=== PATIENT | male | born 1935 | race Caucasian/White ===

== ENCOUNTER 2016-08-22 12:01 | Observation (INO) | payer OTHER ==
[~2016-08-22] VITALS: Ht 172.7 cm; Wt 68.0 kg
[2016-08-22] VITALS (9 sets, daily range): BP systolic 138–199; BP diastolic 69–91; PULSE 54–79; RESP 16–20; TEMP 97.4–97.9; O2SAT 96–98
[~2016-08-22 12:01] MED LIST: ASPI81TA82 PO; FOLI1 PO; LISI-366 PO; METF500 PO; PLAV75TA PO; THIA100T PO
[2016-08-22] MEDS ORDERED: SODIUM CHLORIDE 0.9% FLUSH 5 ML FLUSH IVF PRN (12:15)
[2016-08-22] MEDS ORDERED: ASPIRIN 325 MG TAB PO ONE (12:15)
--- NOTE | 2016-08-22 12:20 | PD ---
HPI Chief Complaint: Chest Pain Time Seen by Provider: 12:14 Travel History International Travel<30 days: No Contact w/Intl Traveler<30days: No Traveled to known affect area: No History of Present Illness HPI 81-year-old male that presents to the ED for evaluation of chest pain. Patient states that he has a history of hyperlipidemia, hypertension, diabetes, previous CVA as well as TIA no history of smoking to presents to the ED for evaluation of chest pain I ambulance. Patient states the chest pain started yesterday night when he comes and goes. Per patient he wasn't too worried about it but his ex- made him come. Ambulance gave patient 3 nitros, aspirin, 4 mg of morphine and it seemed to help with his pain. Per patient the pain seems to have dissipated now. Per patient he was a pressure-like pain that came and went. Per patient the pain was 7 out of 10. Did not radiate. Patient points to the mid chest as the area of the pain. He states that he has no construction job cost estimator but he is somewhat of a poor historian. He denies any nausea or vomiting. No abdominal pain. No bowel movement or urinary issues. He has no allergies to medication. He does not know if he has a construction job cost estimator. He denies any injuries or trauma. Per patient the symptoms worsened today and that 's what may his called the ambulance for him to come here. PFSH Past Medical History Hx Anticoagulant Therapy: Yes Arthritis: No Asthma: No Autoimmune Disease: No Blood Disorders: No Heart Rhythm Problems: No Cancer: Yes (BLADDER CANCER) Cardiovascular Problems: Yes High Cholesterol: Yes ("BORDERLINE" PER PT) Chemotherapy: No Chest Pain: Yes Congestive Heart Failure: No COPD: No Cerebrovascular Accident: Yes Diabetes: Yes Diminished Hearing: Yes (Bilateral LEVELOCK) Endocrine: Yes Gastrointestinal Disorders: No GERD: No Genitourinary: No Headaches: Yes Hiatal Hernia: No Hypertension: Yes Immune Disorder: No Implanted Vascular Access Dvce: Yes Kidney Stones: No Musculoskeletal: No Neurologic: Yes Psychiatric: No Reproductive: No Respiratory: No Immunizations Current: Yes Migraines: No Radiation Therapy: No Renal Failure: No Seizures: No Sickle Cell Disease: No Sleep Apnea: No Thyroid Disease: No Ulcer: No Past Surgical History Abdominal Surgery: No AICD: No Arteriovenous Shunt: No Body Medical Devices: URINARY CATH WITH LEG BAG Cardiac Surgery: No Ear Surgery: No Endocrine Surgery: No Eye Surgery: Yes (BL CATARACT) Genitourinary Surgery: Yes (PROSTATECTOMY) Gynecologic Surgery: No Insulin Pump: No Joint Replacement: No Neurologic Surgery: No Oral Surgery: Yes (TONSILLECTOMY) Pacemaker: No Prostatectomy: Yes Thoracic Surgery: No Tonsillectomy: Yes Other Surgery: Yes (TONSILLECTOMY, BL CATARACT SURGERY) Social History Alcohol Use: No (QUIT) Tobacco Use: No Substance Use: Yes Allergies-Medications (Allergen,Severity, Reaction): Coded Allergies: No Known Allergies (Verified , 08/22/16) Reported Meds & Prescriptions Reported Meds & Active Scripts Active Review of Systems General / Constitutional: No: Fever, Chills, Weight Gain, Weight Loss, Other Eyes: No: Diploplia, Blurred Vision, Photophobia, Drainage, Redness, Foreign Body Sensation, Pain, Tearing, Blind Spots, Visual changes, Blindness, Other HENT: No: Headaches, Vertigo, Lightheadedness, Sore Throat, Rhinitis, Rhinorrhea, Congestion, Nosebleed, Neck Stiffness, Neck Pain, Masses, Gingival Bleeding, Dental Difficulties, Ear Discharge, Earache, Other Cardiovascular: Positive: Chest Pain or Discomfort, Diaphoresis, No: Palpitations, Irregular Rhythm, Tachycardia, Syncope, Dyspnea on exertion, Varicosities, Edema, Cyanosis, Varicosities, Phlebitis, Claudication, Other Respiratory: No: Cough, Shortness of Breath, Wheezing, Sneezing, Orthopnea, Hemoptysis, Stridor, Night Sweats, Pleuritic Pain, Other Gastrointestinal: No: Nausea, Vomiting, Diarrhea, Abdominal Pain, Hematemesis, Hematochezia, Constipation, Changes in Bowel Habits, Indigestion, Dysphagia, Loss of Appetite, Other Genitourinary: No: Urgency, Frequency, Dysuria, Nocturia, Hematuria, Decreased Urinary Output, Oliguria, Hesitancy, Dribbling, Incontinence, Pelvic Pain, Flank Pain, Dyspareunia, Discharge, Dysmenorrhea, Menorrhagia, Metorrhagia, Vaginal Bleeding, Other Musculoskeletal: No: Myalgias, Arthralgias, Limited ROM, Weakness, Cramping, Edema, Pain, Atrophy, Other Skin: No Rash, No Itching, No Dryness, No Lumps, No Hives, No Change in Pigmentation, No Change in nails, No Alopecia, No Lesions, No Breast Lumps, No Breast Tenderness, No Breast Swelling, No Other Neurologic: No: Weakness, Dizziness, Syncope, Focal Abnormalities, Coordination Problem, Tremor, Ataxia, Headache, Change in Mentation, Slurred Speech, Paresthesia, Incontinence, Seizures, Sensory Disturbance, Other Psychiatric: No: Anxiety, Depression, Suicidal Ideations, Disorder of Thought, Mood Disorder, Substance Abuse, Homicidal Ideation, Other Endocrine: No: Heat Intolerance, Cold Intolerance, Polyuria, Polydipsia, Other Hematologic/Lymphatic: No: Easy Bruising, Lymph Node Enlargement, Other Physical Exam Narrative GENERAL: SKIN: Warm and dry. HEAD: Atraumatic. Normocephalic. EYES: Pupils unequal and round (which is chronic for patient). No scleral icterus. No injection or drainage. ENT: No nasal bleeding or discharge. Mucous membranes pink and moist. Tongue is midline. No uvula deviation. NECK: Trachea midline. No JVD. CARDIOVASCULAR: Regular rate and rhythm. No murmurs, history, S4. Chest pain is not reproducible with touch. RESPIRATORY: No accessory muscle use. Clear to auscultation. Breath sounds equal bilaterally. GASTROINTESTINAL: Abdomen soft, non-tender, nondistended. Hepatic and splenic margins not palpable. MUSCULOSKELETAL: Extremities without clubbing, cyanosis, or edema. No obvious deformities. Full range of motion of the upper and lower extremities bilaterally. 2+ pulses bilaterally. No cervical, thoracic, lumbar spine tenderness to palpation. NEUROLOGICAL: Awake and alert. No obvious cranial nerve deficits. Motor grossly within normal limits. Five out of 5 muscle strength in the arms and legs. Normal speech. PSYCHIATRIC: Appropriate mood and affect; insight and judgment normal. Data Data Last Documented VS Vital Signs Date Time Temp Pulse Resp B/P Pulse Ox O2 Delivery O2 Flow Rate FiO2 08/22/16 16:10 60 20 151/70 97 Room Air 08/22/16 12:07 97.9 Orders Electrocardiogram (08/22/16 12:07) Basic Metabolic Panel (Bmp) (08/22/16 12:07) Ckmb (Isoenzyme) Profile (08/22/16 12:07) Complete Blood Count With Diff (08/22/16 12:07) Magnesium (Mg) (08/22/16 12:07) Prothrombin Time / Inr (Pt) (08/22/16 12:07) Act Partial Throm Time (Ptt) (08/22/16 12:07) Troponin I (08/22/16 12:07) Chest, Single Ap (08/22/16 12:07) Ecg Monitoring (08/22/16 12:07) Bilateral Bp Monitoring (08/22/16 12:07) Iv Access Insert/Monitor (08/22/16 12:07) Oximetry (08/22/16 12:07) Oxygen Administration (08/22/16 12:07) Aspirin (Aspirin) (08/22/16 12:15) Sodium Chloride 0.9% Flush (Ns Flush) (08/22/16 12:15) Nitroglycerin Sl (Nitrostat Sl) (08/22/16 13:45) Cta Thor Abd Aorta W Iv C W3d (08/22/16 ) Al-Mag Hy-Si 40-40-4 Mg/Ml Liq (Mag-Al P (08/22/16 14:45) Lidocaine 2% Viscous (Xylocaine 2% Visco (08/22/16 14:45) Iohexol 350 Inj (Omnipaque 350 Inj) (08/22/16 15:34) Troponin I (08/22/16 16:01) Admit Order (Ed Use Only) (08/22/16 16:15) Labs Laboratory Tests Test 08/22/16 12:55 White Blood Count 5.8 TH/MM3 Red Blood Count 4.45 MIL/MM3 Hemoglobin 11.5 GM/DL Hematocrit 34.7 % Mean Corpuscular Volume 77.9 FL Mean Corpuscular Hemoglobin 25.7 PG Mean Corpuscular Hemoglobin 33.0 % Concent Red Cell Distribution Width 14.8 % Platelet Count 184 TH/MM3 Mean Platelet Volume 8.6 FL Neutrophils (%) (Auto) 74.0 % Lymphocytes (%) (Auto) 16.8 % Monocytes (%) (Auto) 4.6 % Eosinophils (%) (Auto) 3.4 % Basophils (%) (Auto) 1.2 % Neutrophils # (Auto) 4.3 TH/MM3 Lymphocytes # (Auto) 1.0 TH/MM3 Monocytes # (Auto) 0.3 TH/MM3 Eosinophils # (Auto) 0.2 TH/MM3 Basophils # (Auto) 0.1 TH/MM3 CBC Comment DIFF FINAL Differential Comment Prothrombin Time 10.7 SEC Prothromb Time International 1.0 RATIO Ratio Activated Partial 30.8 SEC Thromboplast Time Sodium Level 143 MEQ/L Potassium Level 4.3 MEQ/L Chloride Level 104 MEQ/L Carbon Dioxide Level 30.0 MEQ/L Anion Gap 9 MEQ/L Blood Urea Nitrogen 17 MG/DL Creatinine 0.88 MG/DL Estimat Glomerular Filtration 83 ML/MIN Rate Random Glucose 215 MG/DL Calcium Level 8.5 MG/DL Magnesium Level 1.7 MG/DL Total Creatine Kinase 56 U/L Troponin I LESS THAN 0.02 NG/ML MDM Medical Decision Making Medical Screen Exam Complete: Yes Emergency Medical Condition: Yes Medical Record Reviewed: Yes Interpretation(s) EKG shows sinus rhythm but no sign of acute ischemia or arrhythmia. Read by me and attending. Differential Diagnosis ACS versus chest pain versus hypertension versus costochondritis versus a typical chest pain Narrative Course 81-year-old male that presents to the ED for evaluation of chest pain. Patient was properly examined and was found to have signs and symptoms consistent with appears to be concerning for ACS. Patient does have multiple risk factors. Patient did have a stress test that was negative last year. Patient had resolution of symptoms with pain medication as well as nitros and aspirin given to him before coming to the ED. Per recommendation of this time is for labs and imaging and cardiac workup. Patient is agreeable with this. Patient does not appear to have any risk factors for PE at this time. Labs and imaging were essentially unremarkable. Patient started complaining of some severe pain that moves to his abdomen. Patient was given another nitroglycerin with minimal relief. My attending about the patient and recommended to check for aortic dissection secondary to the way he is describing his pain. CT of this was negative. Patient was reassured. From history and physical patient does have comorbidities for ACS. Patient was admitted to the chest pain center. My attending Dr. Day informed me that while I was taking care of another patient the chest pain center cannot admit the patient because of his age and his comorbidities. Therefore a page was made to Dr. Gonsalez for [facility] who agrees to admission for chest pain rule out. Diagnosis Primary Impression: Chest pain Qualified Code: R07.9 - Chest pain, unspecified type Admitting Information Admitting Physician Requests: Javi Gregory Aug 22, 2016 12:20
--- NOTE | 2016-08-22 12:54 | RADRPT ---
EXAM DATE/TIME: 08/22/2016 12:24 [facility] COMPARISON: CHEST SINGLE AP, February 03, 2016, 14:37. INDICATIONS : Chest pain. MEDICAL HISTORY : Hypertension. Diabetes mellitus type II. Hyperlipidemia and TIA. SURGICAL HISTORY : Tonsillectomy. Prostatectomy. Bilateral cataract surgery. ENCOUNTER: Initial ACUITY: 1 day PAIN SCORE: 5/10 LOCATION: Bilateral chest FINDINGS: A single view of the chest demonstrates the lungs to be symmetrically aerated without evidence of mas s, infiltrate or effusion. The cardiomediastinal contours are unremarkable. Osseous structures are intact. CONCLUSION: No acute disease. No significant change has occurred. Valdemar Llamas MD on August 22, 2016 at 12:52 Board Certified Radiologist. This report was verified electronically.
[2016-08-22 13:08] LABS: AUTOMATED NEUTROPHIL # 4.3 TH/MM3 (1.8-7.7); BASOPHIL # 0.1 TH/MM3 (0-0.2); BASOPHIL % 1.2 % (0.0-2.0); EOSINOPHIL # 0.2 TH/MM3 (0-0.4); EOSINOPHIL % 3.4 % (0.0-4.0); HEMATOCRIT 34.7 % (39.0-51.0); HEMO FLAGS DIFF FINAL; LYMPH % 16.8 % (9.0-44.0); MEAN CELL VOLUME 77.9 FL (80.0-100.0); MEAN CORPUSCULAR HEMOGLOBIN 25.7 PG (27.0-34.0); MONO % 4.6 % (0.0-8.0); PLATELET COUNT 184 TH/MM3 (150-450); RED BLOOD COUNT 4.45 MIL/MM3 (4.50-5.90); RED CELL DISTRIBUTION WIDTH 14.8 % (11.6-17.2); WHITE BLOOD COUNT 5.8 TH/MM3 (4.0-11.0)
[2016-08-22 13:20] LABS: APTT (PATIENT) 30.8 SEC (24.3-30.1); PROTHROMBIN TIME - PATIENT 10.7 SEC (9.8-11.6)
[2016-08-22 13:25] LABS: ANION GAP 9 MEQ/L (5-15); BLOOD UREA NITROGEN 17 MG/DL (7-18); CHLORIDE 104 MEQ/L (98-107); GLOMERULAR FILTRATION RATE 83 ML/MIN (>89); MAGNESIUM 1.7 MG/DL (1.5-2.5); POTASSIUM 4.3 MEQ/L (3.5-5.1); SODIUM (NA) 143 MEQ/L (136-145)
[2016-08-22 13:32] LABS: CREATINE KINASE 56 U/L (39-308)
[2016-08-22] MEDS: NITROGLYCERIN 0.4 MG SL 25 TABS/BTL SL SCH ×3 (13:45→14:51)
[2016-08-22] MEDS ORDERED: ALUMINUM/MAGNESIUM/SIMETH 30 ML CUP PO ONE (14:45)
[2016-08-22] MEDS ORDERED: LIDOCAINE VISCOUS 2% SOLN 15 ML UDC PO ONE (14:45)
[2016-08-22] MEDS ORDERED: IOHEXOL 350 MG/ML 10 ML VIAL (for RAD DIAG) IV ONE (15:34)
--- NOTE | 2016-08-22 16:05 | RADRPT ---
EXAM DATE/TIME: 08/22/2016 15:39 [facility] COMPARISON: No previous studies available for comparison. INDICATIONS : Chest and back pain. IV CONTRAST: 100 cc Omnipaque 350 (iohexol) IV RADIATION DOSE: 14.02 CTDIvol (mGy) MEDICAL HISTORY : Cardiovascular disease. Cerebrovascular disease. Hypertension. Bladder cancer. SURGICAL HISTORY : None. ENCOUNTER: Initial ACUITY: 1 day PAIN SCALE: 6/10 LOCATION: Chest TECHNIQUE: Volumetric scanning was performed using a multi-row detector CT scanner. The data was post processed with a variety of visualization algorithms including full volume maximum intensity pr ojection, multi-planar sliding thin slab reformation, curved planar reformation, and surface renderin g techniques. Using automated exposure control and adjustment of the mA and/or kV according to patie nt size, radiation dose was kept as low as reasonably achievable to obtain optimal diagnostic quality images. FINDINGS: There is good visualization of the aorta. There is mild dilatation of the ascending an d descending aorta without evidence for a dissection. There is no evidence for central pulmonary emboli. There is mild compensated cardiomegaly. Marked c oronary artery calcifications are seen including the left main and LAD. The right coronary is small and diminutive. There are no suspicious lung lesions identified. There is mild pleural thickening along the right analy st wall with associated calcifications. CONCLUSION: 1. There is no evidence for dissection or aneurysm. There is no evidence for central pulmonary emboli . 2. Minimal pleural thickening right chest wall. Esau Hollingsworth MD FACR on August 22, 2016 at 15:57 Board Certified Radiologist. This report was verified electronically.
[2016-08-22] MEDS ORDERED: SODIUM CHLORIDE 0.9% FLUSH 5 ML FLUSH FLUSH PRN (16:45)
[2016-08-22] MEDS ORDERED: TEMAZEPAM 15 MG CAP PO PRN (16:45)
[2016-08-22] MEDS ORDERED: MAGNESIUM HYDROXIDE SUSP 30 ML CUP PO PRN (16:45)
[2016-08-22] MEDS ORDERED: SENNOSIDES 8.6 MG TAB PO PRN (16:45)
[2016-08-22] MEDS ORDERED: ONDANSETRON HCL 4 MG/2 ML VIAL IVP PRN (16:45)
[2016-08-22] MEDS ORDERED: ACETAMINOPHEN 325 MG TAB PO PRN (16:45)
[2016-08-22] MEDS ORDERED: BISACODYL 10 MG SUPP PR PRN (16:45)
[2016-08-22] MEDS ORDERED: PROCHLORPERAZINE 25 MG SUPP PR PRN (16:45)
--- NOTE | 2016-08-22 17:20 | HHI.HP ---
[facility] Kerri Glasgow MD Admission Diagnosis chest pain, r/o ACS Diagnoses: Chief Complaint: chest pain Travel History International Travel<30 Days: No Contact w/Intl Traveler <30 Da: No Traveled to Known Affected Are: No History of Present Illness 81-year-old male with history of CVA on Plavix, HTN, HLD, DM, presents with chest pains. The patient reports he has had chest pain intermittently for years however became much worse over the past 2 days. He locates the chest pain to the substernal area with radiation into the epigastric region, described as an intermittent 7/10 ache, associated with occasional nausea, diaphoresis, but no shortness of breath. He did have an episode of vomiting yesterday associated with the pain. Of note, the patient is an extremely poor historian, states he has trouble with his memory since his stroke. Per ER PA note, 911 was called by the patient's ex-, he was given three nitros, aspirin, and morphine en route which did relieve the pain. He denies any pain currently. Denies fevers/ chills, cough, congestion, palpitations, orthopnea, weight gain, abdominal pains , diarrhea, or urinary complaints. Review of Systems ROS Limitations: Poor Historian Except as stated in HPI: all other systems reviewed are Neg Past Family Social History Past Medical History CVA on Plavix HTN HLD DM BPH Past Surgical History Prostatectomy Bilateral cataract surgery Tonsillectomy Reported Medications Patient does not know his current medications, nursing to update home med list Per prior EMR: Thiamine HCl 100 Mg Tab 100 Mg PO DAILY 30 Days Folate 1 Mg Tab (Folic Acid) 1 Mg Tab 1 Mg PO DAILY 30 Days Lisinopril 40 mg (Lisinopril) 40 Mg Tab 1 Tab PO DAILY Plavix (Clopidogrel Bisulfate) 75 Mg Tab 75 Mg PO DAILY Aspir-81 (Aspirin) 81 Mg Tab 81 Mg PO DAILY Glucophage 500 mg (Metformin HCl) 500 Mg Tab 500 Mg PO DAILY Allergies: Coded Allergies: No Known Allergies (Verified , 08/22/16) Active Ordered Medications Current Medications Medications (Trade) Dose Ordered Sig/Annelise Route Start Time Stop Time Status Last Admin (NS Flush) 2 ml UNSCH PRN FLUSH 08/22/16 16:45 (NS Flush) 2 ml BID FLUSH 08/22/16 21:00 (Tylenol) 650 mg Q4H PRN PO 08/22/16 16:45 (Zofran Inj) 4 mg Q6H PRN IVP 08/22/16 16:45 (Compazine Supp) 25 mg Q12H PRN PA 08/22/16 16:45 (Dulcolax Supp) 10 mg DAILY PRN PA 08/22/16 16:45 (Milk Of Magnesia Liq) 30 ml Q12H PRN PO 08/22/16 16:45 (Senokot) 17.2 mg Q12H PRN PO 08/22/16 16:45 (Restoril) 15 mg HS PRN PO 08/22/16 16:45 (Lovenox Inj) 40 mg Q24H SQ 08/22/16 18:00 Family History Father with heart disease, from [place] age 50 Brother with cancer Mother with unknown cancer Social History Lives with ex-. Cannot read or write Prior tobacco use, smoked 1 PPD since age 17, quit 1 month ago Denies alcohol or illicit drug use. Physical Exam Vital Signs Vital Signs Date Time Temp Pulse Resp B/P Pulse Ox O2 Delivery O2 Flow Rate FiO2 08/22/16 16:10 60 20 151/70 97 Room Air 08/22/16 14:42 20 08/22/16 14:37 61 20 173/84 97 Room Air 08/22/16 12:16 97 Room Air 08/22/16 12:07 97.9 79 20 176/91 96 Physical Exam GENERAL: Well-nourished, well-developed elderly male patient in [facility]. SKIN: Warm and dry. No rash. HEAD: Normocephalic. Atraumatic. EYES: Pupils equal and round. No scleral icterus. No injection or drainage. ENT: No nasal bleeding or discharge. Mucous membranes pink and moist. NECK: Supple. Trachea midline. CARDIOVASCULAR: Regular rate and rhythm. S1, S2 noted. No murmur appreciated. RESPIRATORY: No accessory muscle use. Clear to auscultation. Breath sounds equal bilaterally. GASTROINTESTINAL: Abdomen soft, non-tender, nondistended. Normoactive bowel sounds x4. MUSCULOSKELETAL: No obvious deformities. Extremities without clubbing, cyanosis , or edema. NEUROLOGICAL: Awake and alert. No obvious cranial nerve deficits. Motor grossly within normal limits. Normal speech. PSYCHIATRIC: Appropriate mood and affect; insight and judgment limited. Laboratory Laboratory Tests Test 08/22/16 08/22/16 12:55 16:10 White Blood Count 5.8 Red Blood Count 4.45 Hemoglobin 11.5 Hematocrit 34.7 Mean Corpuscular Volume 77.9 Mean Corpuscular Hemoglobin 25.7 Mean Corpuscular Hemoglobin 33.0 Concent Red Cell Distribution Width 14.8 Platelet Count 184 Mean Platelet Volume 8.6 Neutrophils (%) (Auto) 74.0 Lymphocytes (%) (Auto) 16.8 Monocytes (%) (Auto) 4.6 Eosinophils (%) (Auto) 3.4 Basophils (%) (Auto) 1.2 Neutrophils # (Auto) 4.3 Lymphocytes # (Auto) 1.0 Monocytes # (Auto) 0.3 Eosinophils # (Auto) 0.2 Basophils # (Auto) 0.1 CBC Comment DIFF FINAL Differential Comment Prothrombin Time 10.7 Prothromb Time International 1.0 Ratio Activated Partial 30.8 Thromboplast Time Sodium Level 143 Potassium Level 4.3 Chloride Level 104 Carbon Dioxide Level 30.0 Anion Gap 9 Blood Urea Nitrogen 17 Creatinine 0.88 Estimat Glomerular Filtration 83 Rate Random Glucose 215 Calcium Level 8.5 Magnesium Level 1.7 Total Creatine Kinase 56 Troponin I LESS THAN 0.02 LESS THAN 0.02 Result Diagram: 08/22/16 1255 08/22/16 1255 Assessment and Plan Assessment and Plan 81-year-old male with history of CVA on Plavix, HTN, HLD, DM, prior tobacco use , presents with chest pains. Chest Pain: unclear etiology, no hx of CAD however +risk factors. CXR images reviewed by me, unremarkable. Aorta CTA negative for dissection/aneurysm, negative for PE. Nuclear stress test 04/03/16 normal. Initial troponins 0.02, EKG without acute ST changes. Continue to rule out ACS with serial cardiac enzymes/EKGs. Continue patient's aspirin/Plavix. Monitor on telemetry. O2 as needed. IV morphine prn. Epigastric Pain: possibly related to chest pain as above. Check Lipase. S/p Maalox and viscous lidocaine in the ED. Continue IV Zofran prn. Start PPI. Accelerated Hypertension: BP 199/91 in the ED, continue patient's lisinopril. Clonidine as needed. History of CVA: Chronic, continue patient's aspirin/Plavix. PT consult. Diabetes mellitus: Chronic, hemoglobin A1c 8.7 on 04/03/16. Continue patient's metformin. Monitor Accu-Cheks, cover with low-dose SSI. DVT prophylaxis: Lovenox Written by Caty Alberto, acting as scribe for Dr. Eldridge on 08/22/16 at 17:20. All or portions of this note were transcribed by scribe Caty Alberto. I, Dr. Mercy Eldridge personally performed the history, physical exam, and medical decision making; and confirmed the accuracy of the information in the transcribed note. Authenticated by Dr. Mercy Eldridge on 08/22/16 at 18:30. Discussed Condition With Patient, ER Caty Goldstein PA-C Aug 22, 2016 17:20 Mercy Eldridge MD Aug 23, 2016 07:20
[2016-08-22] MEDS ORDERED: PLAV75TA29 PO (17:47)
[2016-08-22] MEDS ORDERED: ASPI81CH CHEW (17:47)
[2016-08-22] MEDS ORDERED: LISI40TA PO (17:48)
[2016-08-22] MEDS ORDERED: METF500T PO (17:48)
[2016-08-22] MEDS ORDERED: ENOXAPARIN SODIUM 40 MG/0.4 ML SYRINGE SQ SCH (18:00)
[2016-08-22] MEDS ORDERED: ENALAPRILAT 2.5 MG/2 ML VIAL IV PUSH PRN (18:15)
[2016-08-22] MEDS ORDERED: GLUCAGON 1 MG/ML VIAL OTHER PRN (18:15)
[2016-08-22] MEDS ORDERED: cloNIDine HCL 0.1 MG TAB PO PRN (18:15)
[2016-08-22] MEDS ORDERED: NON-FORMULARY DRUG (Lisinopril 40 MG) PO SCH (18:15)
[2016-08-22] MEDS ORDERED: DEXTROSE 50% IN WATER 50 ML VIAL(D50) IV PUSH PRN (18:15)
[2016-08-22] MEDS ORDERED: MORPHINE SULFATE 4 MG/ML INJ IV PRN ×2 (18:15)
[2016-08-22] MEDS ORDERED: NALOXONE HCL 0.4 MG/ML AMP IV PRN (18:15)
[2016-08-22] MEDS ORDERED: PANTOPRAZOLE SOD 40 MG DELAYED RELEASE TAB PO ONE (18:30)
[2016-08-22] MEDS: INSULIN ASPART SUPPLEMENTAL SCALE SQ SCH (20:58)
[2016-08-22] MEDS: SODIUM CHLORIDE 0.9% FLUSH 5 ML FLUSH FLUSH SCH (20:58)
[2016-08-23 03:49] VITALS: BP 144/75; PULSE 63; RESP 20; TEMP 97.4; O2SAT 97
[2016-08-23] MEDS: INSULIN ASPART SUPPLEMENTAL SCALE SQ SCH (06:08)
[2016-08-23] MEDS ORDERED: NITR1SUB3 SL (07:23)
--- NOTE | 2016-08-23 07:25 | HHI.FF ---
Face to Face Verification Diagnosis: (1) Chest pain (2) Hypertension (3) Poorly controlled diabetes mellitus (4) Accelerated hypertension (5) Syncope (6) Hypertensive urgency (7) BPH (benign prostatic hyperplasia) (8) Bladder cancer Physical Therapy Order: Evaluate and Treat Home Health Nursing Order: Medical education Signs/symptoms of disease process Diabetic education Medication education-adverse effect Nursing assessment with vital signs I have seen patient Ernie Elliott on 08/23/16. My clinical findings support the need for the requested home health care services because: Ltd mobility - disease progression Patient has SOB I certify that my clinical findings support that this patient is homebound because: Post-op weakness Impaired cognitive ability/safety Unsteady gait/balance Mercy Eldridge MD Aug 23, 2016 07:25
--- NOTE | 2016-08-23 07:25 | HHI.DCPOC ---
Discharge Care Plan Goals to Promote Your Health * To prevent worsening of your condition and complications * To maintain your health at the optimal level Directions to Meet Your Goals Take your medications as prescribed Follow your dietary instruction Follow activity as directed Keep your appointments as scheduled Take your immunizations and boosters as scheduled If your symptoms worsen call your PCP, if no PCP go to Urgent Care Center or Emergency Room Smoking is Dangerous to Your Health. Avoid second hand smoke Call the 24-hour hour crisis hotline for domestic abuse at Mercy Eldridge MD Aug 23, 2016 07:24
[2016-08-23 07:37] LABS: AUTOMATED NEUTROPHIL # 3.3 TH/MM3 (1.8-7.7); BASOPHIL % 0.8 % (0.0-2.0); EOSINOPHIL # 0.2 TH/MM3 (0-0.4); EOSINOPHIL % 3.3 % (0.0-4.0); HEMATOCRIT 33.8 % (39.0-51.0); HEMO FLAGS DIFF FINAL; LYMPH % 20.1 % (9.0-44.0); LYMPHOCYTE # 0.9 TH/MM3 (1.0-4.8); MEAN CELL VOLUME 77.7 FL (80.0-100.0); MEAN CORPUSCULAR HGB CONC 33.5 % (32.0-36.0); NEUT % 70.8 % (16.0-70.0); PLATELET COUNT 159 TH/MM3 (150-450); RED BLOOD COUNT 4.35 MIL/MM3 (4.50-5.90); RED CELL DISTRIBUTION WIDTH 14.7 % (11.6-17.2); WHITE BLOOD COUNT 4.7 TH/MM3 (4.0-11.0)
[2016-08-23 08:00] LABS: BICARBONATE 30.2 MEQ/L (21.0-32.0); POTASSIUM 4.1 MEQ/L (3.5-5.1)
[2016-08-23 08:12] VITALS: BP 186/107; PULSE 68; RESP 19; TEMP 98; O2SAT 98
[2016-08-23] MEDS ORDERED: AMLO2.5T PO (08:25)
[2016-08-23] MEDS ORDERED: PILL SPLITTER OTHER PRN (08:45)
[2016-08-23] MEDS ORDERED: PANTOPRAZOLE SOD 40 MG DELAYED RELEASE TAB PO SCH (09:00)
[2016-08-23] MEDS ORDERED: ASPIRIN 81 MG CHEW TAB CHEW SCH (09:00)
[2016-08-23] MEDS ORDERED: metFORMIN HCL 500 MG TAB PO SCH (09:00)
[2016-08-23] MEDS ORDERED: amLODIPine BESYLATE 5 MG TAB PO ONE (09:00)
[2016-08-23] MEDS ORDERED: LISINOPRIL 20 MG TAB PO SCH (09:00)
[2016-08-23] MEDS ORDERED: CLOPIDOGREL 75 MG TAB PO SCH (09:00)
[2016-08-23 09:45] VITALS: PULSE 60
[2016-08-23] MEDS: SODIUM CHLORIDE 0.9% FLUSH 5 ML FLUSH FLUSH SCH (09:52)
--- NOTE | 2016-08-23 10:11 | HHI.PR ---
Subjective Remarks Feels much better. No chest pain overnight. No n/v/d/c. Able to ambulate. Feels comfortable to go home. Objective Vitals Vital Signs Date Time Temp Pulse Resp B/P Pulse Ox O2 Delivery O2 Flow Rate FiO2 08/23/16 09:45 60 08/23/16 08:12 98.0 68 19 186/107 98 08/23/16 03:49 97.4 63 20 144/75 97 08/22/16 23:54 97.4 55 20 138/69 98 08/22/16 20:05 54 08/22/16 19:32 21 08/22/16 19:10 97.4 62 20 152/69 96 08/22/16 18:34 180/90 08/22/16 18:09 79 08/22/16 17:32 97.4 68 16 199/91 98 08/22/16 16:10 60 20 151/70 97 Room Air 08/22/16 14:42 20 08/22/16 14:37 61 20 173/84 97 Room Air 08/22/16 12:16 97 Room Air 08/22/16 12:07 97.9 79 20 176/91 96 I/O 08/22/16 08/22/16 08/22/16 08/23/16 08/23/16 08/23/16 07:00 15:00 23:00 07:00 15:00 23:00 Output Total 400 ml Balance -400 ml Output Urine Total 400 ml Result Diagram: 08/23/16 0647 08/23/16 0647 Imaging Last Impressions Chest X-Ray 08/22/16 1207 Signed Impressions: Service Date/Time: Monday, August 22, 2016 12:24 - CONCLUSION: No acute disease. No significant change has occurred. Valdemar Llamas MD Aorta CTA 08/22/16 0000 Signed Impressions: Service Date/Time: Monday, August 22, 2016 15:39 - CONCLUSION: 1. There is no evidence for dissection or aneurysm. There is no evidence for central pulmonary emboli. 2. Minimal pleural thickening right chest wall. Esau Hollingsworth MD FACR Objective Remarks GENERAL: Well-nourished, well-developed elderly male patient in [facility]. SKIN: Warm and dry. No rash. HEAD: Normocephalic. Atraumatic. EYES: Pupils equal and round. No scleral icterus. No injection or drainage. ENT: No nasal bleeding or discharge. Mucous membranes pink and moist. NECK: Supple. Trachea midline. CARDIOVASCULAR: Regular rate and rhythm. S1, S2 noted. No murmur appreciated. RESPIRATORY: No accessory muscle use. Clear to auscultation. Breath sounds equal bilaterally. GASTROINTESTINAL: Abdomen soft, non-tender, nondistended. Normoactive bowel sounds x4. MUSCULOSKELETAL: No obvious deformities. Extremities without clubbing, cyanosis , or edema. NEUROLOGICAL: Awake and alert. No obvious cranial nerve deficits. Motor grossly within normal limits. Normal speech. PSYCHIATRIC: Appropriate mood and affect; insight and judgment limited. A/P Assessment and Plan 81-year-old male with history of CVA on Plavix, HTN, HLD, DM, prior tobacco use , presents with chest pains. Chest Pain: unclear etiology, no hx of CAD however +risk factors. CXR images reviewed by me, unremarkable. Aorta CTA negative for dissection/aneurysm, negative for PE. Nuclear stress test 04/03/16 normal. Initial troponins 0.02, EKG without acute ST changes. Continue to rule out ACS with serial cardiac enzymes/EKGs. Continue patient's aspirin/Plavix. Monitor on telemetry. O2 as needed. IV morphine prn. Troponins negative x3. Patient has no pain overnight. Epigastric Pain: possibly related to chest pain as above. Check Lipase. S/p Maalox and viscous lidocaine in the ED. Continue IV Zofran prn. Start PPI. Accelerated Hypertension: BP 199/91 in the ED, continue patient's lisinopril. Clonidine as needed. History of CVA: Chronic, continue patient's aspirin/Plavix. PT consult. Diabetes mellitus: Chronic, hemoglobin A1c 8.7 on 04/03/16. Continue patient's metformin. Monitor Accu-Cheks, cover with low-dose SSI. DVT prophylaxis: Lovenox Discharge Planning Improved DC home in stable condition to follow up as OP with PCP and consultants Diet: Heart healthy diet Activity ad mamta as tolerated Meds per med reconciliations Mercy Eldridge MD Aug 23, 2016 10:11
--- NOTE | 2016-08-23 16:26 | EKG ---
Date Performed: 08/22/2016 Time Performed: 17:58:43 PTAGE: 81 years EKG: SINUS BRADYCARDIA LEFT ANTERIOR FASCICULAR BLOCK ABNORMAL ECG Since PREVIOUS TRACING , now bradycardic PREVIOUS TRACIN08/22/2016 12.08 DOCTOR: Ailyn Johnson Interpretating Date/Time 08/23/2016 16:25:15
--- NOTE | 2016-08-24 07:48 | EKG ---
Date Performed: 08/22/2016 Time Performed: 12:08:40 PTAGE: 81 years EKG: Sinus rhythm LEFT ANTERIOR FASCICULAR BLOCK MINIMAL VOLTAGE CRITERIA FOR LVH, CONSIDER NORMAL VARIANT Compared to the previous tracing though prior ekg was read as containing Right bundle branch block there is like ly no clinical difference between this and the prior ABNORMAL ECG PREVIOUS TRACING : 04/02/2016 22.27 DOCTOR: Corbin Quigley Interpretating Date/Time 08/24/2016 07:47:12
--- NOTE | 2016-08-24 07:48 | EKG ---
Date Performed: 08/22/2016 Time Performed: 22:42:02 PTAGE: 81 years EKG: SINUS BRADYCARDIA LEFT ANTERIOR FASCICULAR BLOCK Compared to the previous tracing sinus rat e has slowed ABNORMAL ECG PREVIOUS TRACING : 08/22/2016 17.58 DOCTOR: Corbin Quigley Interpretating Date/Time 08/24/2016 07:47:24
[2016-08-24] MEDS ORDERED: amLODIPine BESYLATE 5 MG TAB PO SCH (09:00)
== END 2016-08-23 11:22 | disposition home or self-care (01) ==
LOC: NEPC 12:01 → NEDA 16:16 → NEPHCDU 17:39
PROVIDERS: ADMIT Hospitalist; ATTEND Hospitalist
DX: R07.9 Chest pain, unspecified (principal); Z86.73 Personal history of transient ischemic attack (TIA), and cerebral infarction without residual deficits; I10 Essential (primary) hypertension; E78.5 Hyperlipidemia, unspecified; E11.9 Type 2 diabetes mellitus without complications; Z85.51 Personal history of malignant neoplasm of bladder; E78.00 Pure hypercholesterolemia, unspecified; R51 Headache; Z79.01 Long term (current) use of anticoagulants; R61 Generalized hyperhidrosis; R11.2 Nausea with vomiting, unspecified; R10.13 Epigastric pain; I44.4 Left anterior fascicular block; Z79.84 Long term (current) use of oral hypoglycemic drugs
CPT/HCPCS: 71010; 71275; 74174; 80048; 82550; 82948; 83690; 83735; 84484; 85025; 85610; 85730; 93005; 97161; 99285; G0378; G8987; G8988; J1650; J1815; Q9967

== ENCOUNTER 2016-10-30 20:56 | Observation (INO) | payer OTHER ==
[~2016-10-30] VITALS: Ht 167.6 cm; Wt 70.0 kg
[~2016-10-30 20:56] MED LIST changes: +AMLO2.5T PO; +ASPI81CH CHEW; -ASPI81TA82 PO; -FOLI1 PO; -LISI-366 PO; +LISI40TA PO; -METF500 PO; +METF500T PO; +NITR1SUB3 SL; -PLAV75TA PO; +PLAV75TA29 PO; -THIA100T PO
[2016-10-30 21:07] VITALS: BP 148/70; PULSE 78; RESP 18; TEMP 97.9; O2SAT 98
--- NOTE | 2016-10-30 21:11 | PD ---
HPI Chief Complaint: Cardiac Complaint Time Seen by Provider: 21:05 Travel History International Travel<30 days: No Contact w/Intl Traveler<30days: No History of Present Illness HPI 81-year-old male presents with chest pain over the past couple of days that is been worse than what he typically has over the past couple years. He states he took aspirin prior to arrival. The nitroglycerin he was given in the ambulance made his pain go from an 8 to a 1. He states he's had testing before [place] but does not remember when he thinks maybe a year or so ago. He is not sure which test it was. He denies other concurrent complaints at this time. He feels worse when he moves around. He denies other modifying factors. Quality pressure. Severity 1 out of 10 currently. History is supplemented by ambulance team. PFSH Past Medical History Hx Anticoagulant Therapy: Yes Arthritis: No Asthma: No Autoimmune Disease: No Blood Disorders: No Heart Rhythm Problems: No Cancer: Yes (BLADDER CANCER) Cardiac Catheterization: No Cardiovascular Problems: Yes High Cholesterol: Yes Chemotherapy: No Chest Pain: Yes Congestive Heart Failure: No COPD: No Cerebrovascular Accident: Yes Diabetes: Yes Diminished Hearing: Yes (Bilateral GAMBELL) Endocrine: Yes Gastrointestinal Disorders: No GERD: No Genitourinary: No Headaches: Yes Hiatal Hernia: No Hypertension: Yes Immune Disorder: No Implanted Vascular Access Dvce: Yes Kidney Stones: No Musculoskeletal: No Neurologic: Yes Psychiatric: No Reproductive: No Respiratory: No Immunizations Current: Yes Migraines: No Radiation Therapy: No Renal Failure: No Seizures: No Sickle Cell Disease: No Sleep Apnea: No Thyroid Disease: No Ulcer: No Past Surgical History Abdominal Surgery: No AICD: No Arteriovenous Shunt: No Body Medical Devices: URINARY CATH WITH LEG BAG Cardiac Surgery: No Coronary Artery Bypass Graft: No Ear Surgery: No Endocrine Surgery: No Eye Surgery: Yes (BL CATARACT) Genitourinary Surgery: Yes (PROSTATECTOMY) Gynecologic Surgery: No Insulin Pump: No Joint Replacement: No Neurologic Surgery: No Oral Surgery: Yes (TONSILLECTOMY) Pacemaker: No Prostatectomy: Yes Thoracic Surgery: No Tonsillectomy: Yes Other Surgery: Yes (TONSILLECTOMY, BL CATARACT SURGERY) Social History Alcohol Use: No (QUIT) Tobacco Use: No Substance Use: No Allergies-Medications (Allergen,Severity, Reaction): Coded Allergies: No Known Allergies (Verified , 08/22/16) Reported Meds & Prescriptions Reported Meds & Active Scripts Active Nitroglycerin SL (Nitroglycerin) 0.4 Mg Subl 0.4 Mg SL DIRECTED PRN ONE TABLET UNDER THE TONGUE NEEDED FOR CHEST PAIN, MAY REPEAT EVERY FIVE MINUTES FOR A TOTAL OF 3 DOSES OR CALL 911 IF NO RELIEF Reported Amlodipine (Amlodipine Besylate) 10 Mg Tab 10 Mg PO DAILY Metformin (Metformin HCl) 500 Mg Tab 500 Mg PO DAILY With a meal Lisinopril 40 Mg Tab 40 Mg PO DAILY Plavix (Clopidogrel Bisulfate) 75 Mg Tab 75 Mg PO DAILY Aspirin 81 Mg Chew 81 Mg CHEW DAILY Review of Systems Except as stated in HPI: all other systems reviewed are Neg Physical Exam Narrative GENERAL: Well-nourished, well-developed patient. SKIN: Warm and dry. HEAD: Normocephalic and atraumatic. EYES: No injection or drainage. ENT: No nasal drainage noted. NECK: Supple, trachea midline. CARDIOVASCULAR: Regular rate and rhythm RESPIRATORY: Breath sounds equal bilaterally. No accessory muscle use. GASTROINTESTINAL: Abdomen soft, non-tender, nondistended. EXTREMITIES: No edema. NEUROLOGICAL: Awake and alert. Motor and sensory grossly within normal limits. Normal speech. Data Data Last Documented VS Vital Signs Date Time Temp Pulse Resp B/P Pulse Ox O2 Delivery O2 Flow Rate FiO2 10/30/16 21:12 99 Room Air 10/30/16 21:12 81 10/30/16 21:07 97.9 18 148/70 Orders Electrocardiogram (10/30/16 21:05) Ckmb (Isoenzyme) Profile (10/30/16 21:05) Complete Blood Count With Diff (10/30/16 21:05) Comprehensive Metabolic Panel (10/30/16 21:05) Magnesium (Mg) (10/30/16 21:05) Prothrombin Time / Inr (Pt) (10/30/16 21:05) Act Partial Throm Time (Ptt) (10/30/16 21:05) Troponin I (10/30/16 21:05) Chest, Single Ap (10/30/16 21:05) Ecg Monitoring (10/30/16 21:05) Bilateral Bp Monitoring (10/30/16 21:05) Iv Access Insert/Monitor (10/30/16 21:05) Oximetry (10/30/16 21:05) Nitroglycerin 2% Oint (Nitroglycerin 2% (10/30/16 21:15) Sodium Chloride 0.9% Flush (Ns Flush) (10/30/16 21:15) Activity Bed Rest With Brp (10/30/16 22:06) Vital Signs (Adult) Q4H (10/30/16 22:06) Cardiac Rhythm .As Directed (10/30/16 22:) Notify Dr: Other .PRN (10/30/16 22:) Notify Parameters (10/30/16 22:06) Resp Oxygen Nasal Cannula (10/30/16 ) Diet Npo (10/31/16 Breakfast) Ckmb (Isoenzyme) Profile (10/30/16 22:06) Ckmb (Isoenzyme) Profile (10/31/16 01:06) Troponin I (10/30/16 22:06) Troponin I (10/31/16 01:06) Electrocardiogram (10/30/16 22:06) Electrocardiogram (10/31/16 01:06) ^ Obtain (10/30/16 22:06) Sodium Chloride 0.9% Flush (Ns Flush) (10/30/16 22:15) Claims Consultant / Telemetry LUIS.[id number] (10/30/16 22:06) Admit Order (Ed Use Only) (10/30/16 22:06) Labs Laboratory Tests Test 10/30/16 21:06 White Blood Count 6.3 TH/MM3 Red Blood Count 4.36 MIL/MM3 Hemoglobin 11.0 GM/DL Hematocrit 33.9 % Mean Corpuscular Volume 77.7 FL Mean Corpuscular Hemoglobin 25.2 PG Mean Corpuscular Hemoglobin 32.5 % Concent Red Cell Distribution Width 15.1 % Platelet Count 188 TH/MM3 Mean Platelet Volume 8.7 FL Neutrophils (%) (Auto) 65.6 % Lymphocytes (%) (Auto) 24.6 % Monocytes (%) (Auto) 5.1 % Eosinophils (%) (Auto) 3.8 % Basophils (%) (Auto) 0.9 % Neutrophils # (Auto) 4.1 TH/MM3 Lymphocytes # (Auto) 1.5 TH/MM3 Monocytes # (Auto) 0.3 TH/MM3 Eosinophils # (Auto) 0.2 TH/MM3 Basophils # (Auto) 0.1 TH/MM3 CBC Comment DIFF FINAL Differential Comment Prothrombin Time 10.7 SEC Prothromb Time International 1.0 RATIO Ratio Activated Partial 29.9 SEC Thromboplast Time Sodium Level 142 MEQ/L Potassium Level 3.6 MEQ/L Chloride Level 107 MEQ/L Carbon Dioxide Level 25.8 MEQ/L Anion Gap 9 MEQ/L Blood Urea Nitrogen 16 MG/DL Creatinine 1.02 MG/DL Estimat Glomerular Filtration 70 ML/MIN Rate Random Glucose 211 MG/DL Calcium Level 8.3 MG/DL Magnesium Level 1.8 MG/DL Total Bilirubin 0.2 MG/DL Aspartate Amino Transf 16 U/L (AST/SGOT) Alanine Aminotransferase 19 U/L (ALT/SGPT) Alkaline Phosphatase 92 U/L Total Creatine Kinase 58 U/L Troponin I LESS THAN 0.02 NG/ML Total Protein 6.6 GM/DL Albumin 3.4 GM/DL MDM Medical Decision Making Medical Screen Exam Complete: Yes Emergency Medical Condition: Yes (pmh confirmed, March 2016 stress test noted , admission August 2016 noted) Interpretation(s) EKG shows sinus rhythm at 80, increased T-wave changes similar to prior except for V2 has resolved Last 24 hours Impressions Chest X-Ray 10/30/162104 Signed Impressions: Service Date/Time: Sunday, October 30, 2016 21:07 - CONCLUSION: No evidence of acute cardiopulmonary disease. Leodan Menendez MD CBC & BMP Diagram 10/30/16 21:06 Differential Diagnosis Musculoskeletal, gastritis, angina Narrative Course Will check blood work, chest x-ray, EKG and dose with Nitropaste and reevaluate. Given risk factors he will need to be observed for further testing ed workup no acute, pain resolved, agrees to [facility] observation Diagnosis Primary Impression: Chest pain Qualified Code: R07.9 - Chest pain, unspecified type Jennie Pierce MD October 30, 2016 21:10
[2016-10-30 21:12] VITALS: O2SAT 99
[2016-10-30] MEDS ORDERED: NITROGLYCERIN 2% OINT 1 GM PACKET TOP ONE (21:15)
[2016-10-30] MEDS ORDERED: SODIUM CHLORIDE 0.9% FLUSH 10 ML FLUSH IVF PRN (21:15)
[2016-10-30] MEDS ORDERED: AMLO10TA2 PO (21:17)
[2016-10-30 21:27] LABS: AUTOMATED NEUTROPHIL # 4.1 TH/MM3 (1.8-7.7); BASOPHIL # 0.1 TH/MM3 (0-0.2); BASOPHIL % 0.9 % (0.0-2.0); EOSINOPHIL # 0.2 TH/MM3 (0-0.4); EOSINOPHIL % 3.8 % (0.0-4.0); HEMATOCRIT 33.9 % (39.0-51.0); HEMO FLAGS DIFF FINAL; LYMPH % 24.6 % (9.0-44.0); LYMPHOCYTE # 1.5 TH/MM3 (1.0-4.8); MEAN CELL VOLUME 77.7 FL (80.0-100.0); MEAN CORPUSCULAR HEMOGLOBIN 25.2 PG (27.0-34.0); MEAN CORPUSCULAR HGB CONC 32.5 % (32.0-36.0); MONO % 5.1 % (0.0-8.0); NEUT % 65.6 % (16.0-70.0); PLATELET COUNT 188 TH/MM3 (150-450); RED BLOOD COUNT 4.36 MIL/MM3 (4.50-5.90); RED CELL DISTRIBUTION WIDTH 15.1 % (11.6-17.2); WHITE BLOOD COUNT 6.3 TH/MM3 (4.0-11.0)
--- NOTE | 2016-10-30 21:29 | RADRPT ---
EXAM DATE/TIME: 10/30/2016 21:07 [facility] COMPARISON: CHEST SINGLE AP, August 22, 2016, 12:24. INDICATIONS : Chest pain MEDICAL HISTORY : Hypertension. Diabetes mellitus type II. Hyperlipidemia and TIA. SURGICAL HISTORY : Tonsillectomy. Prostatectomy. Bilateral cataract surgery. ENCOUNTER: Initial ACUITY: 1 day PAIN SCORE: 7/10 LOCATION: Bilateral chest FINDINGS: A single view of the chest demonstrates the lungs to be symmetrically aerated without evidence of mas s, infiltrate or effusion. The cardiomediastinal contours are unremarkable. Osseous structures are intact. CONCLUSION: No evidence of acute cardiopulmonary disease. Leodan Menendez MD on October 30, 2016 at 21:27 Board Certified Radiologist. This report was verified electronically.
[2016-10-30 21:36] LABS: APTT (PATIENT) 29.9 SEC (24.3-30.1); PROTHROMBIN TIME - PATIENT 10.7 SEC (9.8-11.6)
[2016-10-30 21:49] LABS: ANION GAP 9 MEQ/L (5-15); AST (GOT) 16 U/L (15-37); BICARBONATE 25.8 MEQ/L (21.0-32.0); BLOOD UREA NITROGEN 16 MG/DL (7-18); CHLORIDE 107 MEQ/L (98-107); GLOMERULAR FILTRATION RATE 70 ML/MIN (>89); MAGNESIUM 1.8 MG/DL (1.5-2.5); POTASSIUM 3.6 MEQ/L (3.5-5.1); SODIUM (NA) 142 MEQ/L (136-145)
[2016-10-30 21:53] LABS: ALKALINE PHOSPHATASE 92 U/L (45-117); ALT (GPT) 19 U/L (12-78); TOTAL BILIRUBIN ADULT 0.2 MG/DL (0.2-1.0)
[2016-10-30 21:56] LABS: CREATINE KINASE 58 U/L (39-308)
[2016-10-30 22:11] VITALS: BP 118/69; PULSE 65; RESP 18; O2SAT 99
[2016-10-30] MEDS ORDERED: SODIUM CHLORIDE 0.9% FLUSH 10 ML FLUSH IV FLUSH PRN (22:15)
[2016-10-30 23:49] VITALS: BP 124/61; PULSE 64; RESP 18; TEMP 97.8; O2SAT 97
[2016-10-31] VITALS: PULSE 70
[2016-10-31 01:47] LABS: CREATINE KINASE 49 U/L (39-308)
[2016-10-31 03:37] VITALS: BP 119/73; PULSE 55; RESP 18; TEMP 97.8; O2SAT 98
[2016-10-31 04:00] VITALS: PULSE 53
[2016-10-31 04:26] LABS: CREATINE KINASE 43 U/L (39-308)
[2016-10-31 08:14] VITALS: BP 166/77; PULSE 69; RESP 18; TEMP 97.8; O2SAT 99
--- NOTE | 2016-10-31 08:28 | HHI.HP ---
HPI Primary Care Physician Kerri Glasgow MD Chief Complaint Chest pain History of Present Illness This is a 81-year-old male that presents to ED via [facility] with a complaint of chest discomfort. He states "I get it all the time. Almost once a day." At times he short of breath with it. He has had this evaluated in the past. Os recently at this facility had a nonischemic Lexiscan March 2016. He states the discomfort will usually last a couple seconds but the episode last night lasted about 2 minutes. He states he tries to walk a lot and does not get the discomfort while walking. No nausea or diaphoresis. Review of Systems General: Patient denies fevers, chills recent, and recent travel HEENT: Patient denies headache, sore throat, difficulty swallowing. Cardiovascular: Has the chest discomfort as mentioned above. Denies sensation of heart beating rapidly or irregularly. No syncope. Denies diaphoresis. Respiratory: He was little short of breath last night. Denies inspirational chest discomfort. Denies coughing wheezing or hemoptysis. GI: Patient denies nausea, vomiting, diarrhea, abdominal pain, bloody stools. Musculoskeletal: Patient denies joint pain or edema. Denies calf pain or edema. Neurovascular: Patient denies numbness, tingling, weakness in extremities. Denies headache. Endocrine: Denies polyuria and polydipsia. Hematologic: Denies easy bruising. Skin: Denies rash or itching. Past Family Social History Allergies: Coded Allergies: No Known Allergies (Verified , 08/22/16) Past Medical History Hypertension, diabetes, CVA denies hyperlipidemia. Denies known CAD. Past Surgical History Prostatectomy, bilateral cataracts, tonsillectomy. Reported Medications Reported Meds & Active Scripts Active Nitroglycerin SL (Nitroglycerin) 0.4 Mg Subl 0.4 Mg SL DIRECTED PRN ONE TABLET UNDER THE TONGUE NEEDED FOR CHEST PAIN, MAY REPEAT EVERY FIVE MINUTES FOR A TOTAL OF 3 DOSES OR CALL 911 IF NO RELIEF Reported Amlodipine (Amlodipine Besylate) 10 Mg Tab 10 Mg PO DAILY Metformin (Metformin HCl) 500 Mg Tab 500 Mg PO DAILY With a meal Lisinopril 40 Mg Tab 40 Mg PO DAILY Plavix (Clopidogrel Bisulfate) 75 Mg Tab 75 Mg PO DAILY Aspirin 81 Mg Chew 81 Mg CHEW DAILY Active Ordered Medications Current Medications Medications (Trade) Dose Ordered Sig/Annelise Route Start Time Stop Time Status Last Admin (NS Flush) 2 ml UNSCH PRN IVF 10/30/16 21:15 (NS Flush) 2 ml UNSCH PRN IV FLUSH 10/30/16 22:15 Family History Denies family history of CAD. Social History Patient quit smoking 2 months ago. Physical Exam Vital Signs Vital Signs Date Time Temp Pulse Resp B/P Pulse Ox O2 Delivery O2 Flow Rate FiO2 10/31/16 08:14 97.8 69 18 166/77 99 10/31/16 06:52 21 10/31/16 04:00 53 10/31/16 03:37 97.8 55 18 119/73 98 10/31/16 00:00 70 10/30/16 23:49 97.8 64 18 124/61 97 10/30/16 22:11 65 18 118/69 99 Room Air 10/30/16 21:12 99 Room Air 10/30/16 21:12 81 10/30/16 21:07 97.9 78 18 148/70 98 Physical Exam GENERAL: This is a well-nourished, well-developed patient, in no apparent distress. Patient speaks in clear complete sentences. Patient is pleasant. HEENT: Head is atraumatic and normocephalic. Neck is supple without lymphadenopathy and trachea is midline. No JVD or carotid bruits. CARDIOVASCULAR: Regular rate and rhythm without murmurs, gallops, or rubs. RESPIRATORY: Clear to auscultation. Breath sounds equal bilaterally. No wheezes , rales, or rhonchi. Chest wall is nontender. No use of accessory muscles. GASTROINTESTINAL: Abdomen is nontender, nondistended. Abdomen soft. No obvious pulsatile mass or bruit. No CVA tenderness. Strong femoral pulses bilaterally. Normal bowel sounds in all quadrants. MUSCULOSKELETAL: Patient is moving upper and lower extremities freely. No calf tenderness or edema, no Homans sign. Strong pulses in upper and lower extremities. NEUROLOGICAL: Patient is alert and oriented. Cranial nerves 2-12 are grossly intact. No focal deficits and speech is clear. SKIN: No rash and turgor is normal. Laboratory Laboratory Tests Test 10/30/16 10/31/16 10/31/16 21:06 00:00 03:12 White Blood Count 6.3 Red Blood Count 4.36 Hemoglobin 11.0 Hematocrit 33.9 Mean Corpuscular Volume 77.7 Mean Corpuscular Hemoglobin 25.2 Mean Corpuscular Hemoglobin 32.5 Concent Red Cell Distribution Width 15.1 Platelet Count 188 Mean Platelet Volume 8.7 Neutrophils (%) (Auto) 65.6 Lymphocytes (%) (Auto) 24.6 Monocytes (%) (Auto) 5.1 Eosinophils (%) (Auto) 3.8 Basophils (%) (Auto) 0.9 Neutrophils # (Auto) 4.1 Lymphocytes # (Auto) 1.5 Monocytes # (Auto) 0.3 Eosinophils # (Auto) 0.2 Basophils # (Auto) 0.1 CBC Comment DIFF FINAL Differential Comment Prothrombin Time 10.7 Prothromb Time International 1.0 Ratio Activated Partial 29.9 Thromboplast Time Sodium Level 142 Potassium Level 3.6 Chloride Level 107 Carbon Dioxide Level 25.8 Anion Gap 9 Blood Urea Nitrogen 16 Creatinine 1.02 Estimat Glomerular Filtration 70 Rate Random Glucose 211 Calcium Level 8.3 Magnesium Level 1.8 Total Bilirubin 0.2 Aspartate Amino Transf 16 (AST/SGOT) Alanine Aminotransferase 19 (ALT/SGPT) Alkaline Phosphatase 92 Total Creatine Kinase 58 49 43 Troponin I LESS THAN 0.02 LESS THAN 0.02 LESS THAN 0.02 Total Protein 6.6 Albumin 3.4 Result Diagram: 10/30/16210510/30/162105 Imaging Last 48 hours Impressions Chest X-Ray 10/30/162104 Signed Impressions: Service Date/Time: Sunday, October 30, 2016 21:07 - CONCLUSION: No evidence of acute cardiopulmonary disease. Leodan Menendez MD Course EKGs are sinus rhythm with sinus bradycardia with incomplete right bundle branch block. No significant ST segment depressions or elevations. Assessment and Plan Assessment and Plan * Chest pain: Patient's discomfort is atypical. He has been seen by Dr. Marcos De La Garza of cardiology in the chest pain center. He'll be discharged home at this time with instruction to follow-up with his primary care physician. * Hypertension: Continue current medication. * Diabetes: Continue current medication. Follow diabetic diet. He should be on a statin secondary to diabetes and should discuss this with his physician. Avery Bolanos October 31, 2016 08:28
--- NOTE | 2016-10-31 08:30 | HHI.DCPOC ---
Discharge Care Plan Diagnosis: (1) Chest pain (2) Diabetes (3) Hypertension Goals to Promote Your Health TALK WITH YOUR DOCTOR ABOUT THE IMPORTANCE OF BEING ON CHOLESTEROL MEDICATIONS BEING THAT YOU ARE DIABETIC. * To prevent worsening of your condition and complications * To maintain your health at the optimal level Directions to Meet Your Goals Take your medications as prescribed Follow your dietary instruction Follow activity as directed Keep your appointments as scheduled Take your immunizations and boosters as scheduled If your symptoms worsen call your PCP, if no PCP go to Urgent Care Center or Emergency Room Smoking is Dangerous to Your Health. Avoid second hand smoke Call the 24-hour hour crisis hotline for domestic abuse at Avery Bolanos October 31, 2016 08:30
[2016-10-31] MEDS ORDERED: metFORMIN HCL 500 MG TAB PO SCH (09:00)
[2016-10-31] MEDS ORDERED: LISINOPRIL 20 MG TAB PO SCH (09:00)
[2016-10-31] MEDS ORDERED: CLOPIDOGREL 75 MG TAB PO SCH (09:00)
--- NOTE | 2016-10-31 14:57 | EKG ---
Date Performed: 10/31/2016 Time Performed: 03:05:38 PTAGE: 81 years EKG: SINUS BRADYCARDIA WITH SINUS ARRHYTHMIA INCOMPLETE RIGHT BUNDLE BRANCH BLOCK LEFT ANTERIOR FASCICULAR BLOCK POSSIBLE ANTERIOR MYOCARDIAL INFARCTION ABNORMAL ECG PREVIOUS TRACING : 10/30/2016 23.56 Since previous tracing, no significant change noted DOCTOR: Marcos De La Garza Interpretating Date/Time 10/31/2016 14:55:06
--- NOTE | 2016-10-31 14:58 | EKG ---
Date Performed: 10/30/2016 Time Performed: 23:56:22 PTAGE: 81 years EKG: Sinus rhythm INCOMPLETE RIGHT BUNDLE BRANCH BLOCK LEFT ANTERIOR FASCICULAR BLOCK PROBABLE ANTEROSEPTAL MYOCARDIAL INFARCTION ABNORMAL ECG PREVIOUS TRACING : 08/22/2016 22.42 Since previous tracing, no significant change noted DOCTOR: Marcos De La Garza Interpretating Date/Time 10/31/2016 14:56:04
--- NOTE | 2016-10-31 14:58 | EKG ---
Date Performed: 10/30/2016 Time Performed: 21:19:25 PTAGE: 81 years EKG: Sinus rhythm INCOMPLETE RIGHT BUNDLE BRANCH BLOCK LEFT ANTERIOR FASCICULAR BLOCK MINIMAL VOLTAGE CRITERIA FOR LVH , CONSIDER NORMAL VARIANT POSSIBLE ANTEROSEPTAL MYOCARDIAL INFARCTION ABNORMAL ECG NO PREVIOUS TRACING DOCTOR: Marcos De La Garza Interpretating Date/Time 10/31/2016 14:57:05
== END 2016-10-31 10:47 | disposition home or self-care (01) ==
LOC: NEPC 20:56 → NEDA 22:09 → NEPHCDU 23:03
DX: R07.89 Other chest pain (principal); R06.02 Shortness of breath; I10 Essential (primary) hypertension; E11.9 Type 2 diabetes mellitus without complications; E78.00 Pure hypercholesterolemia, unspecified; Z86.73 Personal history of transient ischemic attack (TIA), and cerebral infarction without residual deficits; Z79.84 Long term (current) use of oral hypoglycemic drugs; Z85.51 Personal history of malignant neoplasm of bladder; Z79.82 Long term (current) use of aspirin; Z87.891 Personal history of nicotine dependence; Z79.01 Long term (current) use of anticoagulants; Z79.899 Other long term (current) drug therapy
CPT/HCPCS: 71010; 80053; 82550; 83735; 84484; 85025; 85610; 85730; 93005; 99285; G0378

== ENCOUNTER 2017-01-03 08:39 | Day surgery (SDC) | payer OTHER ==
[~2017-01-03] VITALS: Ht 167.6 cm; Wt 66.8 kg
[~2017-01-03 08:39] MED LIST changes: +AMLO10TA2 PO; -AMLO2.5T PO
[2017-01-03 09:11] VITALS: BP 165/90; PULSE 79; RESP 18; TEMP 98.1; O2SAT 100
[2017-01-03] MEDS ORDERED: SODIUM CHLOR 0.9% 1000 ML INJ 1,000 ML IV SCH (09:15)
[2017-01-03] MEDS ORDERED: ENAL20TA PO (09:27)
[2017-01-03] MEDS ORDERED: TAMS0.4C4 PO (09:27)
[2017-01-03] MEDS ORDERED: GLIP5TAB8 PO (09:27)
[2017-01-03 10:06] LABS: AUTOMATED NEUTROPHIL # 3.7 TH/MM3 (1.8-7.7); BASOPHIL % 0.9 % (0.0-2.0); EOSINOPHIL # 0.2 TH/MM3 (0-0.4); HEMO FLAGS DIFF FINAL; LYMPH % 20.9 % (9.0-44.0); LYMPHOCYTE # 1.1 TH/MM3 (1.0-4.8); MEAN CELL VOLUME 79.7 FL (80.0-100.0); MEAN CORPUSCULAR HEMOGLOBIN 26.6 PG (27.0-34.0); MEAN CORPUSCULAR HGB CONC 33.4 % (32.0-36.0); MONO % 5.1 % (0.0-8.0); NEUT % 69.1 % (16.0-70.0); PLATELET COUNT 188 TH/MM3 (150-450); RED BLOOD COUNT 4.64 MIL/MM3 (4.50-5.90); RED CELL DISTRIBUTION WIDTH 14.6 % (11.6-17.2); WHITE BLOOD COUNT 5.4 TH/MM3 (4.0-11.0)
[2017-01-03 10:11] LABS: BICARBONATE 29.3 MEQ/L (21.0-32.0)
[2017-01-03 10:15] LABS: INTERNATIONAL NORMALIZED RATIO 0.9 RATIO; PROTHROMBIN TIME - PATIENT 10.4 SEC (9.8-11.6)
[2017-01-03] MEDS ORDERED: HEPARIN-NS/PF INJ 500 ML ONE (10:55)
[2017-01-03] MEDS ORDERED: MIDAZOLAM HCL 2 MG/2 ML VIAL ONE (10:55)
[2017-01-03] MEDS ORDERED: VERAPAMIL HCL 5 MG/2 ML VIAL ONE (11:03)
[2017-01-03] MEDS ORDERED: NITROGLYCERIN INJ 5 ML ONE (11:03)
[2017-01-03] MEDS ORDERED: HEPARIN SODIUM - IV 10,000 UNITS/10 ML VIAL ONE (11:03)
--- NOTE | 2017-01-03 11:40 | CATHPROC ---
[facility] HIS Report Study Information Study Number Admission Scheduled Start Study Start [id number] Jan 03 2017 8:39AM 01/03/2017 Jan 03 2017 10:48AM [place] Service Cardiac Catheterization Admit Source Facility Department Other [facility] - Operating Room Surgical Technician Physician and Clinical Staff Initial Rick Lockwood Technician Biological Healthjanine Villavicencio RN, Zaki Technician Biological HealthSanchez Bernardo,ANN MARIE Recorder Abdoulaye Campoverde,RT(R) Scrub [place] Manley,ERI TECH2 Procedures Performed Procedure Location (Site) Vessel Name Coronary Angiograms LCA Left Coronary Coronary Angiograms RCA Right Coronary L Heart Cath Equipment Time Military Professional Description Size Mfg Part Number Used/Scraped TRANSDUCER, TRUWAVE [id number] 10:49 GALVEZ PATRICIA * Used W/STOCKCOCK *[id number] *[id number] *[id number] 10:49 babberly [employer] PACK, CCL CUSTOM * Used *[id number] BAND, RADIAL COMPRESSION TR [id number] 11:27 [employer] MEDICAL 24CM Used SHORT 24 *[id number] 10:49 [employer] SHEATH, FR5.5 PRELUDE 11CM FR 5 [id number] Used [id number] 10:49 [employer] WIRE, 3MMJ .035 180CM 180CM Used *[id number] 10:49 [employer]AMIC MANIFOLD, 4 PORT * Used *[id number] 10:49 [employer] OMNIPAQUE, 350 MG, 150ML 150ML [id number] Used [id number] 10:49 [employer] BLANKET,WARM AIR CCL * Used *[id number] History: Current Medications Medication Dosage/Unit Route Frequency Last Date/Time Taken ASA PLAVIX LISINOPRIL Glucophage NTG SL Glypizide VASOTEC History: Allergies Allergy Reaction No Known Allergies History: Risk Factors Family History of Hypertension Dyslipidemia Previous [place] Previous Heart Failure Premature CAD Yes Yes Yes No No Prior Valve Prior PCI Prior CABG Surgery No No No Cerebrovascular Peripheral Artery Chronic Lung On Dialysis Diabetes Diabetes Therapy Disease Disease Disease No Yes Yes Yes Yes Oral History: Symptoms/Diagnosis Selection Items Chest pain History: Stress Tests Stress or Imaging Studies Performed Yes Standard Exercise Stress Test No Stress Echo No Stress Test SPECT Stress Test SPECT Result Stress Test SPECT Ischemia Risk/Extent Yes Positive Low Stress Test CMR No Cardiac CTA Coronary Calcium Score No No History: Other Disease Selection Items Cancer COPD HTN History: Other Current Smoker Method Quit Packs a Day Years Used Pack Years No Cigarettes 5 Years Ago 2 55 110 Labs Hgb (g/dl) Hct (%) RBC (MIL/MM3) WBC (l/cumm) Platelets (thousands) 11.60-17.00 35.00-51.00 4.00-5.90 4.00-11.00 150.00-450.00 12.4 37 4.6 5.4 188 Glucose (mg/dl) BUN (mg/dl) Creatinine (mg/dl) BUN:Creatinine (1:x) 74.00-106.00 7.00-18.00 0.50-1.30 10.00-20.00 141 20 1.0 20 Na (meq/l) K (meq/l) Cl (meq/l) CO2 (mmol/L) Ca (mg/dl) 136.00-145.00 3.50-5.10 98.00-107.00 21.00-32.00 8.50-10.10 141 4 106 29.3 8.9 PT (sec) PTT (sec) INR (PTT:PT) 9.80-11.60 24.30-30.10 0.90-1.10 10.4 31 0.9 CPK-MB (ng/ML) 0.50-3.60 Not Drawn Medication Medication Total Dose (Bolus/Oral) Medication Total Dosage/Unit 1% XYLOCAINE 5 mL FENTANYL 25 mcg RADIAL COCKTAIL 5 mL (Bolus) VERSED 0.5 mg Medications (Bolus/Oral) Medication Time Given Dosage/Unit Administered By Reason FENTANYL 01/03/2017 11:11:49 AM 25 mcg Zaki Villavicencio RN 25 mcg FENTANYL given in lab by Zaki Villavicencio RN in Left Antecubital via Peripheral IV. VERSED 01/03/2017 11:11:50 AM 0.5 mg Zaki Villavicencio RN 0.5 mg VERSED given in lab by Zaki Villavicencio RN in Left Antecubital via Peripheral IV. 1% XYLOCAINE 01/03/2017 11:12:49 AM 5 mL Rick Jacques 5 mL 1% XYLOCAINE given in lab by Rick Jacques in Right Radial via Subcutaneous. Ntg 200mcg Verapamil 2.5mg Heparin RADIAL COCKTAIL 01/03/2017 11:15:22 AM 5 mL (Bolus) Rick Jacques 2500U 5 mL (Bolus) RADIAL COCKTAIL given in lab by Rick Jacques via Radial. Using [Solution Name]. Ord ered by Rick Jacques. Reason: Ntg 200mcg Verapamil 2.5mg Heparin 2700U. Medication (Drip) Medication Time Given Dosage/Unit Concentration/Unit Diluent (ml) Solution IV Solutions 01/03/2017 10:49:27 AM 0 mL (IV) 500 NaCl .9 IV Solutions given in lab by Zaki Villavicencio RN in Left Antecubital via Peripheral IV. Pump/Drip Flow = 200 ml/hr using NaCl .9. Initial Case Assessment Cardiovascular HR Rhythm NIBP Chest Pain 83 Sinus 190/108 0 Edema Present Skin color Skin None Normal Warm Dry Circulatory - Right Pulses Dorsalis Pedis Femoral Radial 2 2 2 Scale (0,1,2,3,4,d) Scale (0,1,2,3,4,d) Neurological State Oriented to time-place- Alert Moves all extremities person Respiration - General Respiration Rate SpO2 (%) O2 (lpm) (B/min) 8 99 0 Final Case Assessment Cardiovascular HR Rhythm NIBP Chest Pain 78 Sinus 150/81 0 Edema Present Skin color Skin None Normal Warm Dry Circulatory - Right Pulses Dorsalis Pedis Femoral Radial 2 2 2 Scale (0,1,2,3,4,d) Scale (0,1,2,3,4,d) Neurological State Oriented to time-place- Alert Moves all extremities person Respiration - General Respiration Rate SpO2 (%) O2 (lpm) (B/min) 19 97 0 Chronological Log Time Study Chronological Log 10:45:57 Patient arrived via Bed. 10:48:04 Patient Name, D.O.B, / Armband Verified By R.N. 10:48:06 Consent signed by the physician and the patient and verified by the Operating Room Surgical Technician staff. 10:48:07 Pre-op and post- op instructions given; patient acknowledges understanding of instructions. 10:48:08 Verbal Stimulation=2 Physical Stimulation=2 Airway=2 Respiration=2 TOTAL=8. (0=absent, 1=li mited, 2=present) 10:49:00 Presedation assessment performed by Operating Room Surgical Technician RN. 10:49:01 Allens test performed on the right radial and ulnar artery. 10:49:14 Patient has been NPO for More than 6Hrs. 10:49:15 Skin Breakdown- 10:49:24 Stephen Prominences Protected 10:49:26 A # 20 IV was noted in the Antecubital (left). Grade = 0 IV Solutions given in lab by Zaki Villavicencio RN in Left Antecubital via Peripheral IV. Pump/Drip F low = 200 ml/hr using 10:49:27 NaCl .9. 10:49:28 History and physical on the chart or being dictated. Assessment: Initial Case, HR=83 BPM, Rhythm=Sinus, YDJR=104/108 mmhg, Chest Pain=0, Edema=None, Color=Normal, Skin = Warm, Dry 10:49:29 Right Pulses: Pierre Ped=2, Femoral=2, Radial=2 Neurological: State=Alert, Ox3, SCHULZ Respiration: Resp=8 B/min, SpO2=99 %, O2=0 lpm Vitals capture started with the following parameters, Patient=Adult, Interval=5 min, Initial Pr bkujnd=335 mmHg, 10:49:30 Deflation Rate=5 mmHg 10:50:45 UJQQ=788/108 mmhg, SpO2=97.0 %, Pain=0, Yon=10, Vogel=2 10:55:11 HR=82 bpm, RYXH=597/104 mmhg, ZrV9=329.0 %, Resp=7 B/min, Pain=0, Yon=10, Vogel=2 11:00:08 MD arrived. 11:00:10 HR=82 bpm, HDDC=271/97 mmhg, SpO2=99.0 %, Resp=17 B/min, Pain=0, Yon=10, Vogel=2 11:03:51 Right Radial and groin(s) prepped with 2% chlorhexidine, and with a 3 min. waiting time. 11:05:07 HR=92 bpm, HZHQ=072/100 mmhg, SpO2=99.0 %, Resp=16 B/min, Pain=0, Yon=10, Vogel=2 11:08:01 Pressure channel 1 zeroed. 11:10:14 HR=83 bpm, MYYG=241/109 mmhg, SpO2=99.0 %, Resp=19 B/min, Pain=0, Yon=10, Vogel=2 Time Out. Correct patient, correct procedure,correct physician, power injector not loaded with contrast with surgical 11:10:50 team present. Time Out Concurred by , individual staff in procedure 11:11:38 Case Start 11:11:49 25 mcg FENTANYL given in lab by Zaki Villavicencio RN in Left Antecubital via Peripheral IV. 11:11:50 0.5 mg VERSED given in lab by Zaki Villavicencio RN in Left Antecubital via Peripheral IV. 11:12:49 5 mL 1% XYLOCAINE given in lab by Rick Jacques in Right Radial via Subcutaneous. 11:14:57 Access site was Radial Artery. 11:15:05 A SHEATH, FR5.5 PRELUDE 11CM FR 5 was advanced into the Radial (right) using the [place]ut[place]o us technique. 11:15:09 HR=76 bpm, SHMR=019/87 mmhg, SpO2=97.0 %, Resp=14 B/min, Pain=0, Yon=10, Vogel=2 5 mL (Bolus) RADIAL COCKTAIL given in lab by Rick Jacques via Radial. Using [Solution Name ]. Ordered by 11:15:22 Rick Jacques. Reason: Ntg 200mcg Verapamil 2.5mg Heparin 2700U. A JR 4.0 INFINITI CATHETER FR 5 was advanced over a wire. OMNIPAQUE, 350 MG, 150ML 150ML was us ed for 11:16:02 injections. Recorded Pressure: LV, HR=78, Condition=Condition 1 11:17:05 (Left Ventricle) LV 113/0/2 Recorded Pressure: LV, Ao, HR=74, Condition=Condition 1 11:17:21 (Left Ventricle) LV 111/-1/1, (Aorta) Ao 103/55/73 Recorded Pressure: Ao, HR=75, Condition=Condition 1 11:17:54 (Aorta) Ao 97/53/74 11:18:52 The RCA was injected and visualized at various angles. OMNIPAQUE, 350 MG, 150ML 150ML used . After removing the current catheter a JL 3.5 INFINITI CATHETER FR 5 was advanced over a WIRE, 3MMJ .035 180CM 11:19:42 180CM. 11:20:12 HR=72 bpm, KWBU=705/66 mmhg, SpO2=94.0 %, Resp=15 B/min, Pain=0, Yon=10, Vogel=2 11:23:07 The LCA was injected and visualized at various angles. OMNIPAQUE, 350 MG, 150ML 150ML use d. 11:25:46 HR=74 bpm, ZJBU=739/78 mmhg, SpO2=94.0 %, Resp=15 B/min, Pain=0, Yon=10, Vogel=2 11:27:18 Catheter was removed Radial Compression Device Used. 10 mLs of air placed in BAND, RADIAL COMPRESSION TR SHORT 24 2 4CM. Affected 11:29:02 hand 97 % O2 saturation. 11:29:27 Case End Assessment: Final Case, HR=78 BPM, Rhythm=Sinus, FTVK=103/81 mmhg, Chest Pain=0, Edema=None, Color=Normal, Skin = Warm, Dry 11:29:28 Right Pulses: Pierre Ped=2, Femoral=2, Radial=2 Neurological: State=Alert, Ox3, SCHULZ Respiration: Resp=19 B/min, SpO2=97 %, O2=0 lpm 11:29:58 Reference ECG taken 11:30:08 HR=82 bpm, MTNC=002/81 mmhg, SpO2=97.0 %, Resp=12 B/min, Pain=0, Yon=10, Vogel=2 11:30:59 No case complications noted. 11:31:02 Cine recording checked. 11:31:51 Bedside Report will be given. 11:31:56 A Left Heart Cath was performed. 11:35:03 INJS=878/89 mmhg, SpO2=96.0 %, Pain=0, Yon=10, Vogel=2 11:38:16 Patient moved to stretcher 11:38:19 Vitals capture stopped. End Study - Contrast Media Used In Study Contrast Total Opened (mL) Total Used (mL) Total Wasted (mL) Omnipaque 35 35 0 End Study - Maximum Contrast Load Max Contrast Load (mL) 334.1 End Study - Radiation Exposure Fluoro Time (minutes) 3.6 End Study - Patient Disposition Complications Transferred To Interventional Outcome No Outpatient Bed No attempt made
[2017-01-03] MEDS ORDERED: METF500T PO (11:50)
--- NOTE | 2017-01-03 11:52 | HHI.DS ---
Discharge Summary Admission Date 01/03/17 Discharge Date: Jan 03, 2017 Admitting Diagnosis Chest pain (1) Chest pain Diagnosis: Principal (2) Hypertension Diagnosis: Secondary (3) Diabetes Diagnosis: Secondary Procedures [facility] with mild CAD CBC/BMP: 01/03/17 0900 01/03/17 0900 Significant Findings Laboratory Tests Test 01/03/17 09:00 Hemoglobin 12.4 GM/DL (13.0-17.0) Hematocrit 37.0 % (39.0-51.0) Mean Corpuscular Volume 79.7 FL (80.0-100.0) Mean Corpuscular Hemoglobin 26.6 PG (27.0-34.0) Activated Partial 31.0 SEC Thromboplast Time (24.3-30.1) Blood Urea Nitrogen 20 MG/DL (7-18) Estimat Glomerular Filtration 65 ML/MIN (>89) Rate Random Glucose 141 MG/DL (74-106) Pt Condition on Discharge: Good Discharge Disposition: Discharge Home Discharge Instructions DIET: Follow Instructions for: Heart Healthy Diet Activities you can perform: See Additionl Instruction Additional Activity Instructio: No lifting more than 10 lbs for 3 days with right arm Rick Jacques DO Jan 03, 2017 11:52
[2017-01-03] MEDS ORDERED: MISC INFORMATION XX ONE (12:00)
--- NOTE | 2017-01-03 13:09 | MA ---
cc: RICK RODRIGUEZ DO DATE 01/03/2017 PROCEDURE Left heart catheterization, coronary angiogram, moderate sedation 15 minutes. PREPROCEDURE DIAGNOSIS Chest pain POSTPROCEDURE DIAGNOSIS Mild coronary artery disease by cardiac catheterization, significant tortuosity due to prolonged hypertension. MEDICATIONS 1. Versed 0.5 mg 2. Fentanyl 25 mcg 3. Nitro 200 mcg 4. Verapamil 2.5 mg 5. Heparin 2700 units CONTRAST 35 cc FLUOROSCOPY 3.6 minutes ANESTHESIA Moderate sedation 15 minutes ESTIMATED BLOOD LOSS 10 cc PROCEDURAL SUMMARY Ernie Elliott is a pleasant 81-year-old male who sees Dr. Quigley in the outpatient office and had a nuclear done which was negative in March 2016. The patient continued to have chest pain that was concerning for coronary insufficiency and so he was recommended cardiac catheterization after being placed on antianginal medications. Risks, benefits and alternatives were explained to him and he consented as such. He was brought to the lab and prepped in the usual sterile fashion. The right radial artery was accessed using a modified Seldinger technique and placement of a 5/6 [place] sheath. This was easily aspirated and flushed. A JR-4 was advanced over a J-wire to the ascending aorta and across the aortic valve for measurement of left ventricular pressure. This was pulled back across the aortic valve showing no significant gradient of aortic stenosis. JR-4 was used for selective angiography of the right coronary system. This was exchanged out for a JL-3.5 which was used for selective angiography of the left coronary system. The JL-3.5 was removed over a J-wire. A radial band was placed over the arteriotomy site for hemostasis. 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 FINDINGS Left main. Overall short vessel with no significant disease. Adequate reflux. It bifurcates into an LAD and circumflex. LAD is a normal-sized vessel with significant tortuosity throughout. The proximal and midportion have each a smooth 30% lesion, but no significant disease. It gives off one major diagonal branch with no significant disease. Left circumflex is a large vessel which is dominant. There is no significant disease throughout it or the obtuse marginales. It does give off three obtuse marginales and a PDA which overall have no significant disease, but are severely tortuous. RCA is a nondominant vessel with 10% disease. LVEDP 2. IMPRESSION 1. Chest pain most likely noncoronary in nature. 2. Extensive hypertension with significant tortuosity of his coronary vessels. 3. Mild coronary artery disease by cardiac catheterization. RECOMMENDATIONS 1. Mr. Elliott appears to have mild coronary artery disease by cardiac catheterization and he will continue on medical management of his coronary artery disease. He does not appear to have any lesions that are causing him his chest pain and nothing that is able to be intervened at this time. time. 2. He does have significant tortuosity showing that he has probably had excessive hypertension for some time. He did not take his medicines this morning, but his blood pressure was 200/100. He will follow up with Dr. Quigley for further consideration of blood pressure management. 3. He will be discharged today. Thank you for allowing me to see Ernie Elliott. If there are any questions, please do not hesitate to call. Rick Rodriguez DO VGP/DJL /11:45 AM /1:04 PM
[2017-01-03] MEDS ORDERED: IOHEXOL 350 MG/ML 50 ML BTL (for Cath Lab) OTHER ONE (14:16)
--- NOTE | 2017-01-04 10:01 | EKG ---
Date Performed: 01/03/2017 Time Performed: 09:17:38 PTAGE: 81 years EKG: Sinus rhythm . Left anterior fascicular block Septal T wave changes are nonspecific Borderline ECG Since PREVIOUS TRACING , no significant change noted PREVIOUS TRACIN10/31/2016 03.05 DOCTOR: Benoit Hope Interpretating Date/Time 01/04/2017 09:59:55
== END 2017-01-03 14:58 | disposition home or self-care (01) ==
LOC: HDOC 08:39 → HDIC 08:40 → HDOC 14:58
PROVIDERS: ATTEND Nuclear Medicine Nuclear Cardiology
DX: I25.10 Atherosclerotic heart disease of native coronary artery without angina pectoris (principal); I10 Essential (primary) hypertension; E11.9 Type 2 diabetes mellitus without complications
CPT/HCPCS: 80048; 85025; 85610; 85730; 93005; 93458; C1769; C1893; J1644; J2250; J3010; Q9967

== ENCOUNTER 2017-04-25 15:00 | Inpatient (IN) | payer OTHER, MEDICARE ==
[~2017-04-25] VITALS: Ht 167.6 cm; Wt 65.5 kg
[~2017-04-25 15:00] MED LIST changes: +ASPI-516 CHEW; -ASPI81CH CHEW; +ENAL20TA PO; +GLIP5TAB8 PO; +TAMS0.4C4 PO
[2017-04-25 15:23] VITALS: BP 208/78; PULSE 89; RESP 16; TEMP 97.5; O2SAT 98
[2017-04-25 15:27] VITALS: O2SAT 100
[2017-04-25] MEDS ORDERED: SODIUM CHLORIDE 0.9% FLUSH 5 ML FLUSH IV FLUSH PRN ×2 (15:30→18:00)
--- NOTE | 2017-04-25 15:39 | PD ---
HPI Chief Complaint: Dizziness Time Seen by Provider: 15:18 Travel History International Travel<30 days: No Contact w/Intl Traveler<30days: No Traveled to known affect area: No History of Present Illness HPI 81-year-old male presents with 2 day history of unsteady gait and dizziness. His states today when she got home from picking up kids at school he was acting even more altered that he is but over the past couple of days as he had slurred speech. The patient denies any pain or other complaints he is a poor historian and his supplements history. History is still limited with this. He denies other specific complaints that. PFSH Past Medical History Narrative Medical By records Hx Anticoagulant Therapy: Yes Arthritis: No Asthma: No Autoimmune Disease: No Blood Disorders: No Heart Rhythm Problems: No Cancer: Yes (BLADDER CANCER) Cardiac Catheterization: No Cardiovascular Problems: Yes High Cholesterol: Yes Chemotherapy: No Chest Pain: Yes Congestive Heart Failure: No COPD: No Cerebrovascular Accident: Yes Diabetes: Yes Patient Takes Glucophage: Yes Diminished Hearing: Yes (Bilateral [place]) Endocrine: Yes Gastrointestinal Disorders: No GERD: No Genitourinary: No Headaches: Yes Hiatal Hernia: No Hypertension: Yes Immune Disorder: No Implanted Vascular Access Dvce: Yes Kidney Stones: No Medical other: Yes (H/O CHI WITH NEURO DEFICITS) Musculoskeletal: No Neurologic: Yes Psychiatric: No Reproductive: No Respiratory: No Immunizations Current: Yes Migraines: No Radiation Therapy: No Renal Failure: No Seizures: No Sickle Cell Disease: No Sleep Apnea: No Thyroid Disease: No Ulcer: No Tetanus Vaccination: < 5 Years Influenza Vaccination: Yes Past Surgical History Narrative Surgical By records Abdominal Surgery: No AICD: No Arteriovenous Shunt: No Body Medical Devices: URINARY CATH WITH LEG BAG Cardiac Surgery: No Coronary Artery Bypass Graft: No Ear Surgery: No Endocrine Surgery: No Eye Surgery: Yes (BL CATARACT) Genitourinary Surgery: Yes (PROSTATECTOMY) Gynecologic Surgery: No Insulin Pump: No Joint Replacement: No Neurologic Surgery: No Oral Surgery: Yes (TONSILLECTOMY) Pacemaker: No Prostatectomy: Yes Thoracic Surgery: No Tonsillectomy: Yes Other Surgery: Yes (TONSILLECTOMY, BL CATARACT SURGERY) Social History Alcohol Use: No (QUIT) Tobacco Use: No Substance Use: No Allergies-Medications (Allergen,Severity, Reaction): Coded Allergies: No Known Allergies (Verified Adverse Reaction, Unknown, 04/25/17) Reported Meds & Prescriptions Reported Meds & Active Scripts Active Metformin (Metformin HCl) 500 Mg Tab 500 Mg PO DAILY With a meal Nitroglycerin SL (Nitroglycerin) 0.4 Mg Subl 0.4 Mg SL DIRECTED PRN ONE TABLET UNDER THE TONGUE NEEDED FOR CHEST PAIN, MAY REPEAT EVERY FIVE MINUTES FOR A TOTAL OF 3 DOSES OR CALL 911 IF NO RELIEF Reported Enalapril (Enalapril Maleate) 20 Mg Tab 20 Mg PO DAILY Glipizide 5 Mg Tab 5 Mg PO DAILY Take 30 minutes before a meal Tamsulosin (Tamsulosin HCl) 0.4 Mg Cap 0.4 Mg PO HS Amlodipine (Amlodipine Besylate) 10 Mg Tab 10 Mg PO DAILY Lisinopril 40 Mg Tab 40 Mg PO DAILY Plavix (Clopidogrel Bisulfate) 75 Mg Tab 75 Mg PO DAILY Aspirin 81 Mg Chew 81 Mg CHEW DAILY Review of Systems Except as stated in HPI: all other systems reviewed are Neg Physical Exam Narrative GENERAL: Well-nourished, well-developed patient. SKIN: Warm and dry. HEAD: Normocephalic and atraumatic. EYES: No injection or drainage. Pupils are asymmetric on review of records chronic, right is irregular shaped ENT: No nasal drainage noted. NECK: Supple, trachea midline. CARDIOVASCULAR: Regular rate and rhythm RESPIRATORY: Breath sounds equal bilaterally. No accessory muscle use. GASTROINTESTINAL: Abdomen soft, non-tender, nondistended. EXTREMITIES: No edema. NEUROLOGICAL: Awake and alert to name, place, states he typically doesn't know the date but can't state that it is Monday. Motor and sensory grossly within normal limits. Slurred speech. Data Data Last Documented VS Vital Signs Date Time Temp Pulse Resp B/P (MAP) Pulse Ox O2 Delivery O2 Flow Rate FiO2 04/25/17 17:32 80 16 156/86 (109) 96 Room Air 04/25/17 15:23 97.5 Orders Orders Magnesium (Mg) (04/25/17:23) Phosphorus (Po4) (04/25/17 15:23) Complete Blood Count With Diff (04/25/17:) Comprehensive Metabolic Panel (04/25/17:) Ckmb (Isoenzyme) Profile (04/25/17:) Troponin I (11/14/17 15:23) Urinalysis - C+S If Indicated (04/25/17 15:23) Act Partial Throm Time (Ptt) (04/25/17 15:23) Prothrombin Time / Inr (Pt) (04/25/17 15:23) Ct Brain W/O Iv Contrast(Rout) (04/25/17 ) Chest, Single Ap (04/25/17 ) Electrocardiogram (04/25/17 ) Iv Access Insert/Monitor (04/25/17 15:23) Ecg Monitoring (04/25/17 15:23) Oximetry (04/25/17 15:23) Blood Glucose (04/25/17 15:23) Sodium Chloride 0.9% Flush (Ns Flush) (04/25/17 15:30) Drug Screen, Random Urine (04/25/17 15:23) Alcohol (Ethanol) (04/25/17 15:23) CKMB (04/25/17 15:15) CKMB% (04/25/17 15:15) Aspirin (Aspirin) (04/25/17 16:45) Nursing Bedside Swallow Assess .ONCE (04/25/17 16:35) Urine Culture (04/25/17 16:15) Admit Order (Ed Use Only) (04/25/17 17:35) Labs Laboratory Tests Test 04/25/17 15:15 04/25/17 16:15 White Blood Count 5.4 TH/MM3 Red Blood Count 4.64 MIL/MM3 Hemoglobin 12.1 GM/DL Hematocrit 36.9 % Mean Corpuscular Volume 79.6 FL Mean Corpuscular Hemoglobin 26.0 PG Mean Corpuscular Hemoglobin Concent 32.7 % Red Cell Distribution Width 13.7 % Platelet Count 192 TH/MM3 Mean Platelet Volume 8.4 FL Neutrophils (%) (Auto) 74.0 % Lymphocytes (%) (Auto) 18.3 % Monocytes (%) (Auto) 4.0 % Eosinophils (%) (Auto) 3.4 % Basophils (%) (Auto) 0.3 % Neutrophils # (Auto) 3.9 TH/MM3 Lymphocytes # (Auto) 1.0 TH/MM3 Monocytes # (Auto) 0.2 TH/MM3 Eosinophils # (Auto) 0.2 TH/MM3 Basophils # (Auto) 0.0 TH/MM3 CBC Comment DIFF FINAL Differential Comment Prothrombin Time 10.7 SEC Prothromb Time International Ratio 1.0 RATIO Activated Partial Thromboplast Time 31.3 SEC Blood Urea Nitrogen 14 MG/DL Creatinine 0.87 MG/DL Random Glucose 194 MG/DL Total Protein 7.3 GM/DL Albumin 3.8 GM/DL Calcium Level 8.0 MG/DL Phosphorus Level 2.2 MG/DL Magnesium Level 1.8 MG/DL Alkaline Phosphatase 107 U/L Aspartate Amino Transf (AST/SGOT) 15 U/L Alanine Aminotransferase (ALT/SGPT) 21 U/L Total Bilirubin 0.4 MG/DL Sodium Level 140 MEQ/L Potassium Level 4.0 MEQ/L Chloride Level 104 MEQ/L Carbon Dioxide Level 29.1 MEQ/L Anion Gap 7 MEQ/L Estimat Glomerular Filtration Rate 84 ML/MIN Total Creatine Kinase 101 U/L Creatine Kinase MB 3.6 NG/ML Troponin I LESS THAN 0.02 NG/ML Ethyl Alcohol Level LESS THAN 3 MG/DL Urine Color YELLOW Urine Turbidity CLEAR Urine pH 6.0 Urine Specific [place] 1.015 Urine Protein NEG mg/dL Urine Glucose (UA) 1000 OR GREATER mg/dL Urine Ketones NEG mg/dL Urine Occult Blood NEG Urine Nitrite NEG Urine Bilirubin NEG Urine Leukocyte Esterase TRACE Urine RBC 0-3 /hpf Urine WBC 15-19 /hpf Urine Squamous Epithelial Cells 0-5 /hpf Microscopic Urinalysis Comment CULTURE INDICATED Urine Opiates Screen NEG Urine Barbiturates Screen NEG Urine Amphetamines Screen NEG Urine Benzodiazepines Screen NEG Urine Cocaine Screen NEG Urine Cannabinoids Screen NEG MDM Medical Decision Making Medical Screen Exam Complete: Yes Emergency Medical Condition: Yes Medical Record Reviewed: Yes (pmh confirmed) Interpretation(s) CBC & BMP Diagram 04/25/17 15:15 Total Protein 7.3, Albumin 3.8, Calcium Level 8.0 L, Phosphorus Level 2.2 L, Magnesium Level 1.8, Alkaline Phosphatase 107, Aspartate Amino Transf (AST/SGOT ) 15, Alanine Aminotransferase (ALT/SGPT) 21, Total Bilirubin 0.4 Last [address] 04/25/17 0000 Signed Impressions: Service Date/Time: Tuesday, April 25, 2017 16:17 - CONCLUSION: 1. No acute intracranial abnormality. 2. Chronic small vessel ischemic change. Hansel Eubanks Jr., MD Chest X-Ray 04/25/17 0000 Signed Impressions: Service Date/Time: Tuesday, April 25, 2017 16:03 - CONCLUSION: No acute cardiopulmonary abnormality is identified. Leodan Valente MD Differential Diagnosis TIA, mass, bleed, hypokalemia, hyponatremia, UTI Narrative Course Will check blood work, CT brain, urinalysis and monitor Patient states he forgot to say earlier he's been tingly on his left side. He denies other concurrent complaints. He states he also forgot to take his blood pressure medications today. He agrees to admission. Will dose with aspirin Physician Communication Physician Communication dr newby agrees to admit Diagnosis Primary Impression: Unsteady gait Additional Impressions: Altered mental status Qualified Codes: R41.82 - Altered mental status, unspecified Accelerated hypertension Admitting Information Admitting Physician Requests: Jennie Kothari MD Apr 25, 2017 15:39
[2017-04-25 15:55] LABS: AUTOMATED NEUTROPHIL # 3.9 TH/MM3 (1.8-7.7); BASOPHIL % 0.3 % (0.0-2.0); EOSINOPHIL # 0.2 TH/MM3 (0-0.4); EOSINOPHIL % 3.4 % (0.0-4.0); HEMATOCRIT 36.9 % (39.0-51.0); HEMO FLAGS DIFF FINAL; LYMPH % 18.3 % (9.0-44.0); MEAN CELL VOLUME 79.6 FL (80.0-100.0); MEAN CORPUSCULAR HGB CONC 32.7 % (32.0-36.0); PLATELET COUNT 192 TH/MM3 (150-450); RED BLOOD COUNT 4.64 MIL/MM3 (4.50-5.90); RED CELL DISTRIBUTION WIDTH 13.7 % (11.6-17.2); WHITE BLOOD COUNT 5.4 TH/MM3 (4.0-11.0)
[2017-04-25 16:04] LABS: CHLORIDE 104 MEQ/L (98-107); SODIUM (NA) 140 MEQ/L (136-145)
[2017-04-25 16:08] LABS: ANION GAP 7 MEQ/L (5-15); APTT (PATIENT) 31.3 SEC (24.3-30.1); BICARBONATE 29.1 MEQ/L (21.0-32.0); BLOOD UREA NITROGEN 14 MG/DL (7-18); MAGNESIUM 1.8 MG/DL (1.5-2.5); PROTHROMBIN TIME - PATIENT 10.7 SEC (9.8-11.6)
[2017-04-25 16:10] LABS: ALT (GPT) 21 U/L (12-78)
[2017-04-25 16:11] LABS: AST (GOT) 15 U/L (15-37); GLOMERULAR FILTRATION RATE 84 ML/MIN (>89)
[2017-04-25 16:12] LABS: TOTAL BILIRUBIN ADULT 0.4 MG/DL (0.2-1.0)
[2017-04-25 16:13] LABS: ALKALINE PHOSPHATASE 107 U/L (45-117); CREATINE KINASE 101 U/L (39-308)
--- NOTE | 2017-04-25 16:20 | RADRPT ---
EXAM DATE/TIME: 04/25/2017 16:03 [facility] COMPARISON: CHEST SINGLE AP, October 30, 2016, 21:07. INDICATIONS : Chest palpitations for a few days. MEDICAL HISTORY : Cardiovascular disease. Cerebrovascular disease. Hypertension. Bladder cancer. SURGICAL HISTORY : None. ENCOUNTER: Initial ACUITY: 3 days PAIN SCORE: 3/10 LOCATION: Bilateral chest FINDINGS: Portable AP view of the chest demonstrates a normal-sized cardiac silhouette. No effusion, consolidat ion, or pneumothorax is visualized. The bones and soft tissues demonstrate no acute abnormality. CONCLUSION: No acute cardiopulmonary abnormality is identified. Leodan Valente MD on April 25, 2017 at 16:16 Board Certified Radiologist. This report was verified electronically.
[2017-04-25 16:24] LABS: ALCOHOL LESS THAN 3 MG/DL (0-5)
[2017-04-25 16:32] LABS: BLOOD, URINE NEG (NEG); GLUCOSE,URINE 1000 OR GREATER mg/dL (NEG); KETONE, URINE NEG (NEG); NITRITE,URINE NEG (NEG)
--- NOTE | 2017-04-25 16:33 | RADRPT ---
EXAM DATE/TIME: 04/25/2017 16:17 [facility] COMPARISON: CT BRAIN W/O CONTRAST, April 02, 2016, 16:50. INDICATIONS : Dizziness and confusion. RADIATION DOSE: 60.33 CTDIvol (mGy) MEDICAL HISTORY : Cerebrovascular disease. Hypertension. Carcinoma, bladder.Anticoagulant therapy. SURGICAL HISTORY : Tonsillectomy. ENCOUNTER: Initial ACUITY: 2 days PAIN SCALE: 0/10 LOCATION: cranial TECHNIQUE: Multiple contiguous axial images were obtained of the head. Using automated exposure control and adj ustment of the mA and/or kV according to patient size, radiation dose was kept as low as reasonably a chievable to obtain optimal diagnostic quality images. DICOM format image data is available electro nically for review and comparison. FINDINGS: CEREBRUM: Periventricular low attenuation change involving both cerebral hemispheres. The ventricles are normal for age. No evidence of midline shift, mass lesion, hemorrhage or acute infarction. No extra-axial fluid collections are seen. POSTERIOR FOSSA: The cerebellum and brainstem are intact. The 4th ventricle is midline. The cerebellopontine angle i s unremarkable. EXTRACRANIAL: The visualized portion of the orbits is intact. SKULL: The calvaria is intact. No evidence of skull fracture. CONCLUSION: 1. No acute intracranial abnormality. 2. Chronic small vessel ischemic change. Hansel Eubanks Jr., MD on April 25, 2017 at 16:28 Board Certified Radiologist. This report was verified electronically.
[2017-04-25 16:36] LABS: CKMB 3.6 NG/ML (0.5-3.6)
[2017-04-25] MEDS ORDERED: ASPIRIN 325 MG TAB PO ONE (16:45)
[2017-04-25 17:10] LABS: RBC, URINE 0-3 /hpf (0-3); SQUAMOUS EPITHELIAL CELL URINE 0-5 /hpf (0-5); URINE COLOR YELLOW (YELLW/STRAW); WBC, URINE 15-19 /hpf (0-5)
[2017-04-25 17:11] LABS: COMMENT (UR) CULTURE INDICATED; CULTURE IF INDICATED CULTURE INDICATED
[2017-04-25 17:32] VITALS: BP 156/86; PULSE 80; RESP 16; O2SAT 96
[2017-04-25] MEDS ORDERED: ENALAPRILAT 1.25 MG/ML VIAL IV PUSH PRN (18:00)
[2017-04-25] MEDS ORDERED: GLUCAGON 1 MG/ML VIAL OTHER PRN (18:00)
[2017-04-25] MEDS ORDERED: DEXTROSE 50% IN WATER 50 ML VIAL(D50) IV PUSH PRN (18:00)
[2017-04-25 18:43] VITALS: BP 190/91; PULSE 70; RESP 18; TEMP 96.2; O2SAT 98
[2017-04-25] MEDS: SODIUM CHLOR 0.9% 1000 ML INJ 1,000 ML IV SCH (19:02)
[2017-04-25 19:20] VITALS: O2SAT 98
[2017-04-25 20:00] VITALS: PULSE 63
[2017-04-25 20:54] LABS: HEMOGLOBIN A1b 2.2 %; HEMOGLOBIN Ao 81.2 %; HEMOGLOBIN LA1C 2.7 %; HEMOGLOBIN P3 4.3 %
[2017-04-25] MEDS: INSULIN ASPART SUPPLEMENTAL SCALE SQ SCH (21:00)
[2017-04-25] MEDS: SODIUM CHLORIDE 0.9% FLUSH 5 ML FLUSH IV FLUSH SCH (21:00)
--- NOTE | 2017-04-25 21:01 | EKG ---
Date Performed: 04/25/2017 Time Performed: 15:18:10 PTAGE: 81 years EKG: Sinus rhythm LEFT ANTERIOR FASCICULAR BLOCK SEPTAL MYOCARDIAL INFARCTION ABNORMAL ECG PREVIOUS TRACING : 01/03/2017 09.17 Compared to prior tracing no significant change DOCTOR: Esperanza Joy Interpretating Date/Time 04/25/2017 20:59:55
[2017-04-26] VITALS (7 sets, daily range): BP systolic 138–184; BP diastolic 74–94; PULSE 51–80; RESP 18–22; TEMP 95.6–97.7; O2SAT 95–98
[2017-04-26] MEDS: INSULIN ASPART SUPPLEMENTAL SCALE SQ SCH ×4 (08:00→22:33)
[2017-04-26] MEDS: SODIUM CHLORIDE 0.9% FLUSH 5 ML FLUSH IV FLUSH SCH ×2 (09:00→22:33)
[2017-04-26] MEDS: SODIUM CHLOR 0.9% 1000 ML INJ 1,000 ML IV SCH ×2 (09:07→23:00)
--- NOTE | 2017-04-26 09:23 | RADRPT ---
EXAM DATE/TIME: 04/26/2017 08:14 [facility] COMPARISON: US CAROTID ARTERIES, November 15, 2015, 14:53. INDICATIONS : Cerebrovascular accident. MEDICAL HISTORY : Hypercholesterolemia. Hypertension. Carcinoma, bladder. CVA. Chest pain. Diabet es. SURGICAL HISTORY : Tonsillectomy. Prostatectomy. Bilateral cataracts. ENCOUNTER: Subsequent ACUITY: 1 day PAIN SCORE: 0/10 LOCATION: Bilateral neck PEAK SYSTOLIC VELOCITIES (cm/sec): ICA/CCA RATIO: Right: 0.9 Left: 0.9 ICA: Right: 82 Left: 75 CCA: Right: 88 Left: 86 ECA: Right: 61 Left: 51 VERTEBRAL: Right: 68 antegrade Left: 74 antegrade Elevated flow velocities and ICA/CCA ratios have been found to correlate with increased degrees of vessel stenosis, calculated as percentage of diameter relative to a normal segment of distal ICA/CCA FINDINGS: RIGHT CAROTID: There is no evidence for a hemodynamically significant carotid stenosis. Minimal int imal hyperplasia is present with scattered calcific plaque. LEFT CAROTID: There is no evidence for a hemodynamically significant carotid stenosis. Minimal inti mal hyperplasia is present with scattered calcific plaque. VERTEBRAL ARTERIES: Flow is antegrade in both vertebral arteries. MISCELLANEOUS: There are no ancillary masses or adenopathy. CONCLUSION: Negative examination for a hemodynamically significant carotid stenosis. Board Certified Radiologist. This report was verified electronically.
[2017-04-26] MEDS: ASPIRIN 81 MG CHEW TAB PO SCH (09:50)
[2017-04-26] MEDS: glipiZIDE 5 MG TAB PO SCH (12:45)
--- NOTE | 2017-04-26 12:45 | HHI.HP ---
[facility] Kerri Glasgow MD Admission Diagnosis unsteady gait, slurred speech, left sided numbness Diagnoses: Travel History International Travel<30 Days: No Contact w/Intl Traveler <30 Da: No Traveled to Known Affected Are: No History of Present Illness This is a pleasant 81-year-old male with past medical history of type 2 diabetes, TIA who presented to the emergency department yesterday for unsteady gait and confusion. History obtained from discussing with the patient as well as review of the emergency physician's documentation. The patient states that yesterday his balance was unsteady and he felt weakness in his legs. He states that his ex- told him that he was acting confused. The patient himself did feel somewhat confused. He had some transient right sided paresthesias which resolved. He denied any slurred speech, difficulty speaking , unilateral weakness. Patient does have history of TIA in 2016 consisting of right sided weakness which resolved on its own. At that time he was on aspirin and was recommended to switch to Plavix by the neurologist. Patient currently takes a baby aspirin daily and Plavix. Patient has no history of coronary artery stent. Patient today feels well and at his baseline. 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 Symptoms moderate no palliative or provocative factors. Review of Systems Constitutional: DENIES: Fever, Chills Eyes: DENIES: Blurred vision, Diplopia Ears, nose, mouth, throat: DENIES: Throat pain, Odynophagia Respiratory: DENIES: Cough, Shortness of breath Cardiovascular: DENIES: Palpitations Gastrointestinal: DENIES: Nausea, Vomiting Genitourinary: DENIES: Urgency, Dysuria Musculoskeletal: DENIES: Back pain, Neck pain Integumentary: DENIES: Rash Hematologic/lymphatic: DENIES: Lymphadenopathy Neurologic: COMPLAINS OF: Abnormal gait, DENIES: Headache Psychiatric: COMPLAINS OF: Confusion, DENIES: Anxiety Past Family Social History Past Medical History Hypertension Type 2 diabetes BPH History of urinary retention Hearing impaired 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 Hyperlipidemia Chronic chest pain, negative Loyda scan stress test March 2016 - no history of coronary artery disease Past Surgical History Prostatectomy Bilateral cataract surgery Tonsillectomy Reported Medications Allergies Coded Allergies Type Severity Reaction Last Updated Verified No Known Allergies Adverse Reaction Unknown 04/25/17 Yes Active Scripts Medications Dose Route/Sig Max Daily Dose Days Date Category Dose Instructions Metformin (Metformin HCl) 500 Mg Tab 500 Mg PO DAILY 01/03/17 Rx With a meal Enalapril (Enalapril Maleate) 20 Mg Tab 20 Mg PO DAILY 01/03/17 Reported Glipizide 5 Mg Tab 5 Mg PO DAILY 01/03/17 Reported Take 30 minutes before a meal Tamsulosin (Tamsulosin HCl) 0.4 Mg Cap 0.4 Mg PO HS 01/03/17 Reported Amlodipine (Amlodipine Besylate) 10 Mg Tab 10 Mg PO DAILY 10/30/16 Reported Nitroglycerin SL (Nitroglycerin) 0.4 Mg Subl 0.4 Mg SL DIRECTED PRN 08/23/16 Rx ONE TABLET UNDER THE TONGUE NEEDED FOR CHEST PAIN, MAY REPEAT EVERY FIVE MINUTES FOR A TOTAL OF 3 DOSES OR CALL 911 IF NO RELIEF Lisinopril 40 Mg Tab 40 Mg PO DAILY 08/22/16 Reported Plavix (Clopidogrel Bisulfate) 75 Mg Tab 75 Mg PO DAILY 08/22/16 Reported Aspirin 81 Mg Chew 81 Mg CHEW DAILY 08/22/16 Reported Allergies: Coded Allergies: No Known Allergies (Verified Adverse Reaction, Unknown, 04/25/17) Family History Reviewed and noncontributory. Social History Patient lives with his ex- and her girlfriend. He is taking care of his son 's children ages 8 and 9 because his son is in [employer]. Patient denies alcohol tobacco or drug use. Physical Exam Vital Signs Vital Signs Date Time Temp Pulse Resp B/P (MAP) Pulse Ox O2 Delivery O2 Flow Rate FiO2 04/26/17 08:00 96.7 61 18 170/74 (106) 96 04/26/17 08:00 97 21 04/26/17 04:00 96.1 59 20 160/84 (109) 97 04/26/17 00:00 96.9 51 20 184/89 (120) 98 04/25/17 20:00 63 04/25/17 19:20 98 21 04/25/17 18:43 96.2 70 18 190/91 (124) 98 04/25/17 18:25 04/25/17 17:32 80 16 156/86 (109) 96 Room Air 04/25/17 15:28 (121) 04/25/17 15:27 100 Room Air 04/25/17 15:23 Room Air 04/25/17 15:23 97.5 89 16 208/78 (121) 98 Room Air Physical Exam GENERAL: This is a well-nourished, well-developed elderly male patient , in no apparent distress. SKIN: No rashes, ecchymoses or lesions. Cool and dry. HEAD: Atraumatic. Normocephalic. EYES: Unequal pupils, right is larger. Extraocular muscles intact. No scleral icterus. No injection or drainage. ENT: Nose without bleeding, purulent drainage or septal hematoma. Throat without erythema, tonsillar hypertrophy or exudate. Uvula midline. Airway patent. NECK: Trachea midline. No JVD or lymphadenopathy. Supple, nontender, no meningeal signs. CARDIOVASCULAR: Regular rate and rhythm without murmurs, gallops, or rubs. RESPIRATORY: Clear to auscultation. Breath sounds equal bilaterally. No wheezes , rales, or rhonchi. GASTROINTESTINAL: Abdomen soft, non-tender, nondistended. MUSCULOSKELETAL: Extremities without clubbing, cyanosis, or edema. NEUROLOGICAL: Awake and alert. Cranial nerves II through XII intact. Motor and sensory grossly within normal limits. Five out of 5 muscle strength in all muscle groups. Normal speech. Laboratory Laboratory Tests Test 04/25/17 15:15 04/25/17 16:15 04/26/17 05:10 White Blood Count 5.4 Red Blood Count 4.64 Hemoglobin 12.1 Hematocrit 36.9 Mean Corpuscular Volume 79.6 Mean Corpuscular Hemoglobin 26.0 Mean Corpuscular Hemoglobin Concent 32.7 Red Cell Distribution Width 13.7 Platelet Count 192 Mean Platelet Volume 8.4 Neutrophils (%) (Auto) 74.0 Lymphocytes (%) (Auto) 18.3 Monocytes (%) (Auto) 4.0 Eosinophils (%) (Auto) 3.4 Basophils (%) (Auto) 0.3 Neutrophils # (Auto) 3.9 Lymphocytes # (Auto) 1.0 Monocytes # (Auto) 0.2 Eosinophils # (Auto) 0.2 Basophils # (Auto) 0.0 CBC Comment DIFF FINAL Differential Comment Prothrombin Time 10.7 Prothromb Time International Ratio 1.0 Activated Partial Thromboplast Time 31.3 Blood Urea Nitrogen 14 Creatinine 0.87 Random Glucose 194 Total Protein 7.3 Albumin 3.8 Calcium Level 8.0 Phosphorus Level 2.2 Magnesium Level 1.8 Alkaline Phosphatase 107 Aspartate Amino Transf (AST/SGOT) 15 Alanine Aminotransferase (ALT/SGPT) 21 Total Bilirubin 0.4 Sodium Level 140 Potassium Level 4.0 Chloride Level 104 Carbon Dioxide Level 29.1 Anion Gap 7 Estimat Glomerular Filtration Rate 84 Hemoglobin A1c 8.3 Total Creatine Kinase 101 Creatine Kinase MB 3.6 Troponin I LESS THAN 0.02 Ethyl Alcohol Level LESS THAN 3 Urine Color YELLOW Urine Turbidity CLEAR Urine pH 6.0 Urine Specific Guild 1.015 Urine Protein NEG Urine Glucose (UA) 1000 OR GREATER Urine Ketones NEG Urine Occult Blood NEG Urine Nitrite NEG Urine Bilirubin NEG Urine Leukocyte Esterase TRACE Urine RBC 0-3 Urine WBC 15-19 Urine Squamous Epithelial Cells 0-5 Microscopic Urinalysis Comment CULTURE INDICATED Urine Opiates Screen NEG Urine Barbiturates Screen NEG Urine Amphetamines Screen NEG Urine Benzodiazepines Screen NEG Urine Cocaine Screen NEG Urine Cannabinoids Screen NEG Triglycerides Level 87 Cholesterol Level 127 LDL Cholesterol 68 HDL Cholesterol 42.0 Cholesterol/HDL Ratio 3.02 Date/Time Source Procedure Growth Status 04/25/17 16:15 Urine Clean Catch Urine Culture Pending Received Result Diagram: 04/25/17 1515 04/25/17 1515 Imaging Last Impressions Carotid Artery Ultrasound 04/26/17 0000 Signed Impressions: Service Date/Time: Wednesday, April 26, 2017 08:14 - CONCLUSION: Negative examination for a hemodynamically significant carotid stenosis. Board Certified Radiologist. This report was verified electronically. Head CT 04/25/17 0000 Signed Impressions: Service Date/Time: Tuesday, April 25, 2017 16:17 - CONCLUSION: 1. No acute intracranial abnormality. 2. Chronic small vessel ischemic change. Hansel Eubanks Jr., MD Chest X-Ray 04/25/17 0000 Signed Impressions: Service Date/Time: Tuesday, April 25, 2017 16:03 - CONCLUSION: No acute cardiopulmonary abnormality is identified. MD Isiah Adams VTE Risk Assessment Caprinmontana VTE Risk Assessment: Mod/High Risk (score >= 2) Caprini Risk Assessment Model Point Value = 1 Point Value = 2 Point Value = 3 Point Value = 5 Age 41-60 Minor surgery BMI > 25 kg/m2 Swollen legs Varicose veins or History of unexplained or recurrent spontaneous Oral contraceptives or hormone replacement Sepsis (< 1 month) Serious lung disease, including pneumonia (< 1 month) Abnormal pulmonary function Acute myocardial infarction Congestive heart failure (< 1 month) History of inflammatory bowel disease Medical patient at bed rest Age 61-74 Arthroscopic surgery Major open surgery (> 45 min) Laparoscopic surgery (> 45 min) Malignancy Confined to bed (> 72 hours) Immobilizing plaster cast Central venous access Age >= 75 History of VTE Family history of VTE Factor V Leiden Prothrombin [id number] Lupus anticoagulant Anticardiolipin antibodies Elevated serum homocysteine Heparin-induced thrombocytopenia Other congenital or acquired thrombophilia Stroke (< 1 month) Elective arthroplasty Hip, pelvis, or leg fracture Acute spinal cord injury (< 1 month) Prophylaxis Regimen Total Risk Factor Score Risk Level Prophylaxis Regimen 0-1 Low Early ambulation 2 Moderate Order ONE of the following: *Sequential Compression Device (SCD) *Heparin 5000 units SQ BID 3-4 Higher Order ONE of the following medications: *Heparin 5000 units SQ TID *Enoxaparin/Lovenox 40 mg SQ daily (WT < 150 kg, CrCl > 30 mL/min) *Enoxaparin/Lovenox 30 mg SQ daily (WT < 150 kg, CrCl > 10-29 mL/min) *Enoxaparin/Lovenox 30 mg SQ BID (WT < 150 kg, CrCl > 30 mL/min) AND/OR *Sequential Compression Device (SCD) 5 or more Highest Order ONE of the following medications: *Heparin 5000 units SQ TID (Preferred with Epidurals) *Enoxaparin/Lovenox 40 mg SQ daily (WT < 150 kg, CrCl > 30 mL/min) *Enoxaparin/Lovenox 30 mg SQ daily (WT < 150 kg, CrCl > 10-29 mL/min) *Enoxaparin/Lovenox 30 mg SQ BID (WT < 150 kg, CrCl > 30 mL/min) AND *Sequential Compression Device (SCD) Assessment and Plan Problem List: (1) Unsteady gait ICD Code: R26.81 - Unsteadiness on feet Status: Acute (2) Altered mental status ICD Code: R41.82 - Altered mental status, unspecified Status: Acute Assessment and Plan -Transient confusion. He also had some transient right sided paresthesias. Gait instability. May have been a TIA. Apparently he normally does not know what the date is. So he may have some mild cognitive impairment. Patient does have previous history of TIA and is on aspirin. Normal sinus rhythm on EKG and telemetry. Doppler carotid ultrasound negative. Brain MRI pending. Patient appears back to neurologic baseline. He has been continued on aspirin and Plavix. LDL is 68. Neurology consultation requested for input. -Hypertension - resume Norvasc and lisinopril. -Type 2 diabetes - resume glipizide. Sliding scale insulin. -BPH, History of urinary retention - continue Flomax -DVT prophylaxis with SCDs. Problem Qualifiers (1) Altered mental status: Qualified Codes: R41.82 - Altered mental status, unspecified Stephanie Combs MD Apr 26, 2017 12:45
--- NOTE | 2017-04-26 13:31 | MB ---
cc: JAMAR CRUZ M.D. DATE OF CONSULTATION 04/26/2017 REASON FOR CONSULTATION This is an 81-year-old seen in neurological consultation. HISTORY OF PRESENT ILLNESS He was brought to the hospital yesterday when his family, I believe the ex-, found him to be more unsteady and more dizzy and showed more slowing. Apparently this seemed to be worse then usual and he was brought to the hospital. He felt dizzy and apparently had some spinning. He is feeling much better this morning, felt that he was completely recovered. PAST MEDICAL HISTORY 1. He is diabetic type 2. 2. He has a history of a hypertension and may have had a stroke or TIA a year ago. Apparently he had right-sided weakness and was switched from aspirin to Plavix, but currently he is taking both baby aspirin and Plavix. 3. History of coronary artery disease. PHYSICAL EXAM The exam shows the patient to be alert and oriented, pleasant, cooperative. NEUROLOGIC: Ocular movements were full as well as visual sharp. The right pupil is larger and slightly oval apparently following cataract surgery several years ago, but he was able to count fingers well. He does have upward gaze impairment, but downward gaze is preserved, as well as lateral gaze. There is no facial weakness. He has no overt focal deficits except that he apparently had extensive leg/knee injuries many years ago bilaterally and his left leg is a little bit weaker on dorsiflexion of the foot than the right. Reflexes were trace versus absent at the ankles, diminished, but present at the knees and elbows. Plantar responses were flexor. ASSESSMENT Possible TIA, though difficult to be ascertained. This could have been a vertebrobasilar event. He is having MRI of the brain and I also asked for MRA of the head. The CT brain and carotid ultrasound studies were negative. Continue aspirin and Plavix for now, although later we have to review these as the combination of antiplatelet agents might not be in his best. The EKG shows a sinus rhythm. We will request an echocardiogram, although I believe this is already requested. A lipid profile showed an LDL of 68. Would continue to monitor this and ideally would like to see his LDL below 60. I will follow the neurological course and they should add that the urinalysis shows findings suggestive of urinary tract infection. Thank you for asking us to assist in his care. MD JASMYN Echols/DJL /1:14 PM /1:28 PM
[2017-04-26] MEDS: CLOPIDOGREL 75 MG TAB PO SCH (13:35)
[2017-04-26] MEDS: LISINOPRIL 20 MG TAB PO SCH (13:35)
--- NOTE | 2017-04-26 16:47 | ECHRPT ---
Indication: CVA/TIA CONCLUSIONS Normal left ventricular size. Mild concentric left ventricular hypertrophy. The left ventricular systolic function is grossly normal on limited imaging. [id number] mitral valve regurgitation. Mild mitral annular calcification. There is trace tricuspid valve regurgitation. BP: 170 / 74 HR: 61 Rhythm: MEASUREMENTS (Male / Female) Normal Values Technical Quality: 2D ECHO LV Diastolic Diameter PLAX 3.8 cm 4.2 - 5.9 / 3.9 - 5.3 cm LV Systolic Diameter PLAX 2.5 cm IVS Diastolic Thickness 1.3 cm 0.6 - 1.0 / 0.6 - 0.9 cm LVPW Diastolic Thickness 1.3 cm 0.6 - 1.0 / 0.6 - 0.9 cm LV Relative Wall Thickness 0.7 LVOT Diameter 2.0 cm Aortic Root Diameter 3.3 cm LA Systolic Diameter LX 3.4 cm 3.0 - 4.0 / 2.7 - 3.8 cm M-MODE AV Cusp Separation MM 2.1 cm DOPPLER AV Peak Velocity 136.0 cm/s AV Peak Gradient 7.4 mmHg AV Mean Gradient 3.0 mmHg AV Velocity Time Integral 26.1 cm LVOT Peak Velocity 102.0 cm/s LVOT Peak Gradient 4.2 mmHg LVOT Velocity Time Integral 18.8 cm AV Area Cont Eq vti 2.3 cm AV Area Cont Eq pk 2.4 cm Mitral E Point Velocity 78.5 cm/s Mitral A Point Velocity 128.0 cm/s Mitral E to A Ratio 0.6 LV E' Lateral Velocity 5.6 cm/s Mitral E to LV E' Lateral Ratio 14.1 LV E' Septal Velocity 4.3 cm/s Mitral E to LV E' Septal Ratio 18.3 PV Peak Velocity 66.2 cm/s PV Peak Gradient 1.8 mmHg FINDINGS LEFT VENTRICLE Normal left ventricular size. Mild concentric left ventricular hypertrophy. The left ventricular systolic function is grossly normal on limited imaging with LVEF 70%. RIGHT VENTRICLE Normal right ventricular size and systolic function. LEFT ATRIUM The left atrial size is normal. RIGHT ATRIUM The right atrial size is normal. ATRIAL SEPTUM Normal atrial septal thickness without atrial level shunting by limited color doppler interrogation. AORTA The aortic root and proximal ascending aorta are normal in size on limited imaging. MITRAL VALVE [id number] mitral valve regurgitation. Mild mitral annular calcification. AORTIC VALVE Trileaflet aortic valve. No aortic valve stenosis or regurgitation. TRICUSPID VALVE There is trace tricuspid valve regurgitation. PULMONARY VALVE The pulmonary valve is not well visualized. VESSELS The inferior vena cava is normal in size. PERICARDIUM No pericardial effusion. Benoit Hope MD (Electronically Signed) Final Date:26 April 2017 16:46
--- NOTE | 2017-04-26 17:07 | RADRPT ---
EXAM DATE/TIME: 04/26/2017 16:25 [facility] COMPARISON: No previous studies available for comparison. INDICATIONS : Left sided numbness MEDICAL HISTORY : Diabetes mellitus type 2. Hypertension. Carcinoma, prostate. SURGICAL HISTORY : Tonsillectomy. Prostatectomy. ENCOUNTER: Initial ACUITY: 2 day PAIN SCORE: 0/10 LOCATION: head Please note a normal MRA of the brain does not entirely exclude the possibility of a small aneurysm, nor the possibility of distal intracranial vessel disease. TECHNIQUE: 3D time of flight MRA was performed. Source images, multiplanar STS MIP, and 3D volume MIP reconstru ctions were reviewed. FINDINGS: There is excellent visualization of the major intracranial arteries out to the second-order branch ve ssels. There is no evidence for aneurysm, vessel truncation or stenosis, and no evidence for vascula r malformation. CONCLUSION: Negative for major branch vessel occlusion. Esau Hollingsworth MD FACR on April 26, 2017 at 17:05 Board Certified Radiologist. This report was verified electronically.
--- NOTE | 2017-04-26 17:36 | RADRPT ---
EXAM DATE/TIME: 04/26/2017 16:25 [facility] COMPARISON: MRI BRAIN W/O CONTRAST, November 15, 2015, 14:58. INDICATIONS : CVA. Numbness in extremities. Unsteady gait. MEDICAL HISTORY : Diabetes mellitus type 2. Hypertension. Carcinoma, prostate. SURGICAL HISTORY : Tonsillectomy. Prostatectomy. ENCOUNTER: Initial ACUITY: 1 day PAIN SCORE: 0/10 LOCATION: head TECHNIQUE: Multiplanar, multisequence MRI of the brain was performed without contrast. FINDINGS: Marked periventricular white matter changes evident with associated central and cortical atrophy. Ve ntricles are prominent. These white matter changes extend into the svetlana. There are no extra-axial fluid collections appreciated There is no parenchymal hemorrhage Other than the ischemic changes posterior fossa is unremarkable CONCLUSION: 1. Negative for infarct 2. Marked periventricular white matter changes extending into the posterior fossa. Negative for retinal hemorrhage. Esau Hollingsworth MD FACR on April 26, 2017 at 17:33 Board Certified Radiologist. This report was verified electronically.
[2017-04-26] MEDS ORDERED: TAMSULOSIN HCL 0.4 MG CAP PO SCH (21:00)
[2017-04-26] MEDS: CIPROFLOXACIN 250 MG TAB PO SCH (22:32)
[2017-04-27] VITALS: BP 144/72; PULSE 70; RESP 20; TEMP 96.3; O2SAT 100
[2017-04-27 08:00] VITALS: BP 188/71; PULSE 86; RESP 20; TEMP 97.2; O2SAT 94
[2017-04-27] MEDS: INSULIN ASPART SUPPLEMENTAL SCALE SQ SCH ×2 (08:00→12:00)
[2017-04-27] MEDS: SODIUM CHLORIDE 0.9% FLUSH 5 ML FLUSH IV FLUSH SCH (09:00)
[2017-04-27] MEDS: CIPROFLOXACIN 250 MG TAB PO SCH (09:00)
[2017-04-27] MEDS: ASPIRIN 81 MG CHEW TAB PO SCH (09:11)
[2017-04-27] MEDS: CLOPIDOGREL 75 MG TAB PO SCH (09:11)
[2017-04-27] MEDS: glipiZIDE 5 MG TAB PO SCH (09:11)
[2017-04-27] MEDS: LISINOPRIL 20 MG TAB PO SCH (09:11)
--- NOTE | 2017-04-27 09:41 | HHI.FF ---
Face to Face Verification Diagnosis: (1) TIA (transient ischemic attack) (2) Unsteady gait Physical Therapy Order: Evaluate and Treat Home Health Nursing Order: Medical education Nursing assessment with vital signs I have seen patient Ernie Elliott on 04/27/17. My clinical findings support the need for the requested home health care services because: Deconditioned w/ increased weakness Need for psychosocial assistance I certify that my clinical findings support that this patient is homebound because: Unsteady gait/balance Need for psychosocial assistance Stephanie Combs MD Apr 27, 2017 09:41
[2017-04-27] MEDS ORDERED: AMOX500C PO (09:46)
--- NOTE | 2017-04-27 11:41 | HHI.PR ---
Subjective Remarks Patient denies complaints. No new neurologic symptoms. Patient ambulating with fair balance. PT notes he is somewhat impulsive. Patient did get up from bed on his own and walk to the bathroom setting off the bed alarm. Objective Vitals Vital Signs Date Time Temp Pulse Resp B/P (MAP) Pulse Ox O2 Delivery O2 Flow Rate FiO2 04/27/17 08:00 97.2 86 20 188/71 (110) 94 04/27/17 00:00 96.3 70 20 144/72 (96) 100 04/26/17 21:35 95 21 04/26/17 20:00 61 04/26/17 20:00 95.6 76 22 156/94 (114) 97 04/26/17 16:00 97.7 66 18 140/80 (100) 95 04/26/17 12:00 97.1 80 18 138/81 (100) 96 I/O 04/26/17 04/26/17 04/26/17 04/27/17 04/27/17 04/27/17 07:00 15:00 23:00 07:00 15:00 23:00 Intake Total 809 ml 480 ml 1423 ml Output Total 300 ml 500 ml 750 ml Balance -300 ml 809 ml -20 ml 673 ml Intake Oral 480 ml 580 ml IV Total 809 ml 843 ml Output Urine Total 300 ml 500 ml 750 ml # Voids 3 # Bowel Movements 0 0 Result Diagram: 04/25/17 1515 04/25/17 1515 Objective Remarks GENERAL: Well-nourished, well-developed lean elderly male patient. SKIN: Warm and dry. HEAD: Normocephalic. EYES: No scleral icterus. No injection or drainage. Unequal pupils. NECK: Supple, trachea midline. No JVD or lymphadenopathy. CARDIOVASCULAR: Regular rate and rhythm without murmurs, gallops, or rubs. RESPIRATORY: Breath sounds equal bilaterally. No accessory muscle use. GASTROINTESTINAL: Abdomen soft, non-tender, nondistended. EXTREMITIES: No cyanosis, or edema. NEUROLOGICAL: Awake, alert, and oriented to self and place not date. Non-focal. A/P Problem List: (1) Unsteady gait ICD Code: R26.81 - Unsteadiness on feet Status: Acute (2) Altered mental status ICD Code: R41.82 - Altered mental status, unspecified Status: Acute Assessment and Plan -Transient confusion. He also had some transient right sided paresthesias. Gait instability. May have been a TIA. Apparently he normally does not know what the date is. So he may have some mild cognitive impairment; I do suspect underlying dementia. Patient does have previous history of TIA and is on aspirin and Plavix. Normal sinus rhythm on EKG and telemetry. Doppler carotid ultrasound negative. Brain MRI and MRA are negative. 2-D echo within normal limits. Patient appears back to neurologic baseline. I discussed with neurology Dr. Wills; he recommends discontinuing aspirin and continuing Plavix, and follow-up with Dr. Demarco neurology for cognitive evaluation for dementia. I have attempted to call the patient's ex- with whom he lives twice to convey this however no answer. Therefore I've discussed this with the nurse and she will convey the medication changes to the patient's family. Home health care and physical therapy has been arranged. Patient to be discharged home today. -Enterococcal UTI. Will treat with amoxicillin. -Hypertension - resume Norvasc and lisinopril. -Type 2 diabetes - resume glipizide. Sliding scale insulin. -BPH, History of urinary retention - continue Flomax -DVT prophylaxis with SCDs. Problem Qualifiers (1) Altered mental status: Qualified Codes: R41.82 - Altered mental status, unspecified Stephanie Combs MD Apr 27, 2017 11:41
[2017-04-27] MEDS: SODIUM CHLOR 0.9% 1000 ML INJ 1,000 ML IV SCH (12:48)
== END 2017-04-27 15:20 | disposition home health service (06) | DRG 69 ==
LOC: PHED 15:00 → PHEDA 17:36 → OBSVTOIN 17:56 → PH3A 18:35
PROVIDERS: ADMIT Family Medicine; ATTEND Family Medicine
DX: G45.9 Transient cerebral ischemic attack, unspecified (principal); E11.9 Type 2 diabetes mellitus without complications; N39.0 Urinary tract infection, site not specified; I10 Essential (primary) hypertension; B95.2 Enterococcus as the cause of diseases classified elsewhere; R26.81 Unsteadiness on feet; H91.90 Unspecified hearing loss, unspecified ear; R47.81 Slurred speech; N40.0 Benign prostatic hyperplasia without lower urinary tract symptoms; E78.5 Hyperlipidemia, unspecified; I25.10 Atherosclerotic heart disease of native coronary artery without angina pectoris; G89.29 Other chronic pain; R07.9 Chest pain, unspecified; Z86.73 Personal history of transient ischemic attack (TIA), and cerebral infarction without residual deficits; Z79.02 Long term (current) use of antithrombotics/antiplatelets; Z79.84 Long term (current) use of oral hypoglycemic drugs; Z79.82 Long term (current) use of aspirin; Z85.51 Personal history of malignant neoplasm of bladder
CPT/HCPCS: 70450; 70544; 70551; 71010; 80053; 80061; 80307; 81001; 82550; 82552; 82948; 83036; 83735; 84100; 84484; 85025; 85610; 85730; 87077; 87086; 87186; 93005; 93306; 93880; J1815; J7030

== ENCOUNTER 2017-08-14 19:25 | Observation (INO) | payer MEDICARE, OTHER ==
[~2017-08-14] VITALS: Ht 165.1 cm; Wt 72.0 kg
[~2017-08-14 19:25] MED LIST changes: +AMOX500C PO; -ASPI-516 CHEW
[2017-08-14] MEDS ORDERED: IOHEXOL 350 MG/ML 10 ML VIAL (for RAD DIAG) IVCONTRAST ONE (19:26)
[2017-08-14 19:33] VITALS: BP 168/76; PULSE 90; RESP 18; TEMP 97.7; O2SAT 98
--- NOTE | 2017-08-14 19:34 | PD ---
HPI Chief Complaint: Chest pain Time Seen by Provider: 19:28 Travel History International Travel<30 days: No Contact w/Intl Traveler<30days: No Traveled to known affect area: No History of Present Illness HPI 82-year-old male complains of chest pain. Patient states the pain started this afternoon. Patient states that he was sitting watching TV when the pain started. Patient stated the pain is sharp pain started at the substernal area and persistent since then. Patient states that the pain became aching pain now. Patient denies any pain radiation. Patient denies palpitation nausea or diaphoresis. Patient denies any coughing congestion fever chills. EMS was called. Patient was given nitroglycerin and aspirin. Patient states that the pain gradually got better since then. Originally on a scale from 1-10 the pain was a 10. Patient states that the pain is about 5 now. Patient denies history of CAD. Patient has history of hypertension, diabetes. Patient is not sure about hyperlipidemia. Patient is a non-smoker. Patient is not sure of family history of heart disease. Patient is on Plavix. PFSH Past Medical History Hx Anticoagulant Therapy: Yes Arthritis: No Asthma: No Autoimmune Disease: No Blood Disorders: No Heart Rhythm Problems: No Cancer: Yes (BLADDER CANCER) Cardiac Catheterization: No Cardiovascular Problems: Yes High Cholesterol: Yes Chemotherapy: No Chest Pain: Yes Congestive Heart Failure: No COPD: No Cerebrovascular Accident: Yes Diabetes: Yes Diminished Hearing: Yes (Bilateral [place]) Endocrine: Yes Gastrointestinal Disorders: No GERD: No Genitourinary: No Headaches: Yes Hiatal Hernia: No Hypertension: Yes Immune Disorder: No Implanted Vascular Access Dvce: Yes Kidney Stones: No Musculoskeletal: No Neurologic: Yes Psychiatric: No Reproductive: No Respiratory: No Immunizations Current: Yes Migraines: No Radiation Therapy: No Renal Failure: No Seizures: No Sickle Cell Disease: No Sleep Apnea: No Thyroid Disease: No Ulcer: No Past Surgical History Abdominal Surgery: No AICD: No Arteriovenous Shunt: No Body Medical Devices: URINARY CATH WITH LEG BAG Cardiac Surgery: No Coronary Artery Bypass Graft: No Ear Surgery: No Endocrine Surgery: No Eye Surgery: Yes (BL CATARACT) Genitourinary Surgery: Yes (PROSTATECTOMY) Gynecologic Surgery: No Insulin Pump: No Joint Replacement: No Neurologic Surgery: No Oral Surgery: Yes (TONSILLECTOMY) Pacemaker: No Prostatectomy: Yes Thoracic Surgery: No Tonsillectomy: Yes Other Surgery: Yes (TONSILLECTOMY, BL CATARACT SURGERY) Social History Alcohol Use: No (QUIT) Tobacco Use: No Substance Use: No Allergies-Medications (Allergen,Severity, Reaction): Coded Allergies: No Known Allergies (Verified Adverse Reaction, Unknown, 08/14/17) Reported Meds & Prescriptions Reported Meds & Active Scripts Active Metformin (Metformin HCl) 500 Mg Tab 500 Mg PO DAILY With a meal Nitroglycerin SL (Nitroglycerin) 0.4 Mg Subl 0.4 Mg SL DIRECTED PRN ONE TABLET UNDER THE TONGUE NEEDED FOR CHEST PAIN, MAY REPEAT EVERY FIVE MINUTES FOR A TOTAL OF 3 DOSES OR CALL 911 IF NO RELIEF Reported Enalapril (Enalapril Maleate) 20 Mg Tab 20 Mg PO DAILY Glipizide 5 Mg Tab 5 Mg PO DAILY Take 30 minutes before a meal Tamsulosin (Tamsulosin HCl) 0.4 Mg Cap 0.4 Mg PO HS Amlodipine (Amlodipine Besylate) 10 Mg Tab 10 Mg PO DAILY Lisinopril 40 Mg Tab 40 Mg PO DAILY Plavix (Clopidogrel Bisulfate) 75 Mg Tab 75 Mg PO DAILY Review of Systems General / Constitutional: No: Fever Eyes: No: Visual changes HENT: No: Headaches Cardiovascular: Positive: Chest Pain or Discomfort Respiratory: No: Shortness of Breath Gastrointestinal: No: Abdominal Pain Genitourinary: No: Dysuria Musculoskeletal: No: Pain Skin: No Rash Neurologic: No: Weakness Psychiatric: No: Depression Endocrine: No: Polydipsia Hematologic/Lymphatic: No: Easy Bruising Physical Exam Narrative GENERAL: Well-nourished, well-developed patient. SKIN: Focused skin assessment warm/dry. HEAD: Normocephalic. EYES: No scleral icterus. No injection or drainage. NECK: Supple, trachea midline. No JVD or lymphadenopathy. CARDIOVASCULAR: Regular rate and rhythm without murmurs, gallops, or rubs. RESPIRATORY: Breath sounds equal bilaterally. No accessory muscle use. GASTROINTESTINAL: Abdomen soft, non-tender, nondistended. MUSCULOSKELETAL: No cyanosis, or edema. BACK: Nontender without obvious deformity. No CVA tenderness. Neurologic exam normal. Data Data Last Documented VS Vital Signs Date Time Temp Pulse Resp B/P (MAP) Pulse Ox O2 Delivery O2 Flow Rate FiO2 08/14/17 19:55 84 18 144/67 (92) 98 Room Air 08/14/17 19:33 97.7 Orders Orders Electrocardiogram (08/14/17 19:29) Complete Blood Count With Diff (08/14/17 19:29) Comprehensive Metabolic Panel (08/14/17:29) Creatine Kinase (Cpk) (08/14/17 19:29) Troponin I (08/14/17:) B-Type Natriuretic Peptide (08/14/17:29) Prothrombin Time / Inr (Pt) (08/14/17:) Act Partial Throm Time (Ptt) (08/14/17:29) D-Dimer (08/14/17:) Chest, Single Ap (08/14/17:) Iv Access Insert/Monitor (08/14/17) Ecg Monitoring (08/14/17:) Oximetry (08/14/17:29) Ct Pulmonary Angiogram (08/14/17 19:30) Iohexol 350 Inj (Omnipaque 350 Inj) (08/14/17 19:26) Labs Laboratory Tests Test 08/14/17 19:40 White Blood Count 6.5 TH/MM3 Red Blood Count 4.47 MIL/MM3 Hemoglobin 11.9 GM/DL Hematocrit 35.0 % Mean Corpuscular Volume 78.3 FL Mean Corpuscular Hemoglobin 26.6 PG Mean Corpuscular Hemoglobin Concent 34.0 % Red Cell Distribution Width 15.0 % Platelet Count 199 TH/MM3 Mean Platelet Volume 8.5 FL Neutrophils (%) (Auto) 73.3 % Lymphocytes (%) (Auto) 18.6 % Monocytes (%) (Auto) 5.5 % Eosinophils (%) (Auto) 2.1 % Basophils (%) (Auto) 0.5 % Neutrophils # (Auto) 4.8 TH/MM3 Lymphocytes # (Auto) 1.2 TH/MM3 Monocytes # (Auto) 0.4 TH/MM3 Eosinophils # (Auto) 0.1 TH/MM3 Basophils # (Auto) 0.0 TH/MM3 CBC Comment DIFF FINAL Differential Comment Prothrombin Time 10.7 SEC Prothromb Time International Ratio 1.1 RATIO Activated Partial Thromboplast Time 28.5 SEC D-Dimer Quantitative (PE/DVT) 0.42 MG/L FEU Blood Urea Nitrogen 21 MG/DL Creatinine 1.00 MG/DL Random Glucose 109 MG/DL Total Protein 6.7 GM/DL Albumin 3.6 GM/DL Calcium Level 8.6 MG/DL Alkaline Phosphatase 106 U/L Aspartate Amino Transf (AST/SGOT) 22 U/L Alanine Aminotransferase (ALT/SGPT) 18 U/L Total Bilirubin 0.8 MG/DL Sodium Level 136 MEQ/L Potassium Level 4.1 MEQ/L Chloride Level 101 MEQ/L Carbon Dioxide Level 26.2 MEQ/L Anion Gap 9 MEQ/L Estimat Glomerular Filtration Rate 72 ML/MIN Total Creatine Kinase 200 U/L Troponin I LESS THAN 0.02 NG/ML B-Type Natriuretic Peptide 31 PG/ML MDM Medical Decision Making Medical Screen Exam Complete: Yes Emergency Medical Condition: Yes Interpretation(s) 3 PM. EKG shows sinus rhythm with nonspecific ST-T wave change. Last Impressions Chest X-Ray 08/14/171928 Signed Impressions: Service Date/Time: Monday, August 14, 2017 19:44 - CONCLUSION: The lungs are clear. Hansel Vargas MD 2056 PM. CBC WBC 6.5. Hemoglobin 11 point hematocrit 35.0. MCV 78.3. 73 neutrophil. CMP within normal limits. BUN 21. 22:[address] pulmonary angiogram negative acute pathology. Differential Diagnosis Differential diagnoses including musculoskeletal, angina, MD, PE, pneumothorax. Narrative Course 82-year-old male with chest pain. Patient was given aspirin and nitroglycerin by EMS. Patient will be admitted to the chest pain center. Diagnosis Primary Impression: Chest pain Qualified Codes: R07.9 - Chest pain, unspecified Admitting Information Admitting Physician Requests: Observation Adi Peter MD Aug 14, 2017 19:34
[2017-08-14 19:35] VITALS: RESP 18
[2017-08-14 19:55] VITALS: BP 144/67; PULSE 84; RESP 18; O2SAT 98
[2017-08-14 20:10] LABS: AUTOMATED NEUTROPHIL # 4.8 TH/MM3 (1.8-7.7); BASOPHIL % 0.5 % (0.0-2.0); EOSINOPHIL # 0.1 TH/MM3 (0-0.4); EOSINOPHIL % 2.1 % (0.0-4.0); HEMOGLOBIN 11.9 GM/DL (13.0-17.0); LYMPH % 18.6 % (9.0-44.0); LYMPHOCYTE # 1.2 TH/MM3 (1.0-4.8); MEAN CELL VOLUME 78.3 FL (80.0-100.0); MEAN CORPUSCULAR HEMOGLOBIN 26.6 PG (27.0-34.0); MEAN PLATELET VOLUME 8.5 FL (7.0-11.0); MONO % 5.5 % (0.0-8.0); MONOCYTE # 0.4 TH/MM3 (0-0.9); NEUT % 73.3 % (16.0-70.0); PLATELET COUNT 199 TH/MM3 (150-450); RED BLOOD COUNT 4.47 MIL/MM3 (4.50-5.90); WHITE BLOOD COUNT 6.5 TH/MM3 (4.0-11.0)
--- NOTE | 2017-08-14 20:17 | RADRPT ---
EXAM DATE/TIME: 08/14/2017 19:44 [facility] COMPARISON: CHEST SINGLE AP, April 25, 2017, 16:03. INDICATIONS : Short of breath. MEDICAL HISTORY : Cardiovascular disease. Cerebrovascular disease. Hypertension. SURGICAL HISTORY : None. ENCOUNTER: Initial ACUITY: >1 year PAIN SCORE: 0/10 LOCATION: Bilateral chest FINDINGS: A single view of the chest demonstrates the lungs to be symmetrically aerated without evidence of mas s, infiltrate or effusion. The cardiomediastinal contours are unremarkable. Osseous structures are intact. CONCLUSION: The lungs are clear. Hansel Vargas MD on August 14, 2017 at 20:15 Board Certified Radiologist. This report was verified electronically.
[2017-08-14 20:26] LABS: INTERNATIONAL NORMALIZED RATIO 1.1 RATIO; PROTHROMBIN TIME - PATIENT 10.7 SEC (9.8-11.6)
[2017-08-14 20:31] LABS: ALBUMIN 3.6 GM/DL (3.4-5.0); AST (GOT) 22 U/L (15-37); BICARBONATE 26.2 MEQ/L (21.0-32.0); BLOOD UREA NITROGEN 21 MG/DL (7-18); CALCIUM 8.6 MG/DL (8.5-10.1); CHLORIDE 101 MEQ/L (98-107); GLOMERULAR FILTRATION RATE 72 ML/MIN (>89); GLUCOSE,RANDOM 109 MG/DL (74-106); SODIUM (NA) 136 MEQ/L (136-145)
[2017-08-14 20:32] LABS: ALT (GPT) 18 U/L (12-78)
[2017-08-14 20:35] LABS: ALKALINE PHOSPHATASE 106 U/L (45-117); D-DIMER 0.42 MG/L FEU (0.00-0.50); TOTAL BILIRUBIN ADULT 0.8 MG/DL (0.2-1.0); TOTAL PROTEIN 6.7 GM/DL (6.4-8.2); TROPONIN I LESS THAN 0.02 NG/ML (0.02-0.05)
--- NOTE | 2017-08-14 21:59 | RADRPT ---
EXAM DATE/TIME: 08/14/2017 21:16 [facility] COMPARISON: No previous studies available for comparison. INDICATIONS : Chest pain, evaluate for pulmonary emboli. IV CONTRAST: 75 cc Omnipaque 350 (iohexol) IV RADIATION DOSE: 6.91 CTDIvol (mGy) MEDICAL HISTORY : Cardiovascular disease. Hypertension. Cerebrovascular disease.bladder cancer SURGICAL HISTORY : Prostatectomy. ENCOUNTER: Initial ACUITY: 1 day PAIN SCALE: 5/10 LOCATION: chest TECHNIQUE: Volumetric scanning of the chest was performed using a pulmonary embolism protocol MIP images were re constructed. Using automated exposure control and adjustment of the mA and/or kV according to patien t size, radiation dose was kept as low as reasonably achievable to obtain optimal diagnostic quality images. DICOM format image data is available electronically for review and comparison. Follow-up recommendations for detected pulmonary nodules are based at a minimum on nodule size and pa tient risk factors according to Fleischner Society Guidelines. FINDINGS: PULMONARY ARTERIES: No filling defects are seen in the pulmonary arteries through the segmental level. LUNGS: There is no consolidation or pneumothorax . No concerning pulmonary nodule is visualized. Small thi n-walled parenchymal cyst right lower lobe measuring 11 mm. PLEURAE: Multiple noncalcified bilateral pleural plaques measuring up to 11 mm in width. No evidence of pleur al effusion. MEDIASTINUM: There is good visualization of the great vessels of the middle mediastinum. No evidence of mediastin al or hilar adenopathy/mass. . CONCLUSION: 1. The study is negative for pulmonary embolism. 2. Scattered bilateral small noncalcified pleural plaques. Hansel Vargas MD on August 14, 2017 at 21:55 Board Certified Radiologist. This report was verified electronically.
[2017-08-14 23:09] VITALS: BP 143/75; PULSE 87; RESP 18; O2SAT 99
[2017-08-14] MEDS ORDERED: ACETAMINOPHEN 500 MG CPLT PO PRN (23:15)
[2017-08-14] MEDS ORDERED: ONDANSETRON HCL 4 MG/2 ML VIAL IV PUSH PRN (23:15)
[2017-08-14] MEDS ORDERED: SODIUM CHLORIDE 0.9% FLUSH 10 ML FLUSH IV FLUSH PRN (23:15)
[2017-08-14 23:38] LABS: TROPONIN I LESS THAN 0.02 NG/ML (0.02-0.05)
[2017-08-15 02:58] LABS: TROPONIN I LESS THAN 0.02 NG/ML (0.02-0.05)
[2017-08-15 03:35] VITALS: PULSE 74
[2017-08-15 04:33] VITALS: BP 119/60; PULSE 77; RESP 14; TEMP 97.7; O2SAT 98
[2017-08-15 08:00] VITALS: BP 145/77; PULSE 78; RESP 19; TEMP 96.5; O2SAT 97
[2017-08-15] MEDS ORDERED: SODIUM CHLORIDE 0.9% FLUSH 10 ML FLUSH IV FLUSH SCH (09:00)
[2017-08-15] MEDS ORDERED: RANO500 PO (11:13)
[2017-08-15] MEDS ORDERED: ISOS30TA17 PO (11:13)
[2017-08-15] MEDS ORDERED: ISOS20TA2 PO (11:21)
--- NOTE | 2017-08-15 11:27 | HHI.HP ---
HPI Primary Care Physician Unknown Chief Complaint Chest pain History of Present Illness This is a 82-year-old male that presents to ED for evaluation of chest discomfort. States he has chest pain every day and will easily have a 3-4 times every day. States that yesterday in the early evening the same discomfort occurred however the nitroglycerin did not help his discomfort. The pain eventually resolved within about an hour. Describes as a sharp discomfort. No shortness breath, nausea, or diaphoresis with this. Follows a [facility] and initially thought it was Dr. Jacques however he follows Dr. Pabon. Upon reviewing records he had a cardiac catheterization by Dr. Jacques December 2016 revealing mild coronary artery disease. Medical management has been utilized. Denies recent illness. Denies fevers or chills. Review of Systems General: Patient denies fevers, chills, and recent travel HEENT: Patient denies headache, sore throat, difficulty swallowing. Cardiovascular: Has the chest discomfort as mentioned above. Denies sensation of heart beating rapidly or irregularly. No syncope. Denies diaphoresis. Respiratory: Denies shortness of breath or inspirational chest discomfort. Denies coughing wheezing or hemoptysis. GI: Patient denies nausea, vomiting, diarrhea, abdominal pain, bloody stools. Musculoskeletal: Patient denies joint pain or edema. Denies calf pain or edema. Neurovascular: Patient denies numbness, tingling, weakness in extremities. Denies headache. Endocrine: Denies polyuria and polydipsia. Hematologic: Denies easy bruising. Skin: Denies rash or itching. Past Family Social History Allergies: Coded Allergies: No Known Allergies (Verified Adverse Reaction, Unknown, 08/14/17) Past Medical History Mild coronary artery disease, hypertension, diabetes, hyperlipidemia, CVA, past tobacco abuse however he quit smoking 2 months ago. Past Surgical History Cardiac catheterization without intervention December 2016. Tonsillectomy, bilateral cataracts, prostatectomy. Reported Medications Reported Meds & Active Scripts Active Metformin (Metformin HCl) 500 Mg Tab 500 Mg PO DAILY With a meal Nitroglycerin SL (Nitroglycerin) 0.4 Mg Subl 0.4 Mg SL DIRECTED PRN ONE TABLET UNDER THE TONGUE NEEDED FOR CHEST PAIN, MAY REPEAT EVERY FIVE MINUTES FOR A TOTAL OF 3 DOSES OR CALL 911 IF NO RELIEF Reported Isosorbide Dinitrate 30 Mg Tab PO DAILY Ranexa ER 12 HR (Ranolazine) 500 Mg Tab 500 Mg PO BID Enalapril (Enalapril Maleate) 20 Mg Tab 20 Mg PO BID Glipizide 5 Mg Tab 5 Mg PO DAILY Take 30 minutes before a meal Tamsulosin (Tamsulosin HCl) 0.4 Mg Cap 0.4 Mg PO HS Plavix (Clopidogrel Bisulfate) 75 Mg Tab 75 Mg PO DAILY Active Ordered Medications Current Medications Medications (Trade) Dose Ordered Sig/Annelise Route Start Time Stop Time Status Last Admin (NS Flush) 2 ml UNSCH PRN IV FLUSH 08/14/17 23:15 (NS Flush) 2 ml BID IV FLUSH 08/15/17 09:00 08/15/17 10:23 (Tylenol) 500 mg Q4H PRN PO 08/14/17 23:15 (Zofran Inj) 4 mg Q6H PRN IV PUSH 08/14/17 23:15 (Plavix) 75 mg DAILY PO 08/15/17 11:15 UNV (Flomax) 0.4 mg HS PO 08/15/17 21:00 UNV (Ranexa) 500 mg BID PO 08/15/17 21:00 UNV Family History There is family history of CAD. Social History He quit smoking 2 months ago but prior to that he smoked anywhere from 1-1 1/2 pack cigarettes daily for greater than 50 years. Denies alcohol or illicit drugs. He states he lives with his ex-. Physical Exam Vital Signs Vital Signs Date Time Temp Pulse Resp B/P (MAP) Pulse Ox O2 Delivery O2 Flow Rate FiO2 08/15/17 08:00 96.5 78 19 145/77 (99) 97 08/15/17 04:33 97.7 77 14 119/60 (79) 98 08/15/17 03:35 74 08/14/17 23:34 08/14/17 23:09 87 18 143/75 (97) 99 Room Air 08/14/17 19:55 84 18 144/67 (92) 98 Room Air 08/14/17 19:35 18 08/14/17 19:33 97.7 90 18 168/76 (106) 98 Physical Exam GENERAL: This is a well-nourished, well-developed patient, in no apparent distress. Patient speaks in clear complete sentences. Patient is pleasant. HEENT: Head is atraumatic and normocephalic. Neck is supple without lymphadenopathy and trachea is midline. No JVD or carotid bruits. CARDIOVASCULAR: Regular rate and rhythm without murmurs, gallops, or rubs. RESPIRATORY: Mild expiratory wheezing bilaterally. Breath sounds equal bilaterally. No rales, or rhonchi. Chest wall is nontender. No use of accessory muscles. GASTROINTESTINAL: Abdomen is nontender, nondistended. Abdomen soft. No obvious pulsatile mass or bruit. No CVA tenderness. Strong femoral pulses bilaterally. Normal bowel sounds in all quadrants. MUSCULOSKELETAL: Patient is moving upper and lower extremities freely. No calf tenderness or edema, no Homans sign. Strong pulses in upper and lower extremities. NEUROLOGICAL: Patient is alert and oriented. Cranial nerves 2-12 are grossly intact. No focal deficits and speech is clear. SKIN: No rash and turgor is normal. Laboratory Laboratory Tests Test 08/14/17 19:40 08/14/17 23:05 08/15/17 02:09 White Blood Count 6.5 Red Blood Count 4.47 Hemoglobin 11.9 Hematocrit 35.0 Mean Corpuscular Volume 78.3 Mean Corpuscular Hemoglobin 26.6 Mean Corpuscular Hemoglobin Concent 34.0 Red Cell Distribution Width 15.0 Platelet Count 199 Mean Platelet Volume 8.5 Neutrophils (%) (Auto) 73.3 Lymphocytes (%) (Auto) 18.6 Monocytes (%) (Auto) 5.5 Eosinophils (%) (Auto) 2.1 Basophils (%) (Auto) 0.5 Neutrophils # (Auto) 4.8 Lymphocytes # (Auto) 1.2 Monocytes # (Auto) 0.4 Eosinophils # (Auto) 0.1 Basophils # (Auto) 0.0 CBC Comment DIFF FINAL Differential Comment Prothrombin Time 10.7 Prothromb Time International Ratio 1.1 Activated Partial Thromboplast Time 28.5 D-Dimer Quantitative (PE/DVT) 0.42 Blood Urea Nitrogen 21 Creatinine 1.00 Random Glucose 109 Total Protein 6.7 Albumin 3.6 Calcium Level 8.6 Alkaline Phosphatase 106 Aspartate Amino Transf (AST/SGOT) 22 Alanine Aminotransferase (ALT/SGPT) 18 Total Bilirubin 0.8 Sodium Level 136 Potassium Level 4.1 Chloride Level 101 Carbon Dioxide Level 26.2 Anion Gap 9 Estimat Glomerular Filtration Rate 72 Total Creatine Kinase 200 147 131 Troponin I LESS THAN 0.02 LESS THAN 0.02 LESS THAN 0.02 B-Type Natriuretic Peptide 31 Creatine Kinase MB 6.9 5.8 Result Diagram: 08/14/17193908/14/171939 Imaging Last [address] Angiography 08/14/171929 Signed Impressions: Service Date/Time: Monday, August 14, 2017 21:16 - CONCLUSION: 1. The study is negative for pulmonary embolism. 2. Scattered bilateral small noncalcified pleural plaques. Hansel Vargas MD Chest X-Ray 08/14/171928 Signed Impressions: Service Date/Time: Monday, August 14, 2017 19:44 - CONCLUSION: The lungs are clear. Hansel Vargas MD Course EKGs are sinus rhythm without significant ST segment depressions or elevations. Caprini VTE Risk Assessment Caprini VTE Risk Assessment: Mod/High Risk (score >= 2) Caprini Risk Assessment Model Point Value = 1 Point Value = 2 Point Value = 3 Point Value = 5 Age 41-60 Minor surgery BMI > 25 kg/m2 Swollen legs Varicose veins or History of unexplained or recurrent spontaneous Oral contraceptives or hormone replacement Sepsis (< 1 month) Serious lung disease, including pneumonia (< 1 month) Abnormal pulmonary function Acute myocardial infarction Congestive heart failure (< 1 month) History of inflammatory bowel disease Medical patient at bed rest Age 61-74 Arthroscopic surgery Major open surgery (> 45 min) Laparoscopic surgery (> 45 min) Malignancy Confined to bed (> 72 hours) Immobilizing plaster cast Central venous access Age >= 75 History of VTE Family history of VTE Factor V Leiden Prothrombin [id number] Lupus anticoagulant Anticardiolipin antibodies Elevated serum homocysteine Heparin-induced thrombocytopenia Other congenital or acquired thrombophilia Stroke (< 1 month) Elective arthroplasty Hip, pelvis, or leg fracture Acute spinal cord injury (< 1 month) Prophylaxis Regimen Total Risk Factor Score Risk Level Prophylaxis Regimen 0-1 Low Early ambulation 2 Moderate Order ONE of the following: *Sequential Compression Device (SCD) *Heparin 5000 units SQ BID 3-4 Higher Order ONE of the following medications: *Heparin 5000 units SQ TID *Enoxaparin/Lovenox 40 mg SQ daily (WT < 150 kg, CrCl > 30 mL/min) *Enoxaparin/Lovenox 30 mg SQ daily (WT < 150 kg, CrCl > 10-29 mL/min) *Enoxaparin/Lovenox 30 mg SQ BID (WT < 150 kg, CrCl > 30 mL/min) AND/OR *Sequential Compression Device (SCD) 5 or more Highest Order ONE of the following medications: *Heparin 5000 units SQ TID (Preferred with Epidurals) *Enoxaparin/Lovenox 40 mg SQ daily (WT < 150 kg, CrCl > 30 mL/min) *Enoxaparin/Lovenox 30 mg SQ daily (WT < 150 kg, CrCl > 10-29 mL/min) *Enoxaparin/Lovenox 30 mg SQ BID (WT < 150 kg, CrCl > 30 mL/min) AND *Sequential Compression Device (SCD) Assessment and Plan Assessment and Plan * Chest pain: Patient has had serial cardiac enzymes and EKGs were ruling out purposes. He was seen by Dr. Johnson of cardiology and the chest pain center. Symptoms appear atypical. He states he has these several times a day every day. Same type of discomfort that he had when he had his heart catheterization December 2016 revealing mild coronary disease. I discussed this patient with Dr. Pabon is aware the patient and will follow up. Patient be discharged home at this time with instruction to follow-up with PCP and cardiology. Return to ED for interval issues. * Mild CAD: Continue current medications. Follow-up with cardiology. * Hypertension: Continue medications. * Hyperlipidemia: Needs discuss cholesterol management with his physician. Currently not on medication. * Diabetes: Resume medication at discharge. He will be on sliding scale insulin coverage while in chest pain center. Patient is stable at this time. He is agreeable to this plan. Avery Bolanos Aug 15, 2017 11:27
[2017-08-15] MEDS ORDERED: GLUCAGON 1 MG/ML VIAL OTHER PRN (11:30)
[2017-08-15] MEDS ORDERED: DEXTROSE 50% IN WATER 50 ML VIAL(D50) IV PUSH PRN (11:30)
--- NOTE | 2017-08-15 11:30 | HHI.DCPOC ---
Discharge Care Plan Diagnosis: (1) Chest pain (2) CAD (coronary artery disease) (3) Hypertension (4) Hyperlipidemia (5) DM (diabetes mellitus) Goals to Promote Your Health DISCUSS TAKING CHOLESTEROL MEDICATIONS WITH YOUR PHYSICIAN. * To prevent worsening of your condition and complications * To maintain your health at the optimal level Directions to Meet Your Goals Take your medications as prescribed Follow your dietary instruction Follow activity as directed Keep your appointments as scheduled Take your immunizations and boosters as scheduled If your symptoms worsen call your PCP, if no PCP go to Urgent Care Center or Emergency Room Smoking is Dangerous to Your Health. Avoid second hand smoke Call the 24-hour hour crisis hotline for domestic abuse at Avery Bolanos Aug 15, 2017 11:30
[2017-08-15] MEDS ORDERED: CLOPIDOGREL 75 MG TAB PO SCH (11:45)
[2017-08-15 12:00] VITALS: BP 126/74; PULSE 83; RESP 18; TEMP 97; O2SAT 99
[2017-08-15] MEDS ORDERED: INSULIN ASPART SUPPLEMENTAL SCALE SQ SCH (12:00)
--- NOTE | 2017-08-15 16:01 | EKG ---
Date Performed: 08/15/2017 Time Performed: 02:28:13 PTAGE: 82 years EKG: Sinus rhythm LOW QRS VOLTAGE IN PRECORDIAL LEADS LEFT ANTERIOR FASCICULAR BLOCK ANTEROSEPTAL MYOCARDIAL INFARCTIO N ABNORMAL ECG Since PREVIOUS TRACING , no significant change noted PREVIOUS TRACIN08/14/2017 23.07 DOCTOR: Ailyn Johnson Interpretating Date/Time 08/15/2017 16:00:45
--- NOTE | 2017-08-15 16:03 | EKG ---
Date Performed: 08/14/2017 Time Performed: 23:07:56 PTAGE: 82 years EKG: Sinus rhythm WITH SINUS ARRHYTHMIA LOW QRS VOLTAGE IN PRECORDIAL LEADS LEFT ANTERIOR FASCICULAR BLOCK SEPTAL MYOC ARDIAL INFARCTION ABNORMAL ECG Since PREVIOUS TRACING , no significant change noted PREVIOUS TRACIN08/14/2017 19.24 DOCTOR: Ailyn Johnson Interpretating Date/Time 08/15/2017 16:02:29
--- NOTE | 2017-08-15 16:04 | EKG ---
Date Performed: 08/14/2017 Time Performed: 19:24:19 PTAGE: 82 years EKG: Sinus rhythm MARKED LEFT AXIS DEVIATION LOW QRS VOLTAGE IN PRECORDIAL LEADS SEPTAL MYOCARDIAL INFARCTION ABNORMAL ECG Since PREVIOUS TRACING , no significant change noted DOCTOR: Ailyn Johnson Interpretating Date/Time 08/15/2017 16:04:15
[2017-08-15] MEDS ORDERED: TAMSULOSIN HCL 0.4 MG CAP PO SCH (21:00)
[2017-08-15] MEDS ORDERED: RANOLAZINE 500 MG EXTENDED RELEASE TAB PO SCH (21:00)
== END 2017-08-15 14:37 | disposition home or self-care (01) ==
LOC: NEPC 19:25 → NEDA 23:04 → NEPHCDU 23:47
PROVIDERS: ADMIT Internal Medicine Cardiovascular Disease; ATTEND Internal Medicine Cardiovascular Disease
DX: R07.9 Chest pain, unspecified (principal); I25.10 Atherosclerotic heart disease of native coronary artery without angina pectoris; I10 Essential (primary) hypertension; E78.5 Hyperlipidemia, unspecified; E11.9 Type 2 diabetes mellitus without complications; H91.90 Unspecified hearing loss, unspecified ear; Z79.84 Long term (current) use of oral hypoglycemic drugs; Z85.51 Personal history of malignant neoplasm of bladder; Z86.73 Personal history of transient ischemic attack (TIA), and cerebral infarction without residual deficits; Z87.891 Personal history of nicotine dependence
CPT/HCPCS: 71045; 71275; 80053; 82550; 82552; 82948; 83880; 84484; 85025; 85379; 85610; 85730; 93005; 99285; G0378; Q9967

== ENCOUNTER 2017-10-22 18:03 | Emergency (ER) | payer OTHER ==
[~2017-10-22] VITALS: Ht 177.8 cm; Wt 72.7 kg
[~2017-10-22 18:03] MED LIST changes: -AMLO10TA2 PO; -AMOX500C PO; +ISOS20TA2 PO; -LISI40TA PO; +RANO500 PO
[2017-10-22 18:05] VITALS: BP 184/81; PULSE 64; RESP 18; TEMP 97.8; O2SAT 96
[2017-10-22 18:11] VITALS: BP 184/81; PULSE 61; RESP 18; TEMP 97.8; O2SAT 98
[2017-10-22] MEDS ORDERED: PANT40TA3 PO (18:44)
[2017-10-22] MEDS ORDERED: ISOS30TA3 PO (18:44)
[2017-10-22] MEDS ORDERED: LISI40TA PO (18:44)
[2017-10-22] MEDS ORDERED: METF500T PO (18:44)
[2017-10-22] MEDS ORDERED: METO1TAB42 PO (18:44)
--- NOTE | 2017-10-22 18:47 | PD ---
HPI Chief Complaint: Cardiac Complaint Time Seen by Provider: 18:11 Travel History International Travel<30 days: No Contact w/Intl Traveler<30days: No Traveled to known affect area: No History of Present Illness HPI This patient has chronic chest pain. He gets anterior chest pain every day for over a year. Paramedics were called because he was having chest pain. They did an EKG and thought he was a STEMI alert. He arrives completely pain-free and feeling fine. Symptom severity was moderate but it has resolved. No alleviating factors. No exacerbating factors. PFSH Past Medical History Hx Anticoagulant Therapy: Yes Arthritis: No Asthma: No Autoimmune Disease: No Blood Disorders: No Heart Rhythm Problems: No Cancer: Yes (BLADDER CANCER) Cardiac Catheterization: No Cardiovascular Problems: Yes High Cholesterol: Yes Chemotherapy: No Chest Pain: Yes Congestive Heart Failure: No COPD: No Cerebrovascular Accident: Yes Diabetes: Yes Patient Takes Glucophage: No Diminished Hearing: Yes (Bilateral [place]) Endocrine: Yes Gastrointestinal Disorders: No GERD: No Genitourinary: No Headaches: Yes Hiatal Hernia: No Heparin Induced Thrombocytopen: No Hypertension: Yes (HTN) Immune Disorder: No Implanted Vascular Access Dvce: Yes Kidney Stones: No Musculoskeletal: No Neurologic: Yes Psychiatric: No Reproductive: No Respiratory: No Immunizations Current: Yes Migraines: No Radiation Therapy: No Renal Failure: No Seizures: No Sickle Cell Disease: No Sleep Apnea: No Thyroid Disease: No Ulcer: No Past Surgical History Abdominal Surgery: No AICD: No Arteriovenous Shunt: No Body Medical Devices: URINARY CATH WITH LEG BAG Cardiac Surgery: No Coronary Artery Bypass Graft: No Ear Surgery: No Endocrine Surgery: No Eye Surgery: Yes (BL CATARACT) Genitourinary Surgery: Yes (PROSTATECTOMY) Gynecologic Surgery: No Insulin Pump: No Joint Replacement: No Neurologic Surgery: No Oral Surgery: Yes (TONSILLECTOMY) Pacemaker: No Prostatectomy: Yes Thoracic Surgery: No Tonsillectomy: Yes Other Surgery: Yes (TONSILLECTOMY, BL CATARACT SURGERY) Family History Family Myocardial Infarction: Yes (father -SD at 60 Y/O) Social History Alcohol Use: No (QUIT) Tobacco Use: No Substance Use: No Allergies-Medications (Allergen,Severity, Reaction): Coded Allergies: No Known Allergies (Verified Adverse Reaction, Unknown, 08/14/17) Reported Meds & Prescriptions Reported Meds & Active Scripts Active Metformin (Metformin HCl) 500 Mg Tab 500 Mg PO DAILY With a meal Nitroglycerin SL (Nitroglycerin) 0.4 Mg Subl 0.4 Mg SL DIRECTED PRN ONE TABLET UNDER THE TONGUE NEEDED FOR CHEST PAIN, MAY REPEAT EVERY FIVE MINUTES FOR A TOTAL OF 3 DOSES OR CALL 911 IF NO RELIEF Reported Isosorbide Dinitrate 20 Mg Tab 30 Mg PO DAILY Ranexa ER 12 HR (Ranolazine) 500 Mg Tab 500 Mg PO BID Enalapril (Enalapril Maleate) 20 Mg Tab 20 Mg PO BID Glipizide 5 Mg Tab 5 Mg PO DAILY Take 30 minutes before a meal Tamsulosin (Tamsulosin HCl) 0.4 Mg Cap 0.4 Mg PO HS Plavix (Clopidogrel Bisulfate) 75 Mg Tab 75 Mg PO DAILY Review of Systems General / Constitutional: No: Fever Eyes: No: Visual changes HENT: No: Headaches Cardiovascular: Positive: Chest Pain or Discomfort Respiratory: No: Shortness of Breath Gastrointestinal: No: Abdominal Pain Genitourinary: No: Dysuria Musculoskeletal: No: Pain Skin: No Rash Neurologic: No: Weakness Psychiatric: No: Depression Endocrine: No: Polydipsia Hematologic/Lymphatic: No: Easy Bruising Physical Exam Narrative GENERAL: Well-nourished, well-developed patient in no apparent distress. SKIN: Focused skin assessment reveals no rash and nodules. Skin is Warm and dry. HEAD: Atraumatic. Normocephalic. EYES: Pupils equal and round. No scleral icterus. No injection or drainage. ENT: No nasal bleeding or discharge. Mucous membranes pink and moist. NECK: Trachea midline. No JVD. CARDIOVASCULAR: Regular rate and rhythm. No murmur appreciated. RESPIRATORY: No accessory muscle use. Clear to auscultation. Breath sounds equal bilaterally. GASTROINTESTINAL: Abdomen soft, non-tender, nondistended. Hepatic and splenic margins not palpable. MUSCULOSKELETAL: No obvious deformities. No clubbing. No cyanosis. No edema. NEUROLOGICAL: Awake and alert. No obvious cranial nerve deficits. Motor grossly within normal limits. Normal speech. PSYCHIATRIC: Appropriate mood and affect; insight and judgment normal. Data Data Last Documented VS Vital Signs Date Time Temp Pulse Resp B/P (MAP) Pulse Ox O2 Delivery O2 Flow Rate FiO2 10/22/17 18:11 97.8 61 18 184/81 (115) 98 Room Air MDM Medical Decision Making Medical Screen Exam Complete: Yes Emergency Medical Condition: Yes Medical Record Reviewed: Yes Differential Diagnosis Differential diagnosis includes SD, angina, pericarditis, pleurisy, GERD, anxiety. Narrative Course I have reviewed the patient's electronic medical record. Patient is a frequent visitor for chest pain. He had a chest pain center hospitalization 2 months ago. Due to the fact that he had a catheterization in December 2016 which showed only mild coronary disease and this pain is chronic, no further stress testing was done and he followed as an outpatient with his personal life insurance sales agent Dr. Pabon. Her EKG done here today shows no evidence of STEMI. I reviewed the paramedics EKG and I do not believe that was a STEMI either. He is in a sinus rhythm but not having acute ST elevation He received aspirin and nitro's by paramedics At this point I am ordering an initial cardiac workup to include EKG and chest x -ray and lab studies with cardiac enzymes I suspect that the same plan will be taken as done in the chest pain center 2 months ago. Namely to call and discuss with his life insurance sales agent about outpatient follow-up if his workup here is negative Diagnosis Primary Impression: Chronic chest pain Mc Ferris MD October 22, 2017 18:47
[2017-10-22 18:53] VITALS: PULSE 50; RESP 16; O2SAT 95
[2017-10-22] MEDS ORDERED: SODIUM CHLORIDE 0.9% FLUSH 10 ML FLUSH IVF PRN (19:00)
--- NOTE | 2017-10-22 19:01 | RADRPT ---
EXAM DATE/TIME: 10/22/2017 18:52 [facility] COMPARISON: CHEST SINGLE AP, August 14, 2017, 19:44. INDICATIONS : Stemi alert, chest pain. MEDICAL HISTORY : Cardiovascular disease. Cerebrovascular disease. Hypertension. SURGICAL HISTORY : None. ENCOUNTER: Initial ACUITY: 1 day PAIN SCORE: 0/10 LOCATION: Bilateral chest FINDINGS: A single view of the chest demonstrates the lungs to be symmetrically aerated without evidence of mas s, infiltrate or effusion. The cardiomediastinal contours are unremarkable. Osseous structures are intact. Degenerative changes and scoliosis. CONCLUSION: No acute disease. Kevin Storey MD on October 22, 2017 at 18:58 Board Certified Radiologist. This report was verified electronically.
[2017-10-22 19:07] LABS: AUTOMATED NEUTROPHIL # 4.9 TH/MM3 (1.8-7.7); BASOPHIL % 0.7 % (0.0-2.0); EOSINOPHIL # 0.2 TH/MM3 (0-0.4); EOSINOPHIL % 2.7 % (0.0-4.0); HEMATOCRIT 31.7 % (39.0-51.0); HEMOGLOBIN 10.4 GM/DL (13.0-17.0); LYMPH % 17.9 % (9.0-44.0); LYMPHOCYTE # 1.2 TH/MM3 (1.0-4.8); MEAN CELL VOLUME 78.2 FL (80.0-100.0); MEAN CORPUSCULAR HEMOGLOBIN 25.7 PG (27.0-34.0); MEAN CORPUSCULAR HGB CONC 32.8 % (32.0-36.0); MEAN PLATELET VOLUME 8.7 FL (7.0-11.0); MONO % 4.5 % (0.0-8.0); MONOCYTE # 0.3 TH/MM3 (0-0.9); NEUT % 74.2 % (16.0-70.0); PLATELET COUNT 164 TH/MM3 (150-450); RED BLOOD COUNT 4.06 MIL/MM3 (4.50-5.90); RED CELL DISTRIBUTION WIDTH 15.3 % (11.6-17.2); WHITE BLOOD COUNT 6.6 TH/MM3 (4.0-11.0)
[2017-10-22 19:24] LABS: INTERNATIONAL NORMALIZED RATIO 1.1 RATIO; PROTHROMBIN TIME - PATIENT 11.4 SEC (9.8-11.6)
[2017-10-22 19:27] LABS: BICARBONATE 25.3 MEQ/L (21.0-32.0); BLOOD UREA NITROGEN 11 MG/DL (7-18); CALCIUM 7.6 MG/DL (8.5-10.1); CHLORIDE 113 MEQ/L (98-107); CREATININE 0.75 MG/DL (0.60-1.30); GLOMERULAR FILTRATION RATE 100 ML/MIN (>89); GLUCOSE,RANDOM 181 MG/DL (74-106); SODIUM (NA) 145 MEQ/L (136-145)
[2017-10-22 19:31] LABS: TROPONIN I LESS THAN 0.02 NG/ML (0.02-0.05)
--- NOTE | 2017-10-22 20:02 | PD ---
Data Data Last Documented VS Vital Signs Date Time Temp Pulse Resp B/P (MAP) Pulse Ox O2 Delivery O2 Flow Rate FiO2 10/22/17 20:18 10/22/17 18:53 50 16 95 Room Air 10/22/17 18:11 97.8 Orders Orders Electrocardiogram (10/22/17 18:47) Basic Metabolic Panel (Bmp) (10/22/17 18:47) Ckmb (Isoenzyme) Profile (10/22/17 18:47) Complete Blood Count With Diff (10/22/17 18:47) Prothrombin Time / Inr (Pt) (10/22/17 18:47) Act Partial Throm Time (Ptt) (10/22/17 18:47) Troponin I (10/22/17 18:47) Chest, Single Ap (10/22/17 18:47) Ecg Monitoring (10/22/17 18:47) Iv Access Insert/Monitor (10/22/17 18:47) Oximetry (10/22/17 18:47) Oxygen Administration (10/22/17 18:47) Sodium Chloride 0.9% Flush (Ns Flush) (10/22/17 19:00) Ed Discharge Order (10/22/17 20:19) Labs Laboratory Tests Test 10/22/17 18:55 White Blood Count 6.6 TH/MM3 Red Blood Count 4.06 MIL/MM3 Hemoglobin 10.4 GM/DL Hematocrit 31.7 % Mean Corpuscular Volume 78.2 FL Mean Corpuscular Hemoglobin 25.7 PG Mean Corpuscular Hemoglobin Concent 32.8 % Red Cell Distribution Width 15.3 % Platelet Count 164 TH/MM3 Mean Platelet Volume 8.7 FL Neutrophils (%) (Auto) 74.2 % Lymphocytes (%) (Auto) 17.9 % Monocytes (%) (Auto) 4.5 % Eosinophils (%) (Auto) 2.7 % Basophils (%) (Auto) 0.7 % Neutrophils # (Auto) 4.9 TH/MM3 Lymphocytes # (Auto) 1.2 TH/MM3 Monocytes # (Auto) 0.3 TH/MM3 Eosinophils # (Auto) 0.2 TH/MM3 Basophils # (Auto) 0.0 TH/MM3 CBC Comment DIFF FINAL Differential Comment Prothrombin Time 11.4 SEC Prothromb Time International Ratio 1.1 RATIO Activated Partial Thromboplast Time 28.6 SEC Blood Urea Nitrogen 11 MG/DL Creatinine 0.75 MG/DL Random Glucose 181 MG/DL Calcium Level 7.6 MG/DL Sodium Level 145 MEQ/L Potassium Level 3.4 MEQ/L Chloride Level 113 MEQ/L Carbon Dioxide Level 25.3 MEQ/L Anion Gap 7 MEQ/L Estimat Glomerular Filtration Rate 100 ML/MIN Total Creatine Kinase 60 U/L Troponin I LESS THAN 0.02 NG/ML MDM Medical Record Reviewed: Yes Supervised Visit with SONA: No Narrative Course CBC & BMP Diagram 10/22/17 18:55 Calcium Level 7.6 L Troponin is less than 0.02 EKG shows sinus rhythm with a rate of 67 without acute ischemic injury change/ pattern The patient underwent cath by Dr. Jacques in December 2016 which revealed mild luminal irregularities without occlusive disease. Patient was seen in the chest pain center approximately 1-1/2 months prior. Enzymes were negative x 3. Stress test was deferred after discussing it with Dr. Pabon. Today we see similar presentation. Initial enzyme troponin is negative and the EKG shows no evidence of acute ischemic injury. Patient will be discharged home with plan to follow-up with Dr. Pabon. Patient is agreeable with plan and understands it as well. D/w Dr Hope. We'll add amlodipine. Script provided. Diagnosis Primary Impression: Chronic chest pain Additional Impression: Hypertension Qualified Codes: I10 - Essential (primary) hypertension Referrals: Corbin Quigley MD 2 days Med/Other Pt SpecificInfo: Prescription(s) given Scripts Amlodipine (Amlodipine) 5 Mg Tab 5 MG PO DAILY for Blood Pressure Management, #15 TAB 0 Refills Prov: Aristeo Jacques MD 10/22/17 Disposition: DISCHARGE HOME Condition: Stable Aristeo Jacques MD October 22, 2017 20:02
[2017-10-22] MEDS ORDERED: AMLO5TAB2 PO (20:13)
--- NOTE | 2017-10-23 20:49 | EKG ---
Date Performed: 10/22/2017 Time Performed: 18:07:35 PTAGE: 82 years EKG: Sinus rhythm INTRAVENTRICULAR CONDUCTION DELAY CONSIDER ANEROSEPTAL MYOCARDIAL INFARCTION-age Undeterminate. ABNO RMAL ECG PREVIOUS TRACING : 08/15/2017 02.28.13 DOCTOR: Suleman Marie Interpretating Date/Time 10/23/2017 20:48:10
== END 2017-10-22 20:43 | disposition home or self-care (01) ==
LOC: NEPC 18:03
DX: R07.89 Other chest pain (principal); I10 Essential (primary) hypertension; R94.31 Abnormal electrocardiogram [ECG] [EKG]; E11.9 Type 2 diabetes mellitus without complications; E78.00 Pure hypercholesterolemia, unspecified; Z79.01 Long term (current) use of anticoagulants; Z79.84 Long term (current) use of oral hypoglycemic drugs; Z86.79 Personal history of other diseases of the circulatory system; Z86.69 Personal history of other diseases of the nervous system and sense organs
CPT/HCPCS: 71045; 80048; 82550; 84484; 85025; 85610; 85730; 93005; 99285

== ENCOUNTER 2017-11-12 16:35 | Observation (INO) | payer OTHER ==
[~2017-11-12] VITALS: Ht 165.1 cm; Wt 64.0 kg
[~2017-11-12 16:35] MED LIST changes: +AMLO5TAB2 PO; -ENAL20TA PO; -GLIP5TAB8 PO; -ISOS20TA2 PO; +ISOS30TA3 PO; +LISI40TA PO; +METO1TAB42 PO; +PANT40TA3 PO; -RANO500 PO; -TAMS0.4C4 PO
[2017-11-12 16:42] VITALS: BP 146/85; PULSE 55; RESP 18; O2SAT 98
[2017-11-12] MEDS ORDERED: SODIUM CHLOR 0.9% 1000 ML INJ 1,000 ML IV ONE (17:08)
[2017-11-12] MEDS ORDERED: ONDANSETRON ODT 4 MG TAB PO ONE (17:15)
[2017-11-12] MEDS ORDERED: ACETAMINOPHEN 325 MG TAB PO ONE (17:15)
[2017-11-12] MEDS ORDERED: SODIUM CHLORIDE 0.9% FLUSH 10 ML FLUSH IVF PRN (17:15)
[2017-11-12 17:28] VITALS: RESP 16; O2SAT 98
[2017-11-12 17:52] LABS: AUTOMATED NEUTROPHIL # 3.4 TH/MM3 (1.8-7.7); BASOPHIL % 0.6 % (0.0-2.0); EOSINOPHIL # 0.1 TH/MM3 (0-0.4); EOSINOPHIL % 2.8 % (0.0-4.0); HEMATOCRIT 33.6 % (39.0-51.0); HEMOGLOBIN 11.1 GM/DL (13.0-17.0); LYMPH % 23.6 % (9.0-44.0); LYMPHOCYTE # 1.2 TH/MM3 (1.0-4.8); MEAN CELL VOLUME 78.7 FL (80.0-100.0); MEAN PLATELET VOLUME 8.4 FL (7.0-11.0); MONOCYTE # 0.2 TH/MM3 (0-0.9); PLATELET COUNT 211 TH/MM3 (150-450); RED BLOOD COUNT 4.27 MIL/MM3 (4.50-5.90); RED CELL DISTRIBUTION WIDTH 15.2 % (11.6-17.2)
--- NOTE | 2017-11-12 17:54 | RADRPT ---
EXAM DATE: 11/12/2017 5:51 PM EDT AGE/SEX: 82 years / Male INDICATIONS: Confused, unsteady, right arm numbness CLINICAL DATA: This is the patient's initial encounter. Patient reports that signs and symptoms have been present for 1 day and indicates a pain score of 0/10. MEDICAL/SURGICAL HISTORY: Cardiovascular disease. Cerebrovascular disease. Hypertension. Prostate ctomy. RADIATION DOSE: 55.61 CTDI (mGy) COMPARISON: [facility], CT BRAIN W/O CONTRAST, 04/25/2017. . TECHNIQUE: CT of the head without contrast. Using automated exposure control and adjustment of the mA and/or kV according to patient size, radiation dose was kept as low as reasonably achievable to ob tain optimal diagnostic quality images. FINDINGS: Cerebrum: The ventricles are normal for age. No evidence of midline shift, mass lesion, hemorrhage or acute infarction. No extraaxial fluid collections are seen. Extensive chronic low-attenuation aga in seen in the periventricular white matter of both cerebral hemispheres. Posterior Fossa: The cerebellum and brainstem are intact. The 4th ventricle is midline. The cerebe llopontine angle is unremarkable. Extracranial: The visualized portion of the orbits is intact. Skull: The calvaria is intact. No evidence of skull fracture. CONCLUSION: 1. No acute intracranial abnormality demonstrated. 2. Chronic white matter changes are again noted. Electronically signed by: Leodan Menendez MD 11/12/2017 5:53 PM EDT
[2017-11-12 17:59] LABS: INTERNATIONAL NORMALIZED RATIO 1.1 RATIO; PROTHROMBIN TIME - PATIENT 10.9 SEC (9.8-11.6)
[2017-11-12 18:09] LABS: ALBUMIN 3.4 GM/DL (3.4-5.0); AST (GOT) 15 U/L (15-37); BICARBONATE 27.4 MEQ/L (21.0-32.0); BLOOD UREA NITROGEN 15 MG/DL (7-18); CALCIUM 8.9 MG/DL (8.5-10.1); CHLORIDE 104 MEQ/L (98-107); CREATININE 0.95 MG/DL (0.60-1.30); GLOMERULAR FILTRATION RATE 76 ML/MIN (>89); GLUCOSE,RANDOM 163 MG/DL (74-106); SODIUM (NA) 141 MEQ/L (136-145)
[2017-11-12 18:14] LABS: ALKALINE PHOSPHATASE 97 U/L (45-117); ALT (GPT) 22 U/L (12-78); TOTAL BILIRUBIN ADULT 0.4 MG/DL (0.2-1.0); TOTAL PROTEIN 6.8 GM/DL (6.4-8.2); TROPONIN I LESS THAN 0.02 NG/ML (0.02-0.05)
--- NOTE | 2017-11-12 18:49 | PD ---
HPI Chief Complaint: Altered Mental Status Time Seen by Provider: 16:44 Travel History International Travel<30 days: No Contact w/Intl Traveler<30days: No Traveled to known affect area: No History of Present Illness HPI Patient is an 82-year-old male who comes in due to altered mental status. Per neighbors, he was seen walking house and they found him slumped over. Patient complains of a frontal headache. He also says that he had weakness in his arms. His ex- reports he is still talking funny, but seems to be more alert currently. He denies any chest pain or shortness of breath. He knows where he is and who he is, but he does not know the date. He has been here multiple times in the past due to chest pain issues. His ex- says that he has had "mini strokes a few months ago." Severity is mild to moderate. 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[place]) Endocrine: Yes Gastrointestinal Disorders: No GERD: No Genitourinary: No Headaches: Yes Hiatal Hernia: No Heparin Induced Thrombocytopen: No Hypertension: Yes (HTN) Immune Disorder: No Implanted Vascular Access Dvce: Yes Kidney Stones: No Musculoskeletal: No Neurologic: Yes Psychiatric: No Reproductive: No Respiratory: No Immunizations Current: Yes Migraines: No Radiation Therapy: No Renal Failure: No Seizures: No Sickle Cell Disease: No Sleep Apnea: No Thyroid Disease: No Ulcer: No Past Surgical History Abdominal Surgery: No AICD: No Arteriovenous Shunt: No Body Medical Devices: URINARY CATH WITH LEG BAG Cardiac Surgery: No Coronary Artery Bypass Graft: No Ear Surgery: No Endocrine Surgery: No Eye Surgery: Yes (BL CATARACT) Genitourinary Surgery: Yes (PROSTATECTOMY) Gynecologic Surgery: No Insulin Pump: No Joint Replacement: No Neurologic Surgery: No Oral Surgery: Yes (TONSILLECTOMY) Pacemaker: No Prostatectomy: Yes Thoracic Surgery: No Tonsillectomy: Yes Other Surgery: Yes (TONSILLECTOMY, BL CATARACT SURGERY) Family History Family Myocardial Infarction: Yes (father -[place] at 60 Y/O) Social History Alcohol Use: No (QUIT) Tobacco Use: No Substance Use: No Allergies-Medications (Allergen,Severity, Reaction): Coded Allergies: No Known Allergies (Verified Adverse Reaction, Unknown, 11/12/17) Reported Meds & Prescriptions Reported Meds & Active Scripts Active Nitroglycerin SL (Nitroglycerin) 0.4 Mg Subl 0.4 Mg SL DIRECTED PRN ONE TABLET UNDER THE TONGUE NEEDED FOR CHEST PAIN, MAY REPEAT EVERY FIVE MINUTES FOR A TOTAL OF 3 DOSES OR CALL 911 IF NO RELIEF Reported Metformin (Metformin HCl) 500 Mg Tab 500 Mg PO BID Metoprolol Succinate ER 24 HR (Metoprolol Succinate) 25 Mg Tab 25 Mg PO DAILY Pantoprazole (Pantoprazole Sodium) 40 Mg Tab 40 Mg PO DAILY Lisinopril 40 Mg Tab 40 Mg PO DAILY Isosorbide Mononitrate ER (Isosorbide Mononitrate) 30 Mg Theresa 30 Mg PO DAILY Plavix (Clopidogrel Bisulfate) 75 Mg Tab 75 Mg PO DAILY Review of Systems Except as stated in HPI: all other systems reviewed are Neg General / Constitutional: No: Fever, Chills Eyes: No: Blurred Vision HENT: Positive: Headaches Cardiovascular: No: Chest Pain or Discomfort Respiratory: No: Shortness of Breath Gastrointestinal: No: Nausea, Vomiting Musculoskeletal: No: Myalgias Skin: No Rash, No Change in Pigmentation Neurologic: Positive: Weakness, No: Dizziness Physical Exam Narrative GENERAL: Awake and alert, no acute distress. SKIN: Focused skin assessment warm/dry. No wounds or signs of infection. HEAD: Atraumatic. Normocephalic. EYES: Pupils equal and round. No scleral icterus. Extraocular movements intact. ENT: Mucous membranes pink and moist. NECK: Trachea midline. No JVD. CARDIOVASCULAR: Regular rate and rhythm. No murmur appreciated. RESPIRATORY: No accessory muscle use. Clear to auscultation. Breath sounds equal bilaterally. GASTROINTESTINAL: Abdomen soft, non-tender, nondistended. MUSCULOSKELETAL: No obvious deformities. No clubbing. No cyanosis. No edema. NEUROLOGICAL: Awake and alert. No obvious cranial nerve deficits. Motor grossly within normal limits. Normal speech. PSYCHIATRIC: Appropriate mood and affect; insight and judgment normal. Data Data Last Documented VS Vital Signs Date Time Temp Pulse Resp B/P (MAP) Pulse Ox O2 Delivery O2 Flow Rate FiO2 11/12/17 17:28 16 98 Room Air 11/12/17 16:42 55 146/85 (105) Orders Orders Electrocardiogram (11/12/17 17:08) Complete Blood Count With Diff (11/12/17 17:08) Comprehensive Metabolic Panel (11/12/17 17:08) Troponin I (11/12/17 17:08) Act Partial Throm Time (Ptt) (11/12/17 17:08) Prothrombin Time / Inr (Pt) (11/12/17 17:08) Ct Brain W/O Iv Contrast(Rout) (11/12/17 17:08) Ct Cerv Spine W/O Contrast (11/12/17 17:08) Ecg Monitoring (11/12/17 17:08) Iv Access Insert/Monitor (11/12/17 17:08) Oximetry (11/12/17 17:08) Sodium Chloride 0.9% Flush (Ns Flush) (11/12/17 17:15) Sodium Chlor 0.9% 1000 Ml Inj (Ns 1000 M (11/12/17 17:08) Acetaminophen (Tylenol) (11/12/17 17:15) Ondansetron Odt (Zofran Odt) (11/12/17 17:15) Labs Laboratory Tests Test 11/12/17 17:20 White Blood Count 5.0 TH/MM3 Red Blood Count 4.27 MIL/MM3 Hemoglobin 11.1 GM/DL Hematocrit 33.6 % Mean Corpuscular Volume 78.7 FL Mean Corpuscular Hemoglobin 26.0 PG Mean Corpuscular Hemoglobin Concent 33.0 % Red Cell Distribution Width 15.2 % Platelet Count 211 TH/MM3 Mean Platelet Volume 8.4 FL Neutrophils (%) (Auto) 68.0 % Lymphocytes (%) (Auto) 23.6 % Monocytes (%) (Auto) 5.0 % Eosinophils (%) (Auto) 2.8 % Basophils (%) (Auto) 0.6 % Neutrophils # (Auto) 3.4 TH/MM3 Lymphocytes # (Auto) 1.2 TH/MM3 Monocytes # (Auto) 0.2 TH/MM3 Eosinophils # (Auto) 0.1 TH/MM3 Basophils # (Auto) 0.0 TH/MM3 CBC Comment DIFF FINAL Differential Comment Prothrombin Time 10.9 SEC Prothromb Time International Ratio 1.1 RATIO Activated Partial Thromboplast Time 30.2 SEC Blood Urea Nitrogen 15 MG/DL Creatinine 0.95 MG/DL Random Glucose 163 MG/DL Total Protein 6.8 GM/DL Albumin 3.4 GM/DL Calcium Level 8.9 MG/DL Alkaline Phosphatase 97 U/L Aspartate Amino Transf (AST/SGOT) 15 U/L Alanine Aminotransferase (ALT/SGPT) 22 U/L Total Bilirubin 0.4 MG/DL Sodium Level 141 MEQ/L Potassium Level 3.8 MEQ/L Chloride Level 104 MEQ/L Carbon Dioxide Level 27.4 MEQ/L Anion Gap 10 MEQ/L Estimat Glomerular Filtration Rate 76 ML/MIN Troponin I LESS THAN 0.02 NG/ML MDM Medical Decision Making Medical Screen Exam Complete: Yes Emergency Medical Condition: Yes Medical Record Reviewed: Yes Interpretation(s) ECG shows sinus bradycardia at a rate of 49, left anterior fascicular block. Differential Diagnosis Stroke versus TIA versus electrolyte abnormality versus dehydration Narrative Course Patient is an 82-year-old male who comes in after an episode of altered mental status. There are no focal deficits on neurologic exam. IV established, labs sent. Labs show no acute abnormalities. CT head performed shows no acute abnormalities. Last [address] 11/12/17 1708 Signed Impressions: CONCLUSION: 1. No acute intracranial abnormality demonstrated. 2. Chronic white matter changes are again noted. Patient will be placed in observation for possible TIA. Diagnosis Primary Impression: Altered mental status Qualified Codes: R41.82 - Altered mental status, unspecified Admitting Information Admitting Physician Requests: Observation Bre Johnson MD Nov 12, 2017 18:49
[2017-11-12] MEDS: SODIUM CHLOR 0.9% 1000 ML INJ 1,000 ML IV SCH (19:08)
--- NOTE | 2017-11-12 19:10 | HHI.HP ---
[facility] Kerri Glasgow MD Admission Diagnosis AMS vs TIA Diagnoses: (1) Encephalopathy Diagnosis: Principal (2) Dehydration Diagnosis: Principal (3) HTN (hypertension) Diagnosis: Principal (4) DM (diabetes mellitus) Diagnosis: Principal Travel History International Travel<30 Days: No Contact w/Intl Traveler <30 Da: No Traveled to Known Affected Are: No History of Present Illness This is an 82-year-old male with a PMH of Bladder CA, HTN, h/o CVA/TIA and DM who is brought to the ER secondary to AMS. Per report, pt was found lying on the ground in front of a neighbor's house, was noted to have slurred speech and confusion at that time. Pt initially unable to provide much history, now able to tell me he wasn't feeling well earlier today, states "left arm gave out, then right arm gave out and I was walking all funny". He says he decided to go to his neighbor's house, but he wasn't home, at which time he was found by another neighbor from across the street. Unclear if pt had syncopal event. Currently awake, alert, oriented to person and place, not time. No slurred speech or facial droop. On arrival, BP 146/85, HR 55, O2 sat 98% on RA, Afebrile. CBC at baseline. Chemistry essentially unremarkable except for GFR 76. Troponin negative. INR 1.1. CT Head with no acute findings. CT C-spine no acute fracture, pending official read. Review of Systems Except as stated in HPI: all other systems reviewed are Neg ROS: 14 point review of systems otherwise negative. Past Family Social History Past Medical History PMH: Bladder CA, HTN, h/o CVA/TIA and DM Past Surgical History PAST SURGICAL HISTORY: Cataract Surgery, Prostatectomy, Tonsillectomy Allergies: Coded Allergies: No Known Allergies (Verified Adverse Reaction, Unknown, 11/12/17) Family History PAST FAMILY HISTORY: Reviewed, positive for CAD. Social History PAST SOCIAL HISTORY: Negative for alcohol, tobacco or drugs. Physical Exam Vital Signs Vital Signs Date Time Temp Pulse Resp B/P (MAP) Pulse Ox O2 Delivery O2 Flow Rate FiO2 11/12/17 17:28 16 98 Room Air 11/12/17 16:42 55 18 146/85 (105) 98 Physical Exam PE: GENERAL: Pleasant elderly white male in no acute distress. Friend at bedside. HEENT: PERRLA, EOMI. No scleral icterus or conjunctival pallor. No lid lag or facial droop. CARDIOVASCULAR: Regular rate and rhythm. No obvious murmurs to auscultation. No chest tenderness to palpation. RESPIRATORY: No obvious rhonchi or wheezing. Clear to auscultation. Breath sounds equal bilaterally. GASTROINTESTINAL: Abdomen soft, non-tender, nondistended. BS normal. MUSCULOSKELETAL: Extremities without clubbing, cyanosis, or edema. No obvious deformities. NEUROLOGICAL: Awake, alert and oriented x4. Strength 4/5 RUE, 5/5 all other extremities, unclear if baseline. Moving both upper and lower extremities spontaneously. Laboratory Laboratory Tests Test 11/12/17 17:20 White Blood Count 5.0 Red Blood Count 4.27 Hemoglobin 11.1 Hematocrit 33.6 Mean Corpuscular Volume 78.7 Mean Corpuscular Hemoglobin 26.0 Mean Corpuscular Hemoglobin Concent 33.0 Red Cell Distribution Width 15.2 Platelet Count 211 Mean Platelet Volume 8.4 Neutrophils (%) (Auto) 68.0 Lymphocytes (%) (Auto) 23.6 Monocytes (%) (Auto) 5.0 Eosinophils (%) (Auto) 2.8 Basophils (%) (Auto) 0.6 Neutrophils # (Auto) 3.4 Lymphocytes # (Auto) 1.2 Monocytes # (Auto) 0.2 Eosinophils # (Auto) 0.1 Basophils # (Auto) 0.0 CBC Comment DIFF FINAL Differential Comment Prothrombin Time 10.9 Prothromb Time International Ratio 1.1 Activated Partial Thromboplast Time 30.2 Blood Urea Nitrogen 15 Creatinine 0.95 Random Glucose 163 Total Protein 6.8 Albumin 3.4 Calcium Level 8.9 Alkaline Phosphatase 97 Aspartate Amino Transf (AST/SGOT) 15 Alanine Aminotransferase (ALT/SGPT) 22 Total Bilirubin 0.4 Sodium Level 141 Potassium Level 3.8 Chloride Level 104 Carbon Dioxide Level 27.4 Anion Gap 10 Estimat Glomerular Filtration Rate 76 Troponin I LESS THAN 0.02 Result Diagram: 11/12/17 1720 11/12/17 172 Caprini VTE Risk Assessment Caprini VTE Risk Assessment: No/Low Risk (score <= 1) Caprini Risk Assessment Model Point Value = 1 Point Value = 2 Point Value = 3 Point Value = 5 Age 41-60 Minor surgery BMI > 25 kg/m2 Swollen legs Varicose veins or History of unexplained or recurrent spontaneous Oral contraceptives or hormone replacement Sepsis (< 1 month) Serious lung disease, including pneumonia (< 1 month) Abnormal pulmonary function Acute myocardial infarction Congestive heart failure (< 1 month) History of inflammatory bowel disease Medical patient at bed rest Age 61-74 Arthroscopic surgery Major open surgery (> 45 min) Laparoscopic surgery (> 45 min) Malignancy Confined to bed (> 72 hours) Immobilizing plaster cast Central venous access Age >= 75 History of VTE Family history of VTE Factor V Leiden Prothrombin [id number] Lupus anticoagulant Anticardiolipin antibodies Elevated serum homocysteine Heparin-induced thrombocytopenia Other congenital or acquired thrombophilia Stroke (< 1 month) Elective arthroplasty Hip, pelvis, or leg fracture Acute spinal cord injury (< 1 month) Prophylaxis Regimen Total Risk Factor Score Risk Level Prophylaxis Regimen 0-1 Low Early ambulation 2 Moderate Order ONE of the following: *Sequential Compression Device (SCD) *Heparin 5000 units SQ BID 3-4 Higher Order ONE of the following medications: *Heparin 5000 units SQ TID *Enoxaparin/Lovenox 40 mg SQ daily (WT < 150 kg, CrCl > 30 mL/min) *Enoxaparin/Lovenox 30 mg SQ daily (WT < 150 kg, CrCl > 10-29 mL/min) *Enoxaparin/Lovenox 30 mg SQ BID (WT < 150 kg, CrCl > 30 mL/min) AND/OR *Sequential Compression Device (SCD) 5 or more Highest Order ONE of the following medications: *Heparin 5000 units SQ TID (Preferred with Epidurals) *Enoxaparin/Lovenox 40 mg SQ daily (WT < 150 kg, CrCl > 30 mL/min) *Enoxaparin/Lovenox 30 mg SQ daily (WT < 150 kg, CrCl > 10-29 mL/min) *Enoxaparin/Lovenox 30 mg SQ BID (WT < 150 kg, CrCl > 30 mL/min) AND *Sequential Compression Device (SCD) Assessment and Plan Problem List: (1) Encephalopathy ICD Code: G93.40 - Encephalopathy, unspecified (2) Dehydration ICD Code: E86.0 - Dehydration (3) HTN (hypertension) ICD Code: I10 - Essential (primary) hypertension (4) DM (diabetes mellitus) ICD Code: E11.9 - Type 2 diabetes mellitus without complications Assessment and Plan A/P: 1. Encephalopathy: Unclear etiology, found lying on ground in front of neighbor's house, states "not feeling well" prior to event, w/ weakness of right arm then weakness of left arm, awake/alert, oriented to person/place, however not time, in addition to mild weakness RUE, unclear if baseline. ?TIA. CT Head w/ no acute findings, images reviewed by me. Check MRI Brain to eval for underlying CVA. Neuro checks. Check U/a to eval for underlying UTI. PT for eval/tx 2. Dehydration: GFR 76, Check U/a as above, IVF for hydration, repeat labs in am, monitor I/O 3. HTN: Hold BP meds to allow for permissive HTN in case of acute CVA, monitor BP. 4. DM: Sliding scale w/ Accu-Cheks. Hold Metformin. 5. DVT Prophylaxis: SCD/Teds 6. Social work for d/c planning as needed. 7. Case discussed w/ ER physician at length, labs/records/imaging reviewed by me. Licha Hopkins MD Nov 12, 2017 19:10
[2017-11-12] MEDS ORDERED: DEXTROSE 50% IN WATER 50 ML VIAL(D50) IV PUSH PRN (19:15)
[2017-11-12] MEDS ORDERED: BISACODYL 10 MG SUPP RECTAL PRN (19:15)
[2017-11-12] MEDS ORDERED: SODIUM CHLORIDE 0.9% FLUSH 10 ML FLUSH IV FLUSH PRN (19:15)
[2017-11-12] MEDS ORDERED: METOCLOPRAMIDE HCL 10 MG/2 ML VIAL IV PUSH PRN (19:15)
[2017-11-12] MEDS ORDERED: ACETAMINOPHEN/HYDROcodone 325 MG/5 MG TAB PO PRN (19:15)
[2017-11-12] MEDS ORDERED: MAGNESIUM HYDROXIDE SUSP 30 ML CUP PO PRN (19:15)
[2017-11-12] MEDS ORDERED: ACETAMINOPHEN/HYDROcodone 325 MG/10 MG TAB PO PRN (19:15)
[2017-11-12] MEDS ORDERED: SENNOSIDES 8.6 MG TAB PO PRN (19:15)
[2017-11-12] MEDS ORDERED: ACETAMINOPHEN 325 MG TAB PO PRN (19:15)
[2017-11-12] MEDS ORDERED: LACTULOSE SYRUP 20 GM/30 ML CUP PO PRN (19:15)
[2017-11-12] MEDS ORDERED: GLUCAGON 1 MG/ML VIAL OTHER PRN (19:15)
--- NOTE | 2017-11-12 20:11 | RADRPT ---
EXAM DATE: 11/12/2017 5:53 PM EDT AGE/SEX: 82 years / Male INDICATIONS: Confused, unsteady, right arm numbness CLINICAL DATA: This is the patient's initial encounter. Patient reports that signs and symptoms have been present for 1 day and indicates a pain score of 0/10. MEDICAL/SURGICAL HISTORY: Cardiovascular disease. Cerebrovascular disease. Hypertension. Pros tatectomy. RADIATION DOSE: 18.79 CTDI (mGy) COMPARISON: No prior [facility] exams available for comparison. TECHNIQUE: Contiguous axial images were obtained using helical multirow detector technique. The vol umetric data was post-processed with multiplanar reconstruction in oblique axial, sagittal, and coron al planes. Using automated exposure control and adjustment of the mA and/or kV according to patient s ize, radiation dose was kept as low as reasonably achievable to obtain optimal diagnostic quality silvio ges. FINDINGS: There is no acute fracture or prevertebral soft tissue swelling. Diffuse cervical spondylosis is note d. Moderate bilateral foraminal narrowing is noted at all levels from C3 through T1. No significant s erica stenosis is noted. C2-3: The bony spinal canal is normal in size. No evidence of disc bulge or herniation. The neural foramina are bilaterally patent. C3-4: The bony spinal canal is normal in size. No evidence of disc bulge or herniation. Moderate bi lateral foraminal narrowing is noted. C4-5: The bony spinal canal is normal in size. No evidence of disc bulge or herniation. Moderate bi lateral foraminal narrowing is noted. C5-6: The bony spinal canal is normal in size. No evidence of disc bulge or herniation. Moderate bi lateral foraminal narrowing is noted. C6-7: The bony spinal canal is normal in size. No evidence of disc bulge or herniation. Moderate bi lateral foraminal narrowing is noted. C7-T1: The bony spinal canal is normal in size. No evidence of disc bulge or herniation. Moderate b ilateral foraminal narrowing is noted. CONCLUSION: 1. Diffuse cervical spondylosis with moderate bilateral foraminal narrowing from C3 through T1. 2. No acute fracture or prevertebral soft tissue swelling. 3. No spinal stenosis. Electronically signed by: Ernie Phillip MD 11/12/2017 8:10 PM EDT
[2017-11-12] MEDS: INSULIN ASPART SUPPLEMENTAL SCALE SQ SCH (21:00)
[2017-11-12] MEDS: SODIUM CHLORIDE 0.9% FLUSH 10 ML FLUSH IV FLUSH SCH (21:00)
[2017-11-12] MEDS: DOCUSATE SODIUM 50 MG/SENNA 8.6 MG TAB PO SCH (21:00)
[2017-11-12 21:12] VITALS: BP 136/68; PULSE 54; RESP 16; TEMP 97.7; O2SAT 97
[2017-11-13] VITALS (10 sets, daily range): BP systolic 142–195; BP diastolic 68–86; PULSE 49–72; RESP 15–20; TEMP 97.1–98.4; O2SAT 95–100
[2017-11-13] MEDS: SODIUM CHLOR 0.9% 1000 ML INJ 1,000 ML IV SCH ×2 (05:08→15:15)
[2017-11-13] MEDS: INSULIN ASPART SUPPLEMENTAL SCALE SQ SCH ×4 (09:05→22:07)
[2017-11-13] MEDS: PANTOPRAZOLE SOD 40 MG DELAYED RELEASE TAB PO SCH (09:35)
[2017-11-13] MEDS: ASPIRIN EC 81 MG TABEC PO SCH (09:35)
[2017-11-13] MEDS: SODIUM CHLORIDE 0.9% FLUSH 10 ML FLUSH IV FLUSH SCH ×2 (09:35→21:00)
[2017-11-13] MEDS: CLOPIDOGREL 75 MG TAB PO SCH (09:35)
[2017-11-13] MEDS: DOCUSATE SODIUM 50 MG/SENNA 8.6 MG TAB PO SCH ×2 (09:35→21:47)
[2017-11-13] MEDS: PRAVASTATIN SOD 40 MG TAB PO SCH (09:35)
--- NOTE | 2017-11-13 09:44 | EKG ---
Date Performed: 11/12/2017 Time Performed: 17:35:19 PTAGE: 82 years EKG: SINUS BRADYCARDIA LEFT ANTERIOR FASCICULAR BLOCK Since the previous tracing, no significant change noted ABNORMAL ECG PREVIOUS TRACING : 10/22/2017 18.07 DOCTOR: Marcos De La Garza Interpretating Date/Time 11/13/2017 09:43:48
[2017-11-13 10:59] LABS: AUTOMATED NEUTROPHIL # 3.2 TH/MM3 (1.8-7.7); BASOPHIL % 0.8 % (0.0-2.0); EOSINOPHIL # 0.1 TH/MM3 (0-0.4); EOSINOPHIL % 2.2 % (0.0-4.0); HEMOGLOBIN 11.4 GM/DL (13.0-17.0); LYMPH % 17.5 % (9.0-44.0); LYMPHOCYTE # 0.7 TH/MM3 (1.0-4.8); MEAN CELL VOLUME 78.5 FL (80.0-100.0); MEAN CORPUSCULAR HEMOGLOBIN 26.2 PG (27.0-34.0); MEAN CORPUSCULAR HGB CONC 33.4 % (32.0-36.0); MEAN PLATELET VOLUME 8.5 FL (7.0-11.0); MONO % 3.9 % (0.0-8.0); MONOCYTE # 0.2 TH/MM3 (0-0.9); NEUT % 75.6 % (16.0-70.0); PLATELET COUNT 172 TH/MM3 (150-450); RED BLOOD COUNT 4.33 MIL/MM3 (4.50-5.90); RED CELL DISTRIBUTION WIDTH 15.5 % (11.6-17.2); WHITE BLOOD COUNT 4.2 TH/MM3 (4.0-11.0)
[2017-11-13 11:30] LABS: ALBUMIN 3.4 GM/DL (3.4-5.0); AST (GOT) 17 U/L (15-37); BICARBONATE 27.6 MEQ/L (21.0-32.0); BLOOD UREA NITROGEN 12 MG/DL (7-18); CALCIUM 8.4 MG/DL (8.5-10.1); CHLORIDE 106 MEQ/L (98-107); CREATININE 0.91 MG/DL (0.60-1.30); GLOMERULAR FILTRATION RATE 80 ML/MIN (>89); GLUCOSE,RANDOM 205 MG/DL (74-106); SODIUM (NA) 142 MEQ/L (136-145)
[2017-11-13 11:32] LABS: ALT (GPT) 24 U/L (12-78); CHOLESTEROL 94 MG/DL (120-200); TRIGLYCERIDES 110 MG/DL (42-150)
[2017-11-13 11:36] LABS: ALKALINE PHOSPHATASE 100 U/L (45-117); CHOLESTEROL/ HDL RATIO 2.85 RATIO; HDL CHOLESTEROL 32.9 MG/DL (40.0-60.0); LDL CHOLESTEROL 39 MG/DL (0-99); TOTAL BILIRUBIN ADULT 0.5 MG/DL (0.2-1.0); TOTAL PROTEIN 6.5 GM/DL (6.4-8.2); TROPONIN I LESS THAN 0.02 NG/ML (0.02-0.05)
--- NOTE | 2017-11-13 13:18 | HHI.PR ---
Subjective Remarks Follow up encephalopathy, dehydration. Patient states that he feels better today. He felt weak yesterday. No chest pain, dyspnea. No nausea, vomiting. Objective Vitals Vital Signs Date Time Temp Pulse Resp B/P (MAP) Pulse Ox O2 Delivery O2 Flow Rate FiO2 11/13/17 12:54 70 11/13/17 11:16 97.8 55 20 190/81 (117) 100 11/13/17 08:26 97.1 50 16 159/74 (102) 96 11/13/17 07:35 70 11/13/17 04:25 55 15 144/68 (93) 98 11/13/17 00:02 97.4 51 15 142/80 (100) 97 11/12/17 21:12 97.7 54 16 136/68 (90) 97 11/12/17 17:28 16 98 Room Air 11/12/17 16:42 55 18 146/85 (105) 98 I/O 11/12/17 11/12/17 11/12/17 11/13/17 11/13/17 11/13/17 07:00 15:00 23:00 07:00 15:00 23:00 # Voids 2 Result Diagram: 11/13/17 1035 11/13/17 1035 Imaging Last Impressions Head CT 11/12/171707 Signed Impressions: CONCLUSION: 1. No acute intracranial abnormality demonstrated. 2. Chronic white matter changes are again noted. Cervical Spine CT 11/12/171707 Signed Impressions: CONCLUSION: 1. Diffuse cervical spondylosis with moderate bilateral foraminal narrowing fr om C3 through T1. 2. No acute fracture or prevertebral soft tissue swelling. 3. No spinal stenosis. Objective Remarks General: Elderly male in no acute distress. Heart: Regular rate and rhythm. No murmur. Lungs: Clear to auscultation bilaterally. No wheezes, rales, or rhonchi. Breathing is nonlabored. Abdomen: Soft, nontender, nondistended. Extremities: No lower extremity edema. Psych: Alert, confused. Not oriented to date, city. Neuro: Normal speech. No focal deficits noted. Procedures None Urinary Catheter: No Vascular Central Line Catheter: No A/P Problem List: (1) Encephalopathy ICD Code: G93.40 - Encephalopathy, unspecified (2) Dehydration ICD Code: E86.0 - Dehydration (3) HTN (hypertension) ICD Code: I10 - Essential (primary) hypertension (4) DM (diabetes mellitus) ICD Code: E11.9 - Type 2 diabetes mellitus without complications Assessment and Plan 1. Encephalopathy: Uncertain etiology. Patient presented with altered mental status. He was found lying on the ground in front of his neighbors house. CT of the head is negative. Brain MRI is pending. Neurochecks. Continue physical therapy. 2. Dehydration: Continue IV fluids. 3. Hypertension: Allow permissive hypertension pending results of stroke workup. 4. Diabetes mellitus: Monitor Accu-Cheks and cover with sliding scale insulin. Hold metformin. 5. DVT prophylaxis: ARLYN Arias. Discharge Planning The patient will need SNF placement. Case management to assist with discharge planning. Mc Abbott MD Nov 13, 2017 13:18
--- NOTE | 2017-11-13 14:01 | RADRPT ---
EXAM DATE: 11/13/2017 1:09 PM EDT AGE/SEX: 82 years / Male INDICATIONS: . Frequent falls. Syncope. TIA CLINICAL DATA: This is the patient's subsequent encounter. Patient reports that signs and symptoms h ave been present for 2 days and indicates a pain score of 0/10. MEDICAL/SURGICAL HISTORY: Hypertension. Diabetes mellitus type II. Carcinoma, bladder. CVA Tonsillectomy. Prostatectomy. cataracts COMPARISON: [facility], CT BRAIN W/O CONTRAST, 11/12/2017. [facility], MRI BRAIN W/O CONTRAST, 04/26/2017. [facility], MRI BRAIN W/O CONTRAST, 11/15/2015. . TECHNIQUE: Multiplanar, multisequence examination of the brain was performed without contrast. FINDINGS: Cerebrum: There is mild generalized atrophy. Ventricles are normal in size given the degree of atrop hy. Asymmetry of the right ventricle is stable compared to the prior studies. No evidence of midline shift, mass lesion, hemorrhage or acute infarction. No extraaxial fluid collections are seen. The pituitary gland and suprasellar cistern are normal in configuration. White Matter: There is moderate to severe periventricular white matter signal change. Posterior Fossa: The cerebellum and brainstem demonstrate no acute finding. The 4th ventricle is mid line. The cerebellopontine angle is unremarkable. The cerebellar tonsils are normal in position. Diffusion Imaging: No focal areas of restricted diffusion are seen. No evidence of acute infarction . Extracranial: There is stable mucous retention cyst in the inferior left maxillary antrum. CONCLUSION: 1. No acute intracranial abnormality is identified. There are no findings to indicate recent ischemi a. 2. Chronic findings include generalized atrophy and moderate to severe white matter changes josie villeda of chronic microvascular ischemia. Electronically signed by: Leodan Valente MD 11/13/2017 2:00 PM EDT
[2017-11-13 18:50] LABS: HEMOGLOBIN A1C 7.7 % (4.3-6.0)
[2017-11-13 19:38] LABS: BILIRUBIN, URINE NEG (NEG); BLOOD, URINE NEG (NEG); GLUCOSE,URINE 300 mg/dL (NEG); HYALINE CAST, URINE 2 /lpf (RARE); KETONE, URINE NEG (NEG); MUCUS URINE FEW /lpf (OCC); NITRITE,URINE NEG (NEG); PH, URINE 6.5 (5.0-8.5); URINE COLOR YELLOW (YELLW/STRAW); URINE LEUKOCYTE ESTERASE NEG (NEG)
[2017-11-13] MEDS ORDERED: cloNIDine HCL 0.1 MG TAB PO ONE (21:00)
[2017-11-14] VITALS (10 sets, daily range): BP systolic 172–206; BP diastolic 74–102; PULSE 46–70; RESP 16–20; TEMP 95.7–98.4; O2SAT 93–100
[2017-11-14] MEDS: SODIUM CHLOR 0.9% 1000 ML INJ 1,000 ML IV SCH ×2 (01:24→11:12)
[2017-11-14 07:09] LABS: BICARBONATE 26.6 MEQ/L (21.0-32.0); CALCIUM 8.3 MG/DL (8.5-10.1); CREATININE 0.88 MG/DL (0.60-1.30)
[2017-11-14] MEDS: SODIUM CHLORIDE 0.9% FLUSH 10 ML FLUSH IV FLUSH SCH ×2 (09:00→20:41)
[2017-11-14] MEDS: DOCUSATE SODIUM 50 MG/SENNA 8.6 MG TAB PO SCH ×2 (09:11→20:41)
[2017-11-14] MEDS: CLOPIDOGREL 75 MG TAB PO SCH (09:11)
[2017-11-14] MEDS: PRAVASTATIN SOD 40 MG TAB PO SCH (09:11)
[2017-11-14] MEDS: PANTOPRAZOLE SOD 40 MG DELAYED RELEASE TAB PO SCH (09:11)
[2017-11-14] MEDS: ASPIRIN EC 81 MG TABEC PO SCH (09:11)
[2017-11-14] MEDS: INSULIN ASPART SUPPLEMENTAL SCALE SQ SCH ×4 (09:41→20:41)
--- NOTE | 2017-11-14 12:49 | RADRPT ---
EXAM DATE: 11/14/2017 12:33 PM EDT AGE/SEX: 82 years / Male INDICATIONS: Slurred speech. Altered mental status. History of Cerebrovascular accident. CLINICAL DATA: This is the patient's initial encounter. Patient reports that signs and symptoms have been present for 2 days and indicates a pain score of 0/10. MEDICAL/SURGICAL HISTORY: Stroke. Anticoagulant therapy. Hypertension. Hearing loss. TIA. Tons illectomy. Prostatectomy. Cataract extraction. Diabetes. Bladder cancer. COMPARISON: No prior exams available for comparison. VELOCITY PARAMETERS: ICA/CCA Ratio: Right 0.7 , Left 0.9 ICA: Right 82.3 cm/sec, Left 101.6 cm/sec CCA: Right 119.9 cm/sec, Left 110.3 cm/sec ECA: Right 64.7 cm/sec, Left 79.0 cm/sec Vertebral: Right 74.2 cm/sec antegrade, Left 60.0 cm/sec antegrade FINDINGS: Right Carotid: No significant stenosis is visualized. The waveforms are within normal limits. Left Carotid: No significant stenosis is visualized. The waveforms are within normal limits. Other: None. CONCLUSION: No significant stenosis. Electronically signed by: Leodan Mathew MD 11/14/2017 12:47 PM EDT
[2017-11-14] MEDS: LISINOPRIL 20 MG TAB PO SCH (13:04)
[2017-11-14] MEDS: METOPROLOL SUCCINATE 25 MG EXTENDED RELEASE TAB PO SCH (13:04)
--- NOTE | 2017-11-14 15:41 | HHI.PR ---
Subjective Remarks Follow-up encephalopathy. Patient denies chest pain, headache, dyspnea, vision changes. States that he feels better today. Friend at the bedside states that he is more alert and talkative. Objective Vitals Vital Signs Date Time Temp Pulse Resp B/P (MAP) Pulse Ox O2 Delivery O2 Flow Rate FiO2 11/14/17 13:31 70 11/14/17 12:00 96.5 59 20 175/74 (107) 97 11/14/17 08:44 96.1 54 20 172/80 (110) 99 11/14/17 07:48 46 11/14/17 03:29 98.4 64 16 178/76 (110) 100 11/14/17 00:33 97.7 59 16 176/79 (111) 99 11/13/17 23:00 72 11/13/17 20:16 98.4 68 17 195/86 (122) 95 11/13/17 15:50 49 I/O 11/13/17 11/13/17 11/13/17 11/14/17 11/14/17 11/14/17 07:00 15:00 23:00 07:00 15:00 23:00 Intake Total 240 ml 460 ml 1000 ml Output Total 600 ml 1200 ml Balance -360 ml 460 ml -200 ml Intake Oral 240 ml 460 ml IV Total 1000 ml Output Urine Total 600 ml 1200 ml # Voids 4 1 2 # Bowel Movements 0 Result Diagram: 11/13/17 1035 11/14/17 0445 Imaging Last Impressions Carotid Artery Ultrasound 11/14/17 0000 Signed Impressions: CONCLUSION: No significant stenosis. Brain MRI 11/13/17 0000 Signed Impressions: CONCLUSION: 1. No acute intracranial abnormality is identified. There are no findings to i ndicate recent ischemia. 2. Chronic findings include generalized atrophy and moderate to severe white m atter changes characteristic of chronic microvascular ischemia. Head CT 11/12/171707 Signed Impressions: CONCLUSION: 1. No acute intracranial abnormality demonstrated. 2. Chronic white matter changes are again noted. Cervical Spine CT 11/12/171707 Signed Impressions: CONCLUSION: 1. Diffuse cervical spondylosis with moderate bilateral foraminal narrowing fr om C3 through T1. 2. No acute fracture or prevertebral soft tissue swelling. 3. No spinal stenosis. Objective Remarks General: Elderly male in no acute distress. Heart: Regular rate and rhythm. No murmur. Lungs: Clear to auscultation bilaterally. No wheezes, rales, or rhonchi. Breathing is nonlabored. Abdomen: Soft, nontender, nondistended. Extremities: No lower extremity edema. Psych: Alert, confused. Neuro: Normal speech. No focal deficits noted. Procedures None Urinary Catheter: No Vascular Central Line Catheter: No A/P Problem List: (1) Encephalopathy ICD Code: G93.40 - Encephalopathy, unspecified (2) Dehydration ICD Code: E86.0 - Dehydration (3) HTN (hypertension) ICD Code: I10 - Essential (primary) hypertension (4) DM (diabetes mellitus) ICD Code: E11.9 - Type 2 diabetes mellitus without complications Assessment and Plan 1. Encephalopathy: Uncertain etiology. Patient presented with altered mental status. He was found lying on the ground in front of his neighbors house. Possible syncope versus TIA. CT of the head is negative. Brain MRI is negative. Neurochecks. Continue physical therapy. Carotid artery ultrasound is negative. Neurology consultation is pending. Echocardiogram ordered. 2. Dehydration: Continue IV fluids. 3. Hypertension: Resume home medications. 4. Diabetes mellitus: Monitor Accu-Cheks and cover with sliding scale insulin. Hold metformin. 5. DVT prophylaxis: ARLYN Arias. Discharge Planning The patient will need SNF placement. Case management to assist with discharge planning. Mc Abbott MD Nov 14, 2017 15:41
[2017-11-14] MEDS ORDERED: cloNIDine HCL 0.1 MG TAB PO PRN (17:15)
[2017-11-14] MEDS ORDERED: amLODIPine BESYLATE 5 MG TAB PO ONE (17:15)
[2017-11-14] MEDS ORDERED: ENALAPRILAT 1.25 MG/ML VIAL IV PUSH PRN (17:15)
--- NOTE | 2017-11-14 18:06 | ECHRPT ---
Indication: CVA/TIA CONCLUSIONS The left ventricular systolic function is normal with an estimated ejection fraction in the range of 55-60%. Mild concentric left ventricular hypertrophy. [id number] mitral valve regurgitation. There is trace tricuspid valve regurgitation. Mild pulmonary valve regurgitation. BP: 175 / 74 HR: 70 Rhythm: Sinus MEASUREMENTS (Male / Female) Normal Values Technical Quality:Fair 2D ECHO LV Diastolic Diameter PLAX 4.1 cm 4.2 - 5.9 / 3.9 - 5.3 cm LV Systolic Diameter PLAX 2.9 cm IVS Diastolic Thickness 1.1 cm 0.6 - 1.0 / 0.6 - 0.9 cm LVPW Diastolic Thickness 1.1 cm 0.6 - 1.0 / 0.6 - 0.9 cm LV Relative Wall Thickness 0.6 RV Internal Dim ED PLAX 2.8 cm LVOT Diameter 2.5 cm Aortic Root Diameter 3.4 cm LA Systolic Diameter LX 3.7 cm 3.0 - 4.0 / 2.7 - 3.8 cm M-MODE AV Cusp Separation MM 1.7 cm DOPPLER AV Peak Velocity 135.0 cm/s AV Peak Gradient 7.3 mmHg AV Mean Gradient 4.0 mmHg AV Velocity Time Integral 30.0 cm LVOT Peak Velocity 63.9 cm/s LVOT Peak Gradient 1.6 mmHg LVOT Velocity Time Integral 12.3 cm AV Area Cont Eq vti 2.0 cm AV Area Cont Eq pk 2.3 cm Mitral E Point Velocity 107.0 cm/s Mitral A Point Velocity 127.0 cm/s Mitral E to A Ratio 0.8 LV E' Lateral Velocity 7.7 cm/s Mitral E to LV E' Lateral Ratio 13.9 LV E' Septal Velocity 4.2 cm/s Mitral E to LV E' Septal Ratio 25.5 PV Peak Velocity 53.4 cm/s PV Peak Gradient 1.1 mmHg FINDINGS LEFT VENTRICLE Normal left ventricular size. Mild concentric left ventricular hypertrophy. The left ventricular systolic function is normal with an estimated ejection fraction in the range of 55-60%. No regional wall motion abnormalities are present. RIGHT VENTRICLE Grossly normal LEFT ATRIUM The left atrial size is normal. RIGHT ATRIUM The right atrial size is normal. ATRIAL SEPTUM Normal atrial septal thickness. AORTA The aortic root and proximal ascending aorta are normal in size on limited imaging. MITRAL VALVE Structurally normal mitral valve. Mild mitral annular calcification. No mitral valve stenosis. [id number] mitral valve regurgitation. AORTIC VALVE Probable trileaflet No aortic valve regurgitation. No aortic valve stenosis. TRICUSPID VALVE Grossly normal There is trace tricuspid valve regurgitation. No tricuspid valve stenosis. PULMONARY VALVE Mild pulmonary valve regurgitation. The pulmonary valve is not well visualized. VESSELS The inferior vena cava is normal in size. PERICARDIUM No pericardial effusion. Rick Jacques DO (Electronically Signed) Final Date:14 November 2017 18:05
[2017-11-15] VITALS (10 sets, daily range): BP systolic 145–198; BP diastolic 65–85; PULSE 46–63; RESP 18–20; TEMP 96.6–98.1; O2SAT 95–99
[2017-11-15] MEDS: INSULIN ASPART SUPPLEMENTAL SCALE SQ SCH ×4 (08:02→21:47)
[2017-11-15] MEDS: CLOPIDOGREL 75 MG TAB PO SCH (08:46)
[2017-11-15] MEDS: PANTOPRAZOLE SOD 40 MG DELAYED RELEASE TAB PO SCH (08:46)
[2017-11-15] MEDS: LISINOPRIL 20 MG TAB PO SCH (08:46)
[2017-11-15] MEDS: METOPROLOL SUCCINATE 25 MG EXTENDED RELEASE TAB PO SCH (08:46)
[2017-11-15] MEDS: ISOSORBIDE MONONITRATE 30 MG CR TAB (IMDUR) PO SCH (08:46)
[2017-11-15] MEDS: ASPIRIN EC 81 MG TABEC PO SCH (08:46)
[2017-11-15] MEDS: PRAVASTATIN SOD 40 MG TAB PO SCH (08:46)
[2017-11-15] MEDS: SODIUM CHLORIDE 0.9% FLUSH 10 ML FLUSH IV FLUSH SCH ×2 (08:47→21:45)
[2017-11-15] MEDS: DOCUSATE SODIUM 50 MG/SENNA 8.6 MG TAB PO SCH ×2 (08:47→21:45)
[2017-11-15] MEDS: amLODIPine BESYLATE 5 MG TAB PO SCH (08:47)
--- NOTE | 2017-11-15 09:25 | PD.CONS ---
History of Present Illness Service Neurology Consult Requested By Medical for confusion Primary Care Physician Kerri Glasgow MD History of Present Illness 82-year-old male with a PMH of Bladder CA, HTN, h/o CVA/TIA and DM who is brought to the ER secondary to AMS. He has some slurred speech confusion. Lives with a son. Patient admits to poor memory close friends at bedside states that son watches over the patient. He does not have elevated blood pressure. Denies any head or neck injury visual loss focal weakness. CT Head with no acute findings. CT C-spine no acute fracture, pending official read. Review of Systems Except as stated in HPI: all other systems reviewed are Neg; rest as per HPI Past Family Social History Past Medical History PMH: Bladder CA, HTN, h/o CVA/TIA and DM Past Surgical History PAST SURGICAL HISTORY: Cataract Surgery, Prostatectomy, Tonsillectomy Allergies: Coded Allergies: No Known Allergies (Verified Adverse Reaction, Unknown, 11/12/17) Family History PAST FAMILY HISTORY: Reviewed, positive for CAD. Social History PAST SOCIAL HISTORY: Negative for alcohol, tobacco or drugs. Review of Systems All other ROS: ROS reviewed as documented in chart Past Family Social History Allergies: Coded Allergies: No Known Allergies (Verified Adverse Reaction, Unknown, 11/12/17) Active Ordered Medications Current Medications Medications (Trade) Dose Ordered Sig/Annelise Route Start Time Stop Time Status Last Admin (D50w (Vial) Inj) 50 ml UNSCH PRN IV PUSH 11/12/17 19:15 (Glucagon Inj) 1 mg UNSCH PRN OTHER 11/12/17 19:15 (NovoLOG SUPPLEMENTAL SCALE) 1 ACHS SLIDING SCALE SQ 11/12/17 21:00 11/14/17 09:41 (NS Flush) 2 ml UNSCH PRN IV FLUSH 11/12/17 19:15 11/14/17 17:26 (NS Flush) 2 ml BID IV FLUSH 11/12/17 21:00 11/15/17 08:47 (Reglan Inj) 5 mg Q6H PRN IV PUSH 11/12/17 19:15 (Tylenol) 650 mg Q6H PRN PO 11/12/17 19:15 (Tolar 5-325 Mg) 1 tab Q4H PRN PO 11/12/17 19:15 (Tolar 10-325 Mg) 1 tab Q4H PRN PO 11/12/17 19:15 (Sarai-Colace) 1 tab BID PO 11/12/17 21:00 11/14/17 09:11 (Milk Of Magnesia Liq) 30 ml Q12H PRN PO 11/12/17 19:15 (Senokot) 17.2 mg Q12H PRN PO 11/12/17 19:15 (Dulcolax Supp) 10 mg DAILY PRN RECTAL 11/12/17 19:15 (Lactulose Liq) 30 ml DAILY PRN PO 11/12/17 19:15 (Plavix) 75 mg DAILY PO 11/13/17 09:00 11/15/17 08:46 (Protonix) 40 mg DAILY PO 11/13/17 09:00 11/15/17 08:46 (Ecotrin Ec) 81 mg DAILY PO 11/13/17 09:00 11/15/17 08:46 (Pravachol) 40 mg DAILY PO 11/13/17 09:00 11/15/17 08:46 (Imdur) 30 mg DAILY PO 11/15/17 09:00 11/15/17 08:46 (Toprol Xl) 25 mg DAILY PO 11/14/17 11:30 11/15/17 08:46 (Prinivil) 40 mg DAILY PO 11/14/17 12:00 11/15/17 08:46 (Catapres) 0.1 mg Q6H PRN PO 11/14/17 17:15 (Vasotec Inj) 1.25 mg Q6H PRN IV PUSH 11/14/17 17:15 11/14/17 17:26 (Norvasc) 5 mg DAILY PO 11/15/17 09:00 11/15/17 08:47 Exam I&O / VS 11/15/17 11/15/17 11/16/17 14:59 22:59 06:59 Output Total 1000 ml Balance -1000 ml Output Urine Total 1000 ml Vital Signs Date Time Temp Pulse Resp B/P (MAP) Pulse Ox O2 Delivery O2 Flow Rate FiO2 11/15/17 07:34 98.1 59 18 178/78 (111) 97 11/15/17 04:00 53 18 180/84 (116) 98 11/15/17 00:00 50 18 166/78 (107) 99 11/14/17 18:46 56 18 181/85 (117) 96 11/14/17 17:36 57 11/14/17 17:14 Manual Cuff/Auscultation 11/14/17 17:13 206/102 (136) 11/14/17 16:00 95.7 56 20 203/89 (127) 93 192/86 (121) 11/14/17 13:31 70 11/14/17 12:00 96.5 59 20 175/74 (107) 97 General: Alert and Oriented, No acute distress Respiratory: Non-labored respirations Cardiology: Normal rate Musculoskeletal: ROM Neurologic: Alert Psychiatric: Cooperative Exam Comments Awake alert oriented 2 not to date impaired short-term memory pleasant, neck supple no temporal tenderness visual sharp full pupils 2 mm sluggishly reactive no facial asymmetry tongue midline no pronator drift does have mild bilateral calf atrophy reflex symmetric no clonus plantarflex, reduced pinprick stocking distribution, response gait not assessed secondary to fall risk Review/Management Diagnosis/Plan: (1) Encephalopathy ICD Codes: G93.40 - Encephalopathy, unspecified Status: Acute Plan: Suspect hypertensive encephalopathy; left MCA TIA cannot be excluded MRI brain scan no acute stroke Carotid ultrasound no significant vaso-occlusive disease Recommendations Plavix Lipid blood pressure control, diabetic control Follow B12 TSH level PT eval Discharge planning from neurologic standpoint outpatient follow-up He should not drive and have continued supervision from his son as it appears he likely has some level of underlying dementia or cognitive impairment (2) Dementia ICD Codes: F03.90 - Unspecified dementia without behavioral disturbance Status: Chronic Plan: Suspect underlying cognitive impairment/ dementia of Alzheimer's type (3) Accelerated hypertension ICD Codes: I10 - Accelerated hypertension Status: Acute (4) HTN (hypertension) ICD Codes: I10 - Essential (primary) hypertension Status: Chronic Problem Qualifiers (1) Dementia: (2) HTN (hypertension): Qualified Codes: I10 - Essential (primary) hypertension Luiz Knott MD Nov 15, 2017 09:25
[2017-11-15] MEDS ORDERED: NOVOLOGSS SQ (12:59)
[2017-11-15] MEDS ORDERED: AMLO5 PO (12:59)
[2017-11-15] MEDS ORDERED: ECASA81 PO (12:59)
[2017-11-15] MEDS ORDERED: PRAV40TA PO (12:59)
--- NOTE | 2017-11-15 13:00 | HHI.DCPOC ---
Discharge Care Plan Diagnosis: (1) Hyperlipidemia (2) DM (diabetes mellitus) (3) Chest pain (4) CAD (coronary artery disease) (5) TIA (transient ischemic attack) (6) Hypertension (7) Encephalopathy Goals to Promote Your Health * To prevent worsening of your condition and complications * To maintain your health at the optimal level Directions to Meet Your Goals Take your medications as prescribed Follow your dietary instruction Follow activity as directed Keep your appointments as scheduled Take your immunizations and boosters as scheduled If your symptoms worsen call your PCP, if no PCP go to Urgent Care Center or Emergency Room Smoking is Dangerous to Your Health. Avoid second hand smoke Call the 24-hour hour crisis hotline for domestic abuse at Mc Abbott MD Nov 15, 2017 13:00
--- NOTE | 2017-11-15 13:03 | HHI.DS ---
cc: Kerri Glasgow MD Discharge Summary Admission Date Nov 12, 2017 at 19:00 Discharge Date: Nov 15, 2017 Admitting Diagnosis AMS vs TIA (1) Encephalopathy ICD Code: G93.40 - Encephalopathy, unspecified Status: Acute (2) Dehydration ICD Code: E86.0 - Dehydration (3) HTN (hypertension) ICD Code: I10 - Essential (primary) hypertension Status: Chronic (4) DM (diabetes mellitus) ICD Code: E11.9 - Type 2 diabetes mellitus without complications Procedures None Brief History - From Admission This is an 82-year-old male with a PMH of Bladder CA, HTN, h/o CVA/TIA and DM who is brought to the ER secondary to AMS. Per report, pt was found lying on the ground in front of a neighbor's house, was noted to have slurred speech and confusion at that time. Pt initially unable to provide much history, now able to tell me he wasn't feeling well earlier today, states "left arm gave out, then right arm gave out and I was walking all funny". He says he decided to go to his neighbor's house, but he wasn't home, at which time he was found by another neighbor from across the street. Unclear if pt had syncopal event. Currently awake, alert, oriented to person and place, not time. No slurred speech or facial droop. On arrival, BP 146/85, HR 55, O2 sat 98% on RA, Afebrile. CBC at baseline. Chemistry essentially unremarkable except for GFR 76. Troponin negative. INR 1.1. CT Head with no acute findings. CT C-spine no acute fracture, pending official read. CBC/BMP: 11/13/17 1035 11/14/17 0445 Significant Findings Laboratory Tests Test 11/12/17 17:20 11/13/17 00:13 11/13/17 10:35 11/13/17 18:55 Red Blood Count 4.27 MIL/MM3 (4.50-5.90) 4.33 MIL/MM3 (4.50-5.90) Hemoglobin 11.1 GM/DL (13.0-17.0) 11.4 GM/DL (13.0-17.0) Hematocrit 33.6 % (39.0-51.0) 34.0 % (39.0-51.0) Mean Corpuscular Volume 78.7 FL (80.0-100.0) 78.5 FL (80.0-100.0) Mean Corpuscular Hemoglobin 26.0 PG (27.0-34.0) 26.2 PG (27.0-34.0) Activated Partial Thromboplast Time 30.2 SEC (24.3-30.1) Random Glucose 163 MG/DL (74-106) 205 MG/DL (74-106) Estimat Glomerular Filtration Rate 76 ML/MIN (>89) 80 ML/MIN (>89) Troponin I LESS THAN 0.02 NG/ML LESS THAN 0.02 NG/ML LESS THAN 0.02 NG/ML Neutrophils (%) (Auto) 75.6 % (16.0-70.0) Lymphocytes # (Auto) 0.7 TH/MM3 (1.0-4.8) Calcium Level 8.4 MG/DL (8.5-10.1) Hemoglobin A1c 7.7 % (4.3-6.0) Cholesterol Level 94 MG/DL (120-200) HDL Cholesterol 32.9 MG/DL (40.0-60.0) Urine Glucose (UA) 300 mg/dL (NEG) Urine Mucus FEW /lpf (OCC) Test 11/14/17 04:45 11/15/17 11:27 Random Glucose 161 MG/DL (74-106) Calcium Level 8.3 MG/DL (8.5-10.1) Estimat Glomerular Filtration Rate 83 ML/MIN (>89) Imaging Last Impressions Carotid Artery Ultrasound 11/14/17 0000 Signed Impressions: CONCLUSION: No significant stenosis. Brain MRI 11/13/17 0000 Signed Impressions: CONCLUSION: 1. No acute intracranial abnormality is identified. There are no findings to i ndicate recent ischemia. 2. Chronic findings include generalized atrophy and moderate to severe white m atter changes characteristic of chronic microvascular ischemia. Head CT 11/12/178 Signed Impressions: CONCLUSION: 1. No acute intracranial abnormality demonstrated. 2. Chronic white matter changes are again noted. Cervical Spine CT 11/12/171707 Signed Impressions: CONCLUSION: 1. Diffuse cervical spondylosis with moderate bilateral foraminal narrowing fr om C3 through T1. 2. No acute fracture or prevertebral soft tissue swelling. 3. No spinal stenosis. PE at Discharge General: Elderly male in no acute distress. Heart: Regular rate and rhythm. No murmur. Lungs: Clear to auscultation bilaterally. No wheezes, rales, or rhonchi. Breathing is nonlabored. Abdomen: Soft, nontender, nondistended. Extremities: No lower extremity edema. Psych: Alert, confused. Neuro: Normal speech. No focal deficits noted. Pt update on day of discharge The patient has no complaints at this time. Denies headache, vision changes, chest pain, dyspnea, lightheadedness. Hospital Course The patient was admitted for further evaluation of encephalopathy. CT and MRI of the brain were negative. Echocardiogram showed normal systolic function. Neurology was consulted. Blood pressure was initially allowed to be elevated due to possibility of CVA. Blood pressure medications were restarted. He was continued on aspirin, Plavix, statin. He was cleared for discharge by neurology. Pt Condition on Discharge: Stable Discharge Disposition: Discharge to SNF Discharge Time: > 30 minutes Discharge Instructions DIET: Follow Instructions for: Heart Healthy Diet, Diabetic Diet Activities you can perform: See Additionl Instruction Activities to Avoid: Driving Other Activity Instructions: With assistance Follow up Referrals: Neurology - 1 Week with Luiz Knott MD PCP Follow-up - 1 Week New Medications: Amlodipine (Norvasc) 5 Mg Tab 10 MG PO DAILY for Blood Pressure Management, #[address] (Aspirin DR) 81 Mg Tabdr 81 MG PO DAILY for Blood Clot Prevention, #30 TAB Insulin Aspart Inj (Novolog Inj) 100 Unit/Ml Inj 1 UNIT SQ ACHS SLIDING SCALE for Blood Sugar Management, #30 INJECTION Pravastatin (Pravachol) 40 Mg Tab 40 MG PO DAILY for Cholesterol Management, #30 TAB Continued Medications: Clopidogrel (Plavix) 75 Mg Tab 75 MG PO DAILY for Blood Clot Prevention, #30 TAB 0 Refills Isosorbide Mononitrate ER (Isosorbide Mononitrate ER) 30 Mg Theresa 30 MG PO DAILY for Prevent Chest Pain, #30 TAB 0 Refills Lisinopril (Lisinopril) 40 Mg Tab 40 MG PO DAILY for Blood Pressure Management, #30 TAB 0 Refills Metformin (Metformin) 500 Mg Tab 500 MG PO BID for Blood Sugar Management, #60 TAB 0 Refills Metoprolol Succinate ER 24 HR (Metoprolol Succinate ER 24 HR) 25 Mg Tab 25 MG PO DAILY, #30 TAB 0 Refills Nitroglycerin SL (Nitroglycerin SL) 0.4 Mg Subl 0.4 MG SL DIRECTED PRN for CHEST PAIN, #100 TAB.SL 0 Refills ONE TABLET UNDER THE TONGUE NEEDED FOR CHEST PAIN, MAY REPEAT EVERY FIVE MINUTES FOR A TOTAL OF 3 DOSES OR CALL 911 IF NO RELIEF Pantoprazole (Pantoprazole) 40 Mg Tab 40 MG PO DAILY for Reflux, #30 TAB 0 Refills Mc Abbott MD Nov 15, 2017 13:03
[2017-11-16] VITALS (9 sets, daily range): BP systolic 107–178; BP diastolic 55–84; PULSE 49–61; RESP 16–24; TEMP 97.1–98.1; O2SAT 96–99
[2017-11-16] MEDS: INSULIN ASPART SUPPLEMENTAL SCALE SQ SCH ×4 (08:56→20:39)
[2017-11-16] MEDS: PRAVASTATIN SOD 40 MG TAB PO SCH (08:57)
[2017-11-16] MEDS: ASPIRIN EC 81 MG TABEC PO SCH (08:57)
[2017-11-16] MEDS: PANTOPRAZOLE SOD 40 MG DELAYED RELEASE TAB PO SCH (08:57)
[2017-11-16] MEDS: amLODIPine BESYLATE 5 MG TAB PO SCH (08:57)
[2017-11-16] MEDS: METOPROLOL SUCCINATE 25 MG EXTENDED RELEASE TAB PO SCH (08:57)
[2017-11-16] MEDS: ISOSORBIDE MONONITRATE 30 MG CR TAB (IMDUR) PO SCH (08:58)
[2017-11-16] MEDS: LISINOPRIL 20 MG TAB PO SCH (08:58)
[2017-11-16] MEDS: CLOPIDOGREL 75 MG TAB PO SCH (08:58)
[2017-11-16] MEDS: DOCUSATE SODIUM 50 MG/SENNA 8.6 MG TAB PO SCH ×2 (08:58→20:39)
[2017-11-16] MEDS: SODIUM CHLORIDE 0.9% FLUSH 10 ML FLUSH IV FLUSH SCH ×2 (08:59→20:39)
[2017-11-16] MEDS ORDERED: amLODIPine BESYLATE 5 MG TAB PO ONE (09:45)
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
[2017-11-16] MEDS: HEPARIN SODIUM - SQ 10,000 UNITS/ML VIAL SQ SCH ×2 (13:38→20:39)
--- NOTE | 2017-11-16 16:23 | HHI.PR ---
Review/Management Diagnosis/Plan: (1) Encephalopathy ICD Codes: G93.40 - Encephalopathy, unspecified Status: Acute Plan: Suspect hypertensive encephalopathy; left MCA TIA cannot be excluded MRI brain scan no acute stroke Carotid ultrasound no significant vaso-occlusive disease Recommendations Neuro stable Lipid blood pressure control, diabetic control B12 TSH levels normal PT eval Outpatient cognitive evaluation Discharge planning from neurologic standpoint outpatient follow-up; discussed with RN states waiting for placement He should not drive and have continued supervision from his son as it appears he likely has some level of underlying dementia or cognitive impairment (2) Dementia ICD Codes: F03.90 - Unspecified dementia without behavioral disturbance Status: Chronic Plan: Suspect underlying cognitive impairment/ dementia of Alzheimer's type (3) Accelerated hypertension ICD Codes: I10 - Accelerated hypertension Status: Acute (4) HTN (hypertension) ICD Codes: I10 - Essential (primary) hypertension Status: Chronic Subjective Subjective Comments No acute events reported No headache No chest pain No dyspnea Active Medications Current Medications Medications (Trade) Dose Ordered Sig/Annelise Route Start Time Stop Time Status Last Admin (D50w (Vial) Inj) 50 ml UNSCH PRN IV PUSH 11/12/17 19:15 (Glucagon Inj) 1 mg UNSCH PRN OTHER 11/12/17 19:15 (NovoLOG SUPPLEMENTAL SCALE) 1 ACHS SLIDING SCALE SQ 11/12/17 21:00 11/16/17 13:38 (NS Flush) 2 ml UNSCH PRN IV FLUSH 11/12/17 19:15 11/14/17 17:26 (NS Flush) 2 ml BID IV FLUSH 11/12/17 21:00 11/16/17 08:59 (Reglan Inj) 5 mg Q6H PRN IV PUSH 11/12/17 19:15 (Tylenol) 650 mg Q6H PRN PO 11/12/17 19:15 ([place] 5-325 Mg) 1 tab Q4H PRN PO 11/12/17 19:15 ([place] 10-325 Mg) 1 tab Q4H PRN PO 11/12/17 19:15 (Sarai-Colace) 1 tab BID PO 11/12/17 21:00 11/16/17 08:58 (Milk Of Magnesia Liq) 30 ml Q12H PRN PO 11/12/17 19:15 (Senokot) 17.2 mg Q12H PRN PO 11/12/17 19:15 (Dulcolax Supp) 10 mg DAILY PRN RECTAL 11/12/17 19:15 (Lactulose Liq) 30 ml DAILY PRN PO 11/12/17 19:15 (Plavix) 75 mg DAILY PO 11/13/17 09:00 11/16/17 08:58 (Protonix) 40 mg DAILY PO 11/13/17 09:00 11/16/17 08:57 (Ecotrin Ec) 81 mg DAILY PO 11/13/17 09:00 11/16/17 08:57 (Pravachol) 40 mg DAILY PO 11/13/17 09:00 11/16/17 08:57 (Imdur) 30 mg DAILY PO 11/15/17 09:00 11/16/17 08:58 (Toprol Xl) 25 mg DAILY PO 11/14/17 11:30 11/16/17 08:57 (Prinivil) 40 mg DAILY PO 11/14/17 12:00 11/16/17 08:58 (Catapres) 0.1 mg Q6H PRN PO 11/14/17 17:15 (Vasotec Inj) 1.25 mg Q6H PRN IV PUSH 11/14/17 17:15 11/14/17 17:26 (Norvasc) 10 mg DAILY PO 11/17/17 09:00 (Heparin Inj) 5,000 units Q12HR SQ 11/16/17 13:15 11/16/17 13:38 Allergies Allergies Coded Allergies No Known Allergies (Verified Adverse Reaction, Unknown, 11/12/17) Review of Systems All other ROS: ROS reviewed as documented in chart Exam I&O / VS Vital Signs Date Time Temp Pulse Resp B/P (MAP) Pulse Ox O2 Delivery O2 Flow Rate FiO2 11/16/17 15:08 97.7 59 16 107/55 (72) 99 11/16/17 11:15 97.7 61 20 151/70 (97) 98 11/16/17 07:57 97.4 54 24 178/82 (114) 97 11/16/17 07:00 49 11/16/17 03:42 97.1 58 16 174/74 (107) 96 11/15/17 23:54 97.8 52 20 170/80 (110) 98 11/15/17 20:00 98.0 59 18 163/68 (99) 99 11/15/17 20:00 63 11/15/17 16:37 46 General: Alert and Oriented, No acute distress Respiratory: Non-labored respirations Cardiology: Normal rate Musculoskeletal: ROM Neurologic: Alert Psychiatric: Cooperative Exam Comments Awake alert oriented 2 not to date impaired short-term memory pleasant, calm, neck supple no temporal tenderness visual sharp full pupils 2 mm sluggishly reactive no facial asymmetry tongue midline no pronator drift does have mild bilateral calf atrophy reflex symmetric no clonus plantarflex, reduced pinprick stocking distribution, response gait not assessed secondary to fall risk Problem Qualifiers (1) Dementia: (2) HTN (hypertension): Qualified Codes: I10 - Essential (primary) hypertension Luiz Knott MD Nov 16, 2017 16:23
[2017-11-17] VITALS (9 sets, daily range): BP systolic 115–220; BP diastolic 58–103; PULSE 52–60; RESP 16–20; TEMP 97.5–98; O2SAT 97–99
[2017-11-17] MEDS: CLOPIDOGREL 75 MG TAB PO SCH (09:15)
[2017-11-17] MEDS: PRAVASTATIN SOD 40 MG TAB PO SCH (09:15)
[2017-11-17] MEDS: PANTOPRAZOLE SOD 40 MG DELAYED RELEASE TAB PO SCH (09:16)
[2017-11-17] MEDS: ASPIRIN EC 81 MG TABEC PO SCH (09:16)
[2017-11-17] MEDS: ISOSORBIDE MONONITRATE 30 MG CR TAB (IMDUR) PO SCH (09:16)
[2017-11-17] MEDS: LISINOPRIL 20 MG TAB PO SCH (09:16)
[2017-11-17] MEDS: DOCUSATE SODIUM 50 MG/SENNA 8.6 MG TAB PO SCH ×2 (09:16→20:23)
[2017-11-17] MEDS: HEPARIN SODIUM - SQ 10,000 UNITS/ML VIAL SQ SCH ×2 (09:16→20:24)
[2017-11-17] MEDS: METOPROLOL SUCCINATE 25 MG EXTENDED RELEASE TAB PO SCH (09:16)
[2017-11-17] MEDS: SODIUM CHLORIDE 0.9% FLUSH 10 ML FLUSH IV FLUSH SCH ×2 (09:17→20:25)
[2017-11-17] MEDS: INSULIN ASPART SUPPLEMENTAL SCALE SQ SCH ×4 (09:22→21:35)
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
[2017-11-18] VITALS (9 sets, daily range): BP systolic 121–176; BP diastolic 58–82; PULSE 47–63; RESP 16–18; TEMP 97.9–98.9; O2SAT 96–97
[2017-11-18] MEDS: METOPROLOL SUCCINATE 25 MG EXTENDED RELEASE TAB PO SCH (09:00)
[2017-11-18] MEDS: PRAVASTATIN SOD 40 MG TAB PO SCH (09:31)
[2017-11-18] MEDS: HEPARIN SODIUM - SQ 10,000 UNITS/ML VIAL SQ SCH (09:31)
[2017-11-18] MEDS: SODIUM CHLORIDE 0.9% FLUSH 10 ML FLUSH IV FLUSH SCH ×2 (09:31→21:00)
[2017-11-18] MEDS: PANTOPRAZOLE SOD 40 MG DELAYED RELEASE TAB PO SCH (09:31)
[2017-11-18] MEDS: ASPIRIN EC 81 MG TABEC PO SCH (09:31)
[2017-11-18] MEDS: INSULIN ASPART SUPPLEMENTAL SCALE SQ SCH ×3 (09:31→18:17)
[2017-11-18] MEDS: CLOPIDOGREL 75 MG TAB PO SCH (09:32)
[2017-11-18] MEDS: DOCUSATE SODIUM 50 MG/SENNA 8.6 MG TAB PO SCH ×2 (09:32→21:00)
[2017-11-18] MEDS: LISINOPRIL 20 MG TAB PO SCH (09:32)
[2017-11-18] MEDS: ISOSORBIDE MONONITRATE 30 MG CR TAB (IMDUR) PO SCH (09:32)
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
[2017-11-19] VITALS (8 sets, daily range): BP systolic 108–162; BP diastolic 54–73; PULSE 51–64; RESP 16–20; TEMP 95.9–98.3; O2SAT 93–100
[2017-11-19] MEDS: HEPARIN SODIUM - SQ 10,000 UNITS/ML VIAL SQ SCH ×3 (00:10→22:10)
[2017-11-19] MEDS: INSULIN ASPART SUPPLEMENTAL SCALE SQ SCH ×5 (00:11→22:10)
[2017-11-19] MEDS: CLOPIDOGREL 75 MG TAB PO SCH (08:03)
[2017-11-19] MEDS: ASPIRIN EC 81 MG TABEC PO SCH (08:03)
[2017-11-19] MEDS: DOCUSATE SODIUM 50 MG/SENNA 8.6 MG TAB PO SCH ×2 (08:03→21:00)
[2017-11-19] MEDS: PANTOPRAZOLE SOD 40 MG DELAYED RELEASE TAB PO SCH (08:04)
[2017-11-19] MEDS: ISOSORBIDE MONONITRATE 30 MG CR TAB (IMDUR) PO SCH (08:04)
[2017-11-19] MEDS: LISINOPRIL 20 MG TAB PO SCH (08:04)
[2017-11-19] MEDS: PRAVASTATIN SOD 40 MG TAB PO SCH (08:04)
[2017-11-19] MEDS: SODIUM CHLORIDE 0.9% FLUSH 10 ML FLUSH IV FLUSH SCH ×2 (08:05→21:00)
[2017-11-19] MEDS: METOPROLOL SUCCINATE 25 MG EXTENDED RELEASE TAB PO SCH (08:05)
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
[2017-11-20 03:59] VITALS: BP 177/79; PULSE 69; RESP 16; TEMP 97.7; O2SAT 98
[2017-11-20 06:04] VITALS: BP 142/65; PULSE 61; TEMP 97.9; O2SAT 98
[2017-11-20 07:35] VITALS: BP 176/80; PULSE 67; RESP 18; TEMP 97.5; O2SAT 97
[2017-11-20] MEDS: INSULIN ASPART SUPPLEMENTAL SCALE SQ SCH ×4 (08:00→21:00)
[2017-11-20] MEDS: PANTOPRAZOLE SOD 40 MG DELAYED RELEASE TAB PO SCH (08:46)
[2017-11-20] MEDS: SODIUM CHLORIDE 0.9% FLUSH 10 ML FLUSH IV FLUSH SCH ×2 (08:46→21:22)
[2017-11-20] MEDS: ISOSORBIDE MONONITRATE 30 MG CR TAB (IMDUR) PO SCH (08:47)
[2017-11-20] MEDS: DOCUSATE SODIUM 50 MG/SENNA 8.6 MG TAB PO SCH ×2 (08:47→21:22)
[2017-11-20] MEDS: CLOPIDOGREL 75 MG TAB PO SCH (08:47)
[2017-11-20] MEDS: ASPIRIN EC 81 MG TABEC PO SCH (08:48)
[2017-11-20] MEDS: LISINOPRIL 20 MG TAB PO SCH (08:48)
[2017-11-20] MEDS: PRAVASTATIN SOD 40 MG TAB PO SCH (08:48)
[2017-11-20] MEDS: METOPROLOL SUCCINATE 25 MG EXTENDED RELEASE TAB PO SCH (08:49)
[2017-11-20] MEDS: HEPARIN SODIUM - SQ 10,000 UNITS/ML VIAL SQ SCH ×2 (08:49→21:22)
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
[2017-11-20 11:50] VITALS: BP 120/58; PULSE 59; RESP 16; TEMP 97.7; O2SAT 99
[2017-11-20 15:41] VITALS: BP 135/63; PULSE 56; RESP 18; TEMP 98.7; O2SAT 98
[2017-11-20 20:16] VITALS: BP 133/67; PULSE 57; RESP 16; TEMP 97.8; O2SAT 98
[2017-11-21 00:50] VITALS: BP 137/65; PULSE 49; RESP 16; TEMP 97.9; O2SAT 98
[2017-11-21 05:12] VITALS: BP 143/68; PULSE 52; RESP 16; TEMP 97.9; O2SAT 97
[2017-11-21 08:00] VITALS: BP 150/84; PULSE 51; RESP 18; TEMP 97.7; O2SAT 96
[2017-11-21] MEDS: INSULIN ASPART SUPPLEMENTAL SCALE SQ SCH ×2 (08:00→12:00)
[2017-11-21] MEDS: SODIUM CHLORIDE 0.9% FLUSH 10 ML FLUSH IV FLUSH SCH (09:00)
[2017-11-21] MEDS: METOPROLOL SUCCINATE 25 MG EXTENDED RELEASE TAB PO SCH (09:00)
[2017-11-21] MEDS: LISINOPRIL 20 MG TAB PO SCH (09:17)
[2017-11-21] MEDS: ISOSORBIDE MONONITRATE 30 MG CR TAB (IMDUR) PO SCH (09:17)
[2017-11-21] MEDS: DOCUSATE SODIUM 50 MG/SENNA 8.6 MG TAB PO SCH (09:17)
[2017-11-21] MEDS: CLOPIDOGREL 75 MG TAB PO SCH (09:17)
[2017-11-21] MEDS: PRAVASTATIN SOD 40 MG TAB PO SCH (09:18)
[2017-11-21] MEDS: HEPARIN SODIUM - SQ 10,000 UNITS/ML VIAL SQ SCH (09:18)
[2017-11-21] MEDS: ASPIRIN EC 81 MG TABEC PO SCH (09:18)
[2017-11-21] MEDS: PANTOPRAZOLE SOD 40 MG DELAYED RELEASE TAB PO SCH (09:18)
[2017-11-21 12:00] VITALS: BP 120/57; PULSE 51; RESP 18; TEMP 97.7; O2SAT 97
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
--- NOTE | 2017-11-21 15:58 | HHI.FF ---
Face to Face Verification Diagnosis: (1) Hypertensive urgency (2) Poorly controlled diabetes mellitus (3) HTN (hypertension) Physical Therapy Order: Evaluate and Treat Home Health Nursing Order: Medical education Diabetic education Nursing assessment with vital signs Instructions: Home health nurse for medication management. Home Health Aide Order: To Assist In: Bathing and personal care Generation Mechanic Helper Order: To Evaluate: Living conditions/environment, Support services Order: To Provide: Long range planning I have seen patient Ernie Elliott on 11/21/17. My clinical findings support the need for the requested home health care services because: Limited ability to care for self I certify that my clinical findings support that this patient is homebound because: Unsafe to leave home unassisted Ren Araujo MD Nov 21, 2017 15:58
[2017-11-21 16:00] VITALS: BP 100/55; PULSE 52; RESP 18; TEMP 97.8; O2SAT 97
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
== END 2017-11-21 17:06 | disposition home or self-care (01) ==
LOC: NEPE 16:35 → NEDA 19:00 → NEPGCP 20:42 → HCIS 11-17 08:09 → NEPGCP 11-17 08:11 → NEPHCDU 11-19 14:47
PROVIDERS: ADMIT Internal Medicine; ATTEND Internal Medicine
DX: G45.9 Transient cerebral ischemic attack, unspecified (principal); G93.40 Encephalopathy, unspecified; E86.0 Dehydration; I25.10 Atherosclerotic heart disease of native coronary artery without angina pectoris; I10 Essential (primary) hypertension; I44.4 Left anterior fascicular block; R00.1 Bradycardia, unspecified; R94.31 Abnormal electrocardiogram [ECG] [EKG]; E11.9 Type 2 diabetes mellitus without complications; E78.00 Pure hypercholesterolemia, unspecified; K21.9 Gastro-esophageal reflux disease without esophagitis; M47.812 Spondylosis without myelopathy or radiculopathy, cervical region; H91.93 Unspecified hearing loss, bilateral; Z85.51 Personal history of malignant neoplasm of bladder; Z86.73 Personal history of transient ischemic attack (TIA), and cerebral infarction without residual deficits; Z79.899 Other long term (current) drug therapy
CPT/HCPCS: 70450; 70551; 72125; 80048; 80053; 80061; 81001; 82607; 82948; 83036; 84443; 84484; 85025; 85610; 85730; 93005; 93306; 93880; 96361; 96372; 96374; 97110; 97116; 97162; 97530; 99285; G0378; G8987; G8988; J1644; J1815; J7030

== ENCOUNTER 2017-12-20 16:21 | Inpatient (IN) ==
[2017-12-20] MEDS ORDERED: Sod Chloride 0.9% Inj 1,000 ML IV.SIG ONE (19:17)
--- NOTE | 2017-12-20 19:25 | ED ---
HPI General Chief complaint: Seizure Stated complaint: Diarrhea/Passed Out Time Seen by Provider: 12/20/17 19:14 Source: family History of Present Illness HPI narrative: Patient is a 82-year-old male who presents the emergency room with his ex- for evaluation of altered mental status. Patient has history of diabetes, hypertension, CVA, seizure, patient's ex- reports that he was found on the ground unresponsive by his grandson today. Reports that he has been appearing delirious over the past 3 days, reports that he has not been making any sense. Patient's ex- is concerned as patient has been having episodes of losing his bowels, reports that he lost his bowels 3 times a day while ambulating. Reports that he is confused when compared to his baseline. Reports that they did call patient's primary care doctor, Dr. Duque and was told to go to the ER as he may be having a seizure. Reports that he has history of seizures but he is currently not on any medications for seizures. Patient's family member reports that patient was recently admitted to the hospital recently for similar symptoms, reports that he was found to have a seizure and a stroke at the same time. Patient is currently confused, he is only alert to person. Patient reports that he has been having multiple episodes of diarrhea, patient denies any chest pain or shortness of breath, denies any abdominal pain. Patient with no complaints at this time. As per his ex- - reports that she had to move into his home to help care for him, he does have home nursing but she was concerned that he was decompensating. Related Data Home Medications Medication Instructions Recorded Confirmed Aspir-81 81 mg PO DAILY 12/20/17 12/20/17 Plavix 75 mg PO DAILY 12/20/17 12/20/17 amlodipine 10 mg PO 12/20/17 12/20/17 isosorbide mononitrate 30 mg PO DAILY 12/20/17 12/20/17 lisinopril 40 mg PO DAILY 12/20/17 12/20/17 metformin 500 mg PO BID 12/20/17 12/20/17 metoprolol succinate 25 mg PO DAILY 12/20/17 12/20/17 pantoprazole 40 mg PO DAILY 12/20/17 12/20/17 pravastatin 40 mg PO HS 12/20/17 12/20/17 Allergies Allergy/AdvReac Type Severity Reaction Status Date / Time No Known Allergies AdvReac Unknown Uncoded 11/12/17 16:48 Review of Systems ROS Unobtainable unobtainable due to mental condition and unobtainable due to mental status [facility] Medical History Medical History CVA (cerebral vascular accident) (Acute) Diabetes (Acute) HTN (hypertension) with goal to be determined (Acute) Seizure (Acute) Social History Social History Substance History: No History of Abuse Second Hand Smoke Exposure: Yes Smoking Status: Current some day smoker Tobacco Type: Cigarettes How Often Do You Have a Drink Containing Alcohol: Never Recent Travel in [facility] within the Last 8 Weeks: No Recent Out of Country Travel within the Last 8 Weeks: No Immunization History Tetanus Immunization: >5 Years Hx Influenza Vaccine This Season: Unable to Assess Exam Narrative Exam Narrative: GENERAL: Patient unkempt, laying in stool, patient confused SKIN: Focused skin assessment warm/dry. HEAD: Atraumatic. Normocephalic. EYES: Pupils equal and round. No scleral icterus. No injection or drainage. ENT: No nasal bleeding or discharge. Mucous membranes pink and moist. NECK: Trachea midline. No JVD. CARDIOVASCULAR: Regular rate and rhythm. No murmur appreciated. RESPIRATORY: No accessory muscle use. Clear to auscultation. Breath sounds equal bilaterally. GASTROINTESTINAL: Abdomen soft, non-tender, nondistended. Hepatic and splenic margins not palpable. MUSCULOSKELETAL: No obvious deformities. No clubbing. No cyanosis. No edema. NEUROLOGICAL: Awake and alert. No obvious cranial nerve deficits. Motor grossly within normal limits. Normal speech. PSYCHIATRIC: Flat mood and affect; insight and judgment normal. Course Initial Documented Vital Signs Pulse Rate 114 H 12/20/17 16:28 Respiratory Rate 16 12/20/17 16:28 Blood Pressure 140/65 12/20/17 16:28 Pulse Oximetry 96 12/20/17 16:28 Last Documented Vital Signs Pulse Rate 103 H 12/20/17 18:55 Respiratory Rate 18 12/20/17 18:55 Blood Pressure 132/87 12/20/17 18:55 Pulse Oximetry 97 12/20/17 18:55 Medical Decision Making SONA Attestation SONA supervised visit: No MDM Narrative Medical decision making narrative: During the course of the patients emergency department visit, the patients history, examination, and differential diagnosis were reviewed with the patient. The patient was placed on a cardiac care unit nurse with oximetry and frequent blood pressure monitoring. The patient had an IV access obtained and blood work sent for analysis. The patient was initially provided IVF The patients laboratory studies were reviewed and remarkable for CBC of 12.1, hemoglobin 11.7, hct 36, platelets 197 trop less than 0.02, ammonia 11, Glucose 265 UA noted for glycosuria, [address] the head with no acute findings Plan to admit patient for workup of encephalopathy, patient's blood pressure is stable at 132/87, encephalopathy could be from dementia versus cognitive impairment, patient is unsafe to be discharged to home at this time. Patient requires observation to the hospital with close blood sugar monitoring as he is hyperglycemic and encephalopathic. He will most likely need placement as there appears to be some dementia versus cognitive impairment on exam. case reviewed with Dr. De who accepts pt to service Medical Records Medical records reviewed: Yes I reviewed the patient's medical records. Patient's previous medical record was reviewed, patient was recently admitted and discharged on November 21, 2017 with encephalopathy which was most likely due to hypertension with underlying dementia or cognitive impairment.. Patient initially presented to the ER with altered mental status after she was found lying in front of his neighbor's house with slurred speech and confusion. During the course of his hospital visit, patient had a full workup including MRI of the brain and carotid ultrasounds. Patient was found to have no acute findings. Patient was found to be a diabetic that time and was started on a sliding scale insulin. Patient was discharged to home, a DCF case was open but was apparently closed. Lab Data Lab results reviewed: Yes I reviewed the patient's lab results. Result diagrams: 12/20/17 17:56 12/20/17 17:56 Lab Results 12/20/17 12/20/17 12/20/17 Range/Units 17:56 17:56 17:56 CBC w Diff Auto diff final WBC 12.1 H (4.0-11.0) th/mm3 RBC 4.48 L (4.50-5.90) mil/mm3 Hgb 11.7 L (13.0-17.0) gm/dL Hct 36.0 L (39.0-51.0) % MCV 80.3 (80.0-100.0) fL MCH 26.1 L (27.0-34.0) pg MCHC 32.6 (32.0-36.0) % RDW 13.8 (11.6-17.2) % Plt Count 197 (150-450) th/mm3 MPV 9.1 (7.0-11.0) fL Neut % (Auto) 94.1 H (16.0-70.0) % Lymph % (Auto) 3.2 L (9.0-44.0) % [place] % (Auto) 2.0 (0.0-8.0) % Eos % (Auto) 0.0 (0.0-4.0) % Baso % (Auto) 0.7 (0.0-2.0) % Neut # (Auto) 11.4 H (1.8-7.7) th/mm3 Lymph # (Auto) 0.4 L (1.0-4.8) th/mm3 [place] # (Auto) 0.2 (0.0-0.9) th/mm3 Eos # (Auto) 0.0 (0.0-0.4) th/mm3 Baso # (Auto) 0.1 (0.0-0.2) th/mm3 WBC Differential . Differential Comment . PT 11.7 H (9.8-11.6) sec INR 1.2 Ratio APTT 31.6 H (24.3-30.1) sec Sodium 136 (136-145) meq/L Potassium 4.4 (3.5-5.1) meq/L Chloride 100 (98-107) meq/L Carbon Dioxide 28.8 (21.0-32.0) meq/L Anion Gap 7 (5-15) meq/L BUN 15 (7-18) mg/dL Creatinine 1.00 (0.60-1.30) mg/dL Estimated GFR 72 L (>89) mL/min Random Glucose 265 H (74-106) mg/dL Calcium 8.5 (8.5-10.1) mg/dL Total Bilirubin 0.8 (0.2-1.0) mg/dL AST 23 (15-37) U/L ALT 17 (12-78) U/L Alkaline Phosphatase 110 (45-117) U/L Ammonia (11-32) mcmol/L Total Creatine Kinase 82 (39-308) U/L Troponin I Less than 0.02 L (0.02-0.05) ng/mL Total Protein 7.7 (6.4-8.2) g/dL Albumin 3.3 L (3.4-5.0) g/dL Urine Color (Yellw/Straw) Urine Clarity (Clear) Urine pH (5.0-8.5) Ur Specific [place] (1.002-1.035) Urine Protein (Neg-Trace) mg/dL Urine Glucose (UA) (Negative) mg/dL Urine Ketones (Negative) mg/dL Urine Occult Blood (Negative) Urine Nitrate (Negative) Urine Bilirubin (Negative) Urine Urobilinogen (Less than 2) mg/dL Ur Leukocyte Esterase (Negative) Urine WBC (0-5) /hpf Ur Squamous Epith Cells (0-5) /hpf Amorphous Sediment (None) /hpf Micro UA Comment Urine Culture Comments Ur Barbiturates Screen (Neg) Ur Amphetamines Screen (Neg) U Benzodiazepines Scrn (Neg) Urine Cocaine Screen (Neg) U Cannabinoids Screen (Neg) Serum Alcohol Less than 3 (0-5) mg/dL 12/20/17 12/20/17 12/20/17 Range/Units 19:30 19:45 19:45 CBC w Diff WBC (4.0-11.0) th/mm3 RBC (4.50-5.90) mil/mm3 Hgb (13.0-17.0) gm/dL Hct (39.0-51.0) % MCV (80.0-100.0) fL MCH (27.0-34.0) pg MCHC (32.0-36.0) % RDW (11.6-17.2) % Plt Count (150-450) th/mm3 MPV (7.0-11.0) fL Neut % (Auto) (16.0-70.0) % Lymph % (Auto) (9.0-44.0) % [place] % (Auto) (0.0-8.0) % Eos % (Auto) (0.0-4.0) % Baso % (Auto) (0.0-2.0) % Neut # (Auto) (1.8-7.7) th/mm3 Lymph # (Auto) (1.0-4.8) th/mm3 [place] # (Auto) (0.0-0.9) th/mm3 Eos # (Auto) (0.0-0.4) th/mm3 Baso # (Auto) (0.0-0.2) th/mm3 WBC Differential Differential Comment PT (9.8-11.6) sec INR Ratio APTT (24.3-30.1) sec Sodium (136-145) meq/L Potassium (3.5-5.1) meq/L Chloride (98-107) meq/L Carbon Dioxide (21.0-32.0) meq/L Anion Gap (5-15) meq/L BUN (7-18) mg/dL Creatinine (0.60-1.30) mg/dL Estimated GFR (>89) mL/min Random Glucose (74-106) mg/dL Calcium (8.5-10.1) mg/dL Total Bilirubin (0.2-1.0) mg/dL AST (15-37) U/L ALT (12-78) U/L Alkaline Phosphatase (45-117) U/L Ammonia 11 (11-32) mcmol/L Total Creatine Kinase (39-308) U/L Troponin I (0.02-0.05) ng/mL Total Protein (6.4-8.2) g/dL Albumin (3.4-5.0) g/dL Urine Color Yellow (Yellw/Straw) Urine Clarity Clear (Clear) Urine pH 5.5 (5.0-8.5) Ur Specific [place] 1.020 (1.002-1.035) Urine Protein Trace (Neg-Trace) mg/dL Urine Glucose (UA) 500 H (Negative) mg/dL Urine Ketones 15 H (Negative) mg/dL Urine Occult Blood Negative (Negative) Urine Nitrate Negative (Negative) Urine Bilirubin Negative (Negative) Urine Urobilinogen 0.2 (Less than 2) mg/dL Ur Leukocyte Esterase Negative (Negative) Urine WBC 0-5 (0-5) /hpf Ur Squamous Epith Cells 0-5 (0-5) /hpf Amorphous Sediment Few H (None) /hpf Micro UA Comment Culture not ind Urine Culture Comments Culture not ind Ur Barbiturates Screen Neg (Neg) Ur Amphetamines Screen Neg (Neg) U Benzodiazepines Scrn Neg (Neg) Urine Cocaine Screen Neg (Neg) U Cannabinoids Screen Neg (Neg) Serum Alcohol (0-5) mg/dL Imaging Data Attestation: I personally reviewed and interpreted this imaging study as follows : Radiologist's impression: ITS Impressions Head CT 12/20/17 19:16 CONCLUSION: 1. No acute abnormality seen. 2. Mild atrophy. 3. Decreased density in the cerebral white matter likely secondary to small vessel ischemic change. 4. Sphenoid sinus disease. ECG Data EKG Prior to Arrival: No Attestation: I personally reviewed and interpreted this ECG as follows: Interpretation: EKG at 1925: NSR at 88bpm, qt/qtc: 353/399, no acute st or t wave changes Discharge Plan Discharge Disposition Patient Disposition: 30 Still Patient Discharge Details Diagnosis: Acute hyperglycemia, Encephalopathy acute Physicians Team ED Provider: Yudelka Arce Primary Care Provider: Kerri Glasgow Rxs /Orders / Referrals /Forms Prescriptions: No Action metformin tablet 500 mg PO BID RF: 0 Aspir-81 81 mg PO DAILY RF: 0 Plavix 75 mg PO DAILY RF: 0 amlodipine 10 mg PO HS RF: 0 isosorbide mononitrate 30 mg PO DAILY RF: 0 lisinopril 40 mg PO DAILY RF: 0 metoprolol succinate 25 mg PO DAILY RF: 0 pantoprazole 40 mg PO DAILY RF: 0 pravastatin 40 mg PO HS RF: 0 Status ED Status: With Doctor
[2017-12-20 19:35] LABS: Baso # (Auto) 0.1 th/mm3 (0.0-0.2); Baso % (Auto) 0.7 % (0.0-2.0); Hemoglobin 11.7 gm/dL (13.0-17.0); Lymph # (Auto) 0.4 th/mm3 (1.0-4.8); Lymph % (Auto) 3.2 % (9.0-44.0); Mean Corpuscular HGB Conc 32.6 % (32.0-36.0); Mean Corpuscular Hemoglobin 26.1 pg (27.0-34.0); Mean Corpuscular Volume 80.3 fL (80.0-100.0); Mean Platelet Volume 9.1 fL (7.0-11.0); Mono # (Auto) 0.2 th/mm3 (0.0-0.9); Neut # (Auto) 11.4 th/mm3 (1.8-7.7); Neut % (Auto) 94.1 % (16.0-70.0); Platelet Count 197 th/mm3 (150-450); Red Blood Count 4.48 mil/mm3 (4.50-5.90); Red Cell Distribution Width 13.8 % (11.6-17.2); White Blood Count 12.1 th/mm3 (4.0-11.0)
[2017-12-20 19:43] LABS: Chloride 100 meq/L (98-107); Potassium 4.4 meq/L (3.5-5.1); Sodium 136 meq/L (136-145)
[2017-12-20 19:47] LABS: Albumin 3.3 g/dL (3.4-5.0); Anion Gap 7 meq/L (5-15); Blood Urea Nitrogen 15 mg/dL (7-18); Calcium 8.5 mg/dL (8.5-10.1); Carbon Dioxide 28.8 meq/L (21.0-32.0); Glucose,Random 265 mg/dL (74-106)
[2017-12-20 19:48] LABS: Activated Partial Thrombo Time 31.6 sec (24.3-30.1); INR 1.2 Ratio; Prothrombin Time 11.7 sec (9.8-11.6)
[2017-12-20 19:50] LABS: Alanine Aminotransferase 17 U/L (12-78); Aspartate Aminotransferase 23 U/L (15-37); Glomerular Filtration Rate 72 mL/min (>89)
[2017-12-20 19:52] LABS: Total Protein 7.7 g/dL (6.4-8.2)
[2017-12-20 19:53] LABS: Alkaline Phosphatase 110 U/L (45-117)
[2017-12-20 19:58] LABS: Creatine Kinase 82 U/L (39-308)
[2017-12-20 20:18] LABS: Bilirubin,Urine Negative (Negative); Clarity,Urine Clear (Clear); Color,Urine Yellow (Yellw/Straw); Glucose,Urine (UA) 500 mg/dL (Negative); Leukocyte Esterase,Urine Negative (Negative); Nitrite,Urine Negative (Negative); PH,Urine 5.5 (5.0-8.5); Urobilinogen,Urine 0.2 mg/dL (Less than 2)
[2017-12-20 20:27] LABS: Barbiturate Screen,Urine Neg (Neg)
[2017-12-20 20:35] LABS: Amphetamine Screen,Urine Neg (Neg)
--- NOTE | 2017-12-20 20:35 | CT ---
EXAM DATE: 12/20/2017 8:04 PM EDT AGE/SEX: 82 years / Male INDICATIONS: Altered mental status. CLINICAL DATA: This is the patient's initial encounter. Patient reports that signs and symptoms have been present for 1 day and indicates a pain score of 0/10. MEDICAL/SURGICAL HISTORY: Cerebrovascular disease. Hypertension. Seizures. Diabetes. None. RADIATION DOSE: 57.65 CTDI (mGy) COMPARISON: [facility] – [place], [place] BRAIN W/O CONTRAST, 11/12/2017. . TECHNIQUE: CT of the head without contrast. Using automated exposure control and adjustment of the mA and/or kV according to patient size, radiation dose was kept as low as reasonably achievable to ob tain optimal diagnostic quality images. DICOM format image data is available electronically for revi ew and comparison. FINDINGS: Cerebrum: The ventricles and cortical sulci are mildly widened. There is decreased density in the ce rebral white matter. No evidence of midline shift, mass lesion, hemorrhage or acute infarction. No e xtraaxial fluid collections are seen. Posterior Fossa: The cerebellum and brainstem are intact. The 4th ventricle is midline. The cerebe llopontine angle is unremarkable. Extracranial: The visualized portion of the orbits is intact. There is sphenoid sinus disease. Skull: The calvaria is intact. No evidence of skull fracture. CONCLUSION: 1. No acute abnormality seen. 2. Mild atrophy. 3. Decreased density in the cerebral white matter likely secondary to small vessel ischemic change. 4. Sphenoid sinus disease. Electronically signed by: Leodan Mathew MD 12/20/2017 8:34 PM EDT
[2017-12-20 20:38] LABS: Cannabinoid Screen,Urine Neg (Neg)
[2017-12-20 20:39] LABS: Cocaine Screen,Urine Neg (Neg)
[2017-12-20 20:45] LABS: Amorphous Sediment,Urine Few /hpf; Squamous Epithelial Cell,Urine 0-5 /hpf (0-5); WBC,Urine 0-5 /hpf (0-5)
[2017-12-20 21:30] LABS: Opiate Screen,Urine Neg (Neg)
[2017-12-20] MEDS ORDERED: Dextrose 50% in Water 50 ML Vial IV.PUSH PRN (22:15)
[2017-12-20] MEDS: Heparin - SQ 10,000 UNITS/ML Vial SQ SCH (22:33)
[2017-12-20] MEDS: Sod Chloride 0.9% Inj 1,000 ML IV.CONT SCH (22:36)
[2017-12-21] MEDS: Insulin NovoLIN Regular Correctional Sugar Inj SQ SCH ×5 (03:00→21:50)
--- NOTE | 2017-12-21 08:47 | XR ---
EXAM DATE: 12/20/2017 7:45 PM EDT AGE/SEX: 82 years / Male INDICATIONS: Shortness of breath. CLINICAL DATA: This is the patient's initial encounter. Patient reports that signs and symptoms have been present for 1 day and indicates a pain score of Nonresponsive. MEDICAL/SURGICAL HISTORY: Non-responsive. Non-responsive. COMPARISON: [facility] [place] SINGLE AP, 10/22/2017. . FINDINGS: 2 portable frontal views of the chest demonstrate the lungs to be symmetrically aerated without evide nce of mass, infiltrate or effusion. The cardiomediastinal contours are unremarkable. A scoliotic an d degenerative spine. CONCLUSION: No acute cardiopulmonary disease. Electronically signed by: Hansel Eubanks MD 12/21/2017 8:46 AM EDT
[2017-12-21] MEDS ORDERED: METOPROLOL SUCCINATE 25 MG PO SCH (09:00)
[2017-12-21] MEDS ORDERED: PLAVIX 75 MG PO SCH (09:00)
[2017-12-21] MEDS ORDERED: Non-Formulary Drug (Aspir-81 81 MG) PO SCH (09:00)
[2017-12-21] MEDS ORDERED: LISINOPRIL 40 MG PO SCH (09:00)
[2017-12-21] MEDS ORDERED: PANTOPRAZOLE 40 MG PO SCH (09:00)
[2017-12-21] MEDS ORDERED: ISOSORBIDE MONONITRATE 30 MG PO SCH (09:00)
--- NOTE | 2017-12-21 09:03 | US ---
EXAM DATE: 12/21/2017 8:40 AM EDT AGE/SEX: 82 years / Male INDICATIONS: Altered mental status. CLINICAL DATA: This is the patient's initial encounter. Patient reports that signs and symptoms have been present for 1 day and indicates a pain score of 0/10. MEDICAL/SURGICAL HISTORY: Hypertension. Diabetes. CVA. Seizures. None. [place] [facility] [place]. . VELOCITY PARAMETERS: ICA/CCA Ratio: Right 0.7 , Left 0.8 ICA: Right 77 cm/sec, Left 92 cm/sec CCA: Right 111 cm/sec, Left 116 cm/sec ECA: Right 68 cm/sec, Left 59 cm/sec Vertebral: Right 81 cm/sec antegrade, Left 76 cm/sec antegrade FINDINGS: Right Carotid: Mild intimal thickening is identified in the common carotid artery. No significant simin que is visualized.The waveforms are within normal limits. Left Carotid: Mild intimal thickening is identified in the common carotid artery. No significant plaq ue is visualized. The waveforms are within normal limits. Other: None. CONCLUSION: 1. Right Internal Carotid Artery: No significant stenosis or atherosclerotic plaque is visualized. 2. Left Internal Carotid Artery: No significant stenosis or atherosclerotic plaque is visualized. 3. Antegrade flow both vertebral arteries. Electronically signed by: Valdemar Llamas MD 12/21/2017 9:02 AM EDT
[2017-12-21] MEDS: Metoprolol Tartrate 25 MG Tablet PO SCH (10:22)
[2017-12-21] MEDS: Lisinopril 20 MG Tablet PO SCH (10:22)
[2017-12-21] MEDS: Isosorbide Mononitrate 30 MG ER 24HR Tablet (Imdur) PO SCH (10:27)
[2017-12-21 10:39] LABS: Chol/HDL Ratio 2.01 Ratio; HDL Cholesterol 35.2 mg/dL (40.0-60.0)
--- NOTE | 2017-12-21 10:45 | P.HP ---
History of Present Illness Primary Care Physician: Kerri Glasgow MD History of Present Illness: This is an 82-year-old male patient with a known medical history of previous CVA , diabetes, hypertension and seizure history who presented to the ED with altered mental status. Supposedly he lives with his ex-, patient was found on the ground unresponsive by his grandson today. Supposedly there was reports of delirium for the past few days, stating that patient was not making any sense. It should be also noted that patient has been incontinent of stool roughly 3 times per day especially with ambulating. Patient's PCP is Dr. Duque, and was called by the family yesterday and advised to come to the ED. Patient was recently admitted in early November, found to have a seizure as well as a stroke at that time. Neurology saw patient and stroke workup was done. Patient was advised to follow-up with neurology upon discharge although this is questionable whether he has followed up. Patient denies any recent illness including fever, chills, cough, shortness of breath, abdominal pain, nausea, vomiting or dysuria. He does admit to multiple episodes of diarrhea although C. difficile toxin in ED was negative. It should also be noted that patient's case was evaluated by [facility] during prior hospitalization. Case management requested to assist in further evaluation. At the time of assessment this morning patient is sitting up in his wheelchair about to go down for an MRI. Patient is alert and awake, pleasantly confused, does state he is in the hospital although unaware of time and year. He does follow commands without any residual weakness. Right eye pupil is notably larger than the left - roughly 4 mm in the right and 2 mm in the left. Right pupil is not reactive. This is unclear if this is chronic for patient. He admits to previous cataract in the right eye. - Diagnosis (1) Transient ischemic attack (2) Encephalopathy acute Review of Systems All other systems reviewed negative except as stated in HPI, unobtainable due to mental status PMFSH - History History Provided By: Medical Record - Medical History Medical History: Medical History (Last Updated 12/21/17 @ 11:01 by Bre Crawford) CVA (cerebral vascular accident) Cataract Diabetes HTN (hypertension) with goal to be determined Seizure - Surgical History Surgical History: Surgical History (Last Updated 12/21/17 @ 11:01 by Bre Crawford) H/O prostatectomy Hx of tonsillectomy - Family History Family History: Family History (Last Updated 12/21/17 @ 11:01 by Bre Crawford) Other No significant family history - Tobacco History Second Hand Smoke Exposure: No Tobacco Use In Past 30 Days: Yes Smoking Status: Current some day smoker Tobacco Type: Cigarettes - Alcohol History How Often Do You Have a Drink Containing Alcohol: Never - Substance Use History Substance History: No History of Abuse - Travel History Recent Travel in the [place] Within the Last 8 Weeks: No Recent Travel Out of the Country Within the Last 8 Weeks: No - Immunization History Tetanus Immunization: >5 Years Hx Influenza Vaccine This Season: Unable to Assess Medications and Allergies Active Medications: Active Medications Amlodipine Besylate (Norvasc) 10 mg PO HS [facility] Aspirin (Aspirin Chew) 81 mg PO DAILY [facility] Last Admin: 12/21/17 10:22 Dose: 81 mg Clopidogrel Bisulfate (Plavix) 75 mg PO DAILY [facility] Dextrose (D50w Vial) 50 ml IV.PUSH UNSCH PRN PRN Reason: PER HYPOGLYCEMIA PROTOCOL Glucagon (Glucagon Inj) 1 mg OTHER PRN PRN PRN Reason: for Hypoglycemia Protocol Heparin Sodium (Porcine) (Heparin Inj) 5,000 units SQ Q12H [facility] Last Admin: 12/20/17 22:33 Dose: 5,000 units Sodium Chloride (Ns Inj) 1,000 mls @ 70 mls/hr IV.CONT .[id number] [facility] Last Admin: 12/20/17 22:36 Dose: 70 mls/hr Insulin Human Regular (Novolin R Supplemental Scale) 0 units SQ ACHS AND 3AM NUSRAT; Protocol Last Admin: 12/21/17 08:00 Dose: Not Given Isosorbide Mononitrate (Imdur) 30 mg PO DAILY@0700 [facility] Last Admin: 12/21/17 10:27 Dose: 30 mg Lisinopril (Prinivil) 40 mg PO DAILY [facility] Last Admin: 12/21/17 10:22 Dose: 40 mg Metoprolol Tartrate (Lopressor) 25 mg PO DAILY [facility] Last Admin: 12/21/17 10:22 Dose: 25 mg Pantoprazole Sodium (Protonix) 40 mg PO DAILY [facility] Last Admin: 12/21/17 10:22 Dose: 40 mg Pravastatin Sodium (Pravachol) 40 mg PO HS [facility] Sodium Chloride (Ns Flush) 2 ml IV.FLUSH BID NUSRAT Last Admin: 12/21/17 10:23 Dose: Not Given Sodium Chloride (Ns Flush) 2 ml IV.FLUSH PRN PRN PRN Reason: FLUSH AFTER USING IV ACCESS Allergies Allergy/AdvReac Type Severity Reaction Status Date / Time No Known Allergies AdvReac Unknown Uncoded 11/12/17 16:48 Home Medications Medication Instructions Recorded Confirmed Type Aspir-81 81 mg PO DAILY 12/20/17 12/20/17 History Plavix 75 mg PO DAILY 12/20/17 12/20/17 History amlodipine 10 mg PO HS 12/20/17 12/20/17 History isosorbide mononitrate 30 mg PO DAILY 12/20/17 12/20/17 History lisinopril 40 mg PO DAILY 12/20/17 12/20/17 History metformin 500 mg PO BID 12/20/17 12/20/17 History metoprolol succinate 25 mg PO DAILY 12/20/17 12/20/17 History pantoprazole 40 mg PO DAILY 12/20/17 12/20/17 History pravastatin 40 mg PO HS 12/20/17 12/20/17 History Exam Vital signs: Vital Signs 12/20/17 16:28 12/20/17 17:38 12/20/17 18:55 Temperature Pulse Rate 114 H 114 H 103 H Respiratory Rate 16 18 18 Blood Pressure 140/65 185/90 H 132/87 Pulse Oximetry 96 98 97 12/20/17 22:06 12/20/17 22:10 12/21/17 00:00 Temperature 97.3 F L Pulse Rate 109 H 89 Respiratory Rate 18 18 Blood Pressure 121/54 L 151/67 H Pulse Oximetry 98 97 96 12/21/17 04:00 12/21/17 08:11 Temperature 99.2 F 98.8 F Pulse Rate 99 H 86 Respiratory Rate 18 20 Blood Pressure 171/79 H 145/72 H Pulse Oximetry 93 L 99 Intake & Output 12/20/17 12/21/17 12/21/17 18:59 06:59 18:59 Intake Total 1000 / 1000 Balance 1000 / 1000 Weight 57.4 kg 57.4 kg Intake: IV 1000 / 1000 NS Inj 1,000 ML @ Wide Open IV. 1000 / 1000 SIG BOLUS ONE Rx#:[id number] Oral 0 / 0 Other: # Voids 2 # Incontinent Bowel Movements 2 Narrative: GENERAL: Well-developed, well-nourished. Sitting up in wheelchair comfortably no apparent distress. Pleasantly confused. SKIN: Warm and dry. No rash. HEAD: Normocephalic. Atraumatic. EYES: Right pupil 4mm and left pupil 2 mm. No scleral icterus. No injection or drainage. ENT: No nasal bleeding or discharge. Mucous membranes pink and moist. NECK: Supple. Trachea midline. CARDIOVASCULAR: Regular rate and rhythm. S1, S2 noted. No murmur appreciated. RESPIRATORY: No accessory muscle use. Clear to auscultation. Breath sounds equal bilaterally. GASTROINTESTINAL: Abdomen soft, non-tender, nondistended. Normoactive bowel sounds x4. MUSCULOSKELETAL: No obvious deformities. Extremities without clubbing, cyanosis , or edema. NEUROLOGICAL: Awake and alert. No obvious cranial nerve deficits. Motor grossly within normal limits. 5/5 muscle strength in bilateral upper and lower extremities. Normal speech. - Constitutional no acute distress - Routine HEENT Exam Head: Present: normocephalic ENT: Present: mucous membranes moist Results - Labs CBC & Chem 7: 12/20/17 17:56 12/20/17 17:56 Labs: Laboratory Results - last 24 hr 12/20/17 12/20/17 12/20/17 17:56 17:56 17:56 CBC w Diff Auto diff final WBC 12.1 H RBC 4.48 L Hgb 11.7 L Hct 36.0 L MCV 80.3 MCH 26.1 L MCHC 32.6 RDW 13.8 Plt Count 197 MPV 9.1 Neut % (Auto) 94.1 H Lymph % (Auto) 3.2 L [place] % (Auto) 2.0 Eos % (Auto) 0.0 Baso % (Auto) 0.7 Neut # (Auto) 11.4 H Lymph # (Auto) 0.4 L [place] # (Auto) 0.2 Eos # (Auto) 0.0 Baso # (Auto) 0.1 WBC Differential . Differential Comment . PT 11.7 H INR 1.2 APTT 31.6 H Sodium 136 Potassium 4.4 Chloride 100 Carbon Dioxide 28.8 Anion Gap 7 BUN 15 Creatinine 1.00 Estimated GFR 72 L POC Glucose Random Glucose 265 H Calcium 8.5 Total Bilirubin 0.8 AST 23 ALT 17 Alkaline Phosphatase 110 Ammonia Total Creatine Kinase 82 Troponin I Less than 0.02 L Total Protein 7.7 Albumin 3.3 L Triglycerides Cholesterol LDL Cholesterol, Calc HDL Cholesterol Cholesterol/HDL Ratio Urine Color Urine Clarity Urine pH Ur Specific [place] Urine Protein Urine Glucose (UA) Urine Ketones Urine Occult Blood Urine Nitrate Urine Bilirubin Urine Urobilinogen Ur Leukocyte Esterase Urine WBC Ur Squamous Epith Cells Amorphous Sediment Micro UA Comment Urine Culture Comments Stl C.difficile Tox PCR St C. diff Tox Epid 027 Urine Opiates Screen Ur Barbiturates Screen Ur Amphetamines Screen U Benzodiazepines Scrn Urine Cocaine Screen U Cannabinoids Screen Serum Alcohol Less than 3 12/20/17 12/20/17 12/20/17 19:30 19:45 19:45 CBC w Diff WBC RBC Hgb Hct MCV MCH MCHC RDW Plt Count MPV Neut % (Auto) Lymph % (Auto) [place] % (Auto) Eos % (Auto) Baso % (Auto) Neut # (Auto) Lymph # (Auto) [place] # (Auto) Eos # (Auto) Baso # (Auto) WBC Differential Differential Comment PT INR APTT Sodium Potassium Chloride Carbon Dioxide Anion Gap BUN Creatinine Estimated GFR POC Glucose Random Glucose Calcium Total Bilirubin AST ALT Alkaline Phosphatase Ammonia 11 Total Creatine Kinase Troponin I Total Protein Albumin Triglycerides Cholesterol LDL Cholesterol, Calc HDL Cholesterol Cholesterol/HDL Ratio Urine Color Yellow Urine Clarity Clear Urine pH 5.5 Ur Specific [place] 1.020 Urine Protein Trace Urine Glucose (UA) 500 H Urine Ketones 15 H Urine Occult Blood Negative Urine Nitrate Negative Urine Bilirubin Negative Urine Urobilinogen 0.2 Ur Leukocyte Esterase Negative Urine WBC 0-5 Ur Squamous Epith Cells 0-5 Amorphous Sediment Few H Micro UA Comment Culture not ind Urine Culture Comments Culture not ind Stl C.difficile Tox PCR St C. diff Tox Epid 027 Urine Opiates Screen Neg Ur Barbiturates Screen Neg Ur Amphetamines Screen Neg U Benzodiazepines Scrn Neg Urine Cocaine Screen Neg U Cannabinoids Screen Neg Serum Alcohol 12/20/17 12/21/17 12/21/17 21:30 05:25 06:01 CBC w Diff WBC RBC Hgb Hct MCV MCH MCHC RDW Plt Count MPV Neut % (Auto) Lymph % (Auto) [place] % (Auto) Eos % (Auto) Baso % (Auto) Neut # (Auto) Lymph # (Auto) [place] # (Auto) Eos # (Auto) Baso # (Auto) WBC Differential Differential Comment PT INR APTT Sodium Potassium Chloride Carbon Dioxide Anion Gap BUN Creatinine Estimated GFR POC Glucose 129 H Random Glucose Calcium Total Bilirubin AST ALT Alkaline Phosphatase Ammonia Total Creatine Kinase Troponin I Total Protein Albumin Triglycerides 67 Cholesterol 71 L LDL Cholesterol, Calc 22 HDL Cholesterol 35.2 L Cholesterol/HDL Ratio 2.01 Urine Color Urine Clarity Urine pH Ur Specific [place] Urine Protein Urine Glucose (UA) Urine Ketones Urine Occult Blood Urine Nitrate Urine Bilirubin Urine Urobilinogen Ur Leukocyte Esterase Urine WBC Ur Squamous Epith Cells Amorphous Sediment Micro UA Comment Urine Culture Comments Stl C.difficile Tox PCR Negative St C. diff Tox Epid 027 Negative Urine Opiates Screen Ur Barbiturates Screen Ur Amphetamines Screen U Benzodiazepines Scrn Urine Cocaine Screen U Cannabinoids Screen Serum Alcohol 12/21/17 07:40 CBC w Diff WBC RBC Hgb Hct MCV MCH MCHC RDW Plt Count MPV Neut % (Auto) Lymph % (Auto) [place] % (Auto) Eos % (Auto) Baso % (Auto) Neut # (Auto) Lymph # (Auto) [place] # (Auto) Eos # (Auto) Baso # (Auto) WBC Differential Differential Comment PT INR APTT Sodium Potassium Chloride Carbon Dioxide Anion Gap BUN Creatinine Estimated GFR POC Glucose 134 H Random Glucose Calcium Total Bilirubin AST ALT Alkaline Phosphatase Ammonia Total Creatine Kinase Troponin I Total Protein Albumin Triglycerides Cholesterol LDL Cholesterol, Calc HDL Cholesterol Cholesterol/HDL Ratio Urine Color Urine Clarity Urine pH Ur Specific [place] Urine Protein Urine Glucose (UA) Urine Ketones Urine Occult Blood Urine Nitrate Urine Bilirubin Urine Urobilinogen Ur Leukocyte Esterase Urine WBC Ur Squamous Epith Cells Amorphous Sediment Micro UA Comment Urine Culture Comments Stl C.difficile Tox PCR St C. diff Tox Epid 027 Urine Opiates Screen Ur Barbiturates Screen Ur Amphetamines Screen U Benzodiazepines Scrn Urine Cocaine Screen U Cannabinoids Screen Serum Alcohol - Imaging Impressions Chest X-Ray 12/20/17 19:16 CONCLUSION: No acute cardiopulmonary disease. Head CT 12/20/17 19:16 CONCLUSION: 1. No acute abnormality seen. 2. Mild atrophy. 3. Decreased density in the cerebral white matter likely secondary to small vessel ischemic change. 4. Sphenoid sinus disease. Carotid Doppler Study 12/21/17 00:00 CONCLUSION: 1. Right Internal Carotid Artery: No significant stenosis or atherosclerotic plaque is visualized. 2. Left Internal Carotid Artery: No significant stenosis or atherosclerotic plaque is visualized. 3. Antegrade flow both vertebral arteries. Caprini VTE Risk Assessment Caprini VTE Risk Assessment: Moderate/High Risk (score >= 2) Caprini Risk Assessment Model: Point Value = 1 Point Value = 2 Point Value = 3 Point Value = 5 Age 41-60 Minor surgery BMI > 25 kg/m2 Swollen legs Varicose veins or History of unexplained or recurrent spontaneous Oral contraceptives or hormone replacement Sepsis (< 1 month) Serious lung disease, including pneumonia (< 1 month) Abnormal pulmonary function Acute myocardial infarction Congestive heart failure (< 1 month) History of inflammatory bowel disease Medical patient at bed rest Age 61-74 Arthroscopic surgery Major open surgery (> 45 min) Laparoscopic surgery (> 45 min) Malignancy Confined to bed (> 72 hours) Immobilizing plaster cast Central venous access Age >= 75 History of VTE Family history of VTE Factor V Leiden Prothrombin [id number] Lupus anticoagulant Anticardiolipin antibodies Elevated serum homocysteine Heparin-induced thrombocytopenia Other congenital or acquired thrombophilia Stroke (< 1 month) Elective arthroplasty Hip, pelvis, or leg fracture Acute spinal cord injury (< 1 month) Prophylaxis Regimen: Total Risk Factor Score Risk Level Prophylaxis Regimen 0-1 Low Early ambulation 2 Moderate Order ONE of the following: *Sequential Compression Device (SCD) *Heparin 5000 units SQ BID 3-4 Higher Order ONE of the following medications: *Heparin 5000 units SQ TID *Enoxaparin/Lovenox 40 mg SQ daily (WT < 150 kg, CrCl > 30 mL/min) *Enoxaparin/Lovenox 30 mg SQ daily (WT < 150 kg, CrCl > 10-29 mL/min) *Enoxaparin/Lovenox 30 mg SQ BID (WT < 150 kg, CrCl > 30 mL/min) AND/OR *Sequential Compression Device (SCD) 5 or more Highest Order ONE of the following medications: *Heparin 5000 units SQ TID (Preferred with Epidurals) *Enoxaparin/Lovenox 40 mg SQ daily (WT < 150 kg, CrCl > 30 mL/min) *Enoxaparin/Lovenox 30 mg SQ daily (WT < 150 kg, CrCl > 10-29 mL/min) *Enoxaparin/Lovenox 30 mg SQ BID (WT < 150 kg, CrCl > 30 mL/min) AND *Sequential Compression Device (SCD) Assessment and Plan - Assessment (1) Transient ischemic attack Code(s): G45.9 - Transient cerebral ischemic attack, unspecified Status: Acute (2) Encephalopathy acute Code(s): G93.40 - Encephalopathy, unspecified Status: Acute - Plan 82-year-old male with past medical history significant for bladder cancer, hypertension, history of CVA/TIA and diabetes admitted with altered mental status. Prior hospitalization in November of this year. Encephalopathy, with underlying dementia or cognitive impairment Rule out CVA/TIA - Patient was found lying on the ground at home with apparent AMS - Head CT negative. - Awaiting MRI brain. Follow. - Carotid US with no significant vaso-occlusive dz - Echo from November 2016 with EF 55-60% - Lipid panel negative. - Neuro consulted, input and recommendations pending. - Fall and seizure precautions. - PT ordered, input and recs pending. Diarrhea: C diff negative. Ensure hydration. Order for Imodium. Hypertension, chronic. - Will allow permissive hypertension for now. History of Type 2 DM - A1c checked last month, 7.7. - Continue on Accu-Cheks and insulin sliding scale. Social situation - Prior DCF case last month, now closed. - Case management assisting with discharge planning. DVT prophylaxis: Heparin sq after MRI resulted.
[2017-12-21] MEDS ORDERED: Loperamide 2 MG Capsule PO PRN (11:14)
[2017-12-21] MEDS: Heparin - SQ 10,000 UNITS/ML Vial SQ SCH ×2 (11:45→21:51)
--- NOTE | 2017-12-21 12:26 | MB ---
cc: Marcos Tineo MD DATE: 12/21/2017 HISTORY OF PRESENT ILLNESS: This is an 82-year-old right-handed man with hypertension. He tells me he has diabetes, not a very good historian, does not know the month and the year. Looking at the chart, he was brought into the ER for change in mental status. They noted a history of hypertension, diabetes, stroke, seizure, found on the ground unresponsive, delirious for 3 days. He says he has been having bad diarrhea. PAST MEDICAL HISTORY: As above. SOCIAL HISTORY: Does smoke. Moderate drinker. No drugs. MEDICATIONS AT HOME: Amlodipine, pravastatin, 81 of aspirin, Protonix, Isosorbide, lisinopril, Plavix, metoprolol, metformin. On reviewing the old chart, he was seen by Dr. Demarco, Dr. Wills and Dr. Knott in the past, most recently Dr. Knott in November of 2017. He was brought in for slurred speech, confusion. He noted poor memory. He thought of hypertensive encephalopathy. MRI showed no acute stroke. Carotid ultrasound was negative. He thought there was some underlying dementia. Past workup for labs has included a negative urine drug screen, negative UA, normal B12 and thyroid. Normal LDL cholesterol. Normal coags. Normal CBCs. Normal ABG in 2014. He had a carotid ultrasound done in November of this year that was negative. He had an MRI of the brain done at that time, it showed some chronic changes. He had an MRA of the [place] in April 2017 that was normal. MRI of the brain at that time showed no stroke and another MRI in 2015 showed no stroke. He had an echocardiogram done on 11/14/2017, showed ejection fraction was normal, LA size normal, all negative. He had a nuclear scan of his heart done in 2015 that was normal. PHYSICAL EXAMINATION: VITAL SIGNS: Afebrile, 82, 20, 140/68, sinus rhythm. NEUROLOGIC: He is awake and alert. He does not know the year or the month. His speech is fluent. He is not aphasic. Pupils are equal. Visual sharp are full. Face is symmetric. Tongue was midline. He had normal strength in upper and lower extremities bilaterally. Toes downgoing bilaterally. DTRs trace throughout. LABORATORY DATA: White count is 12. CBC is otherwise normal. C. difficile was negative. UA is negative except for 500 of glucose. Basic metabolic profile, LFTs are normal. Troponin, CPK, albumin, LDL cholesterol, coags, urine drug screen all normal. IMAGING STUDIES: He had a carotid ultrasound which is negative. He had a CAT scan of his brain done which is normal. He had a chest x-ray done which was negative. Review of his MRI from 11/13/2017 showed some white matter changes bilaterally, but no cortically based infarct. Looks like he probably has a cyst in the right frontal horn of the lateral ventricle. No hemorrhages are noted and that change in the ventricle was stable compared to prior MRIs. IMPRESSION AND RECOMMENDATIONS: He has significant dementia. We can check an EEG on him. I doubt this represents a stroke. We will check some blood work for dementia. He will followup in the office with Dr. Knott in a few weeks or his dementia. Also need to check an EEG on him, but neuro-orosco, he looks like he could be discharged if steady on his feet. We will have PT ambulate him. If he did have a syncopal episode, Holter monitor will be ordered. He does have some underlying dementia and this needs to be addressed with medication outpatient. We will also have a standing blood pressure checked. MD LESA Clayton/YANDEL , 11:59 AM , 12:24 PM
[2017-12-21] MEDS: Sod Chloride 0.9% Inj 1,000 ML IV.CONT SCH (12:40)
--- NOTE | 2017-12-21 12:59 | MR ---
EXAM DATE: 12/21/2017 12:16 PM EDT AGE/SEX: 82 years / Male INDICATIONS: CVA. CLINICAL DATA: This is the patient's initial encounter. Patient reports that signs and symptoms have been present for 1 day and indicates a pain score of 0/10. MEDICAL/SURGICAL HISTORY: Hypertension. Diabetes mellitus type II. Tonsillectomy. Prostatecto my. COMPARISON: [facility], CT HEAD W/O CONTRAST, 12/20/2017. . TECHNIQUE: Multiplanar, multisequence examination of the brain was performed without contrast. FINDINGS: Cerebrum: The ventricles are normal for age. There is bilateral cortical atrophy. No evidence of mi dline shift, mass lesion, hemorrhage. There is evidence of a small focal area of acute infarction job ng the high right cerebral vertex. This is best demonstrated on the diffusion-weighted images. No ex traaxial fluid collections are seen. The pituitary gland and suprasellar cistern are normal in confi guration. White Matter: There is moderate diffuse chronic white matter changes bilaterally. Posterior Fossa: The cerebellum and brainstem are intact. There are chronic changes noted in the midb rain. The 4th ventricle is midline. The cerebellopontine angle is unremarkable. The cerebellar tons ils are normal in position. Diffusion Imaging: Focal area of increased signal is noted high along the right cerebral vertex sugg estive of a focal acute to subacute infarct. Extracranial: The visualized portions of the orbits are unremarkable. There is some chronic sinus d isease in the left maxillary sinus. There is chronic sinus disease in the sphenoid sinuses. CONCLUSION: 1. Small focal area of increased signal high along the right cerebral vertex on the diffusion-weight ed images characteristic for a small focal acute to subacute infarct. 2. Diffuse bilateral cortical atrophy and moderate diffuse chronic white matter changes are noted bi laterally. 3. Evidence of chronic sinus disease in the left maxillary sinus and sphenoid sinuses. Electronically signed by: Alvaro Loredo MD 12/21/2017 12:57 PM EDT
--- NOTE | 2017-12-21 13:00 | MR ---
EXAM DATE: 12/21/2017 12:16 PM EDT AGE/SEX: 82 years / Male INDICATIONS: CVA. CLINICAL DATA: This is the patient's initial encounter. Patient reports that signs and symptoms have been present for 1 day and indicates a pain score of 0/10. MEDICAL/SURGICAL HISTORY: Hypertension. Diabetes mellitus type II. Tonsillectomy. Prostatecto my. COMPARISON: No prior exams available for comparison. TECHNIQUE: 3D [id number] MRA was performed. Source images, multiplanar STS MIP, and 3D volum e MIP reconstructions were reviewed. FINDINGS: There is excellent visualization of the major intracranial arteries out to the second-order branch ve ssels. There is no evidence for aneurysm, vessel truncation or stenosis, and no evidence for vascula r malformation. CONCLUSION: 1. Unremarkable MRA of the brain. Electronically signed by: Alvaro Loredo MD 12/21/2017 12:58 PM EDT
--- NOTE | 2017-12-21 13:17 | ECG ---
Date Performed: 12/20/2017 Time Performed: 19:25:09 PTAGE: 82 years EKG: Sinus rhythm POSSIBLE LEFT ATRIAL ENLARGEMENT MARKED LEFT AXIS DEVIATION POSSIBLE RIGHT VENTRICULAR CONDUCTION DE LAY SEPTAL MYOCARDIAL INFARCTION Q waves now noted in V2, cannot rule out inoccurent injury Clinical correlation is recommended ABNORMAL ECG PREVIOUS TRACING : 11/12/2017 17.35 DOCTOR: Bill Beth Interpretating Date/Time 12/21/2017 13:14:57
--- NOTE | 2017-12-21 14:32 | MG ---
cc: Jayda Chatterjee MD DATE OF : 1935 AGE: [age] years old. EEG NUMBER: [id number] REFERRING PHYSICIAN: Dr. De ROOM: [id number] NOTE: With photic stimulation only. Awake. INDICATIONS: The patient found on the ground unresponsive by grandson and appeared to be delirious, incontinence of bowel. History of stroke, hypertension, seizures. MEDICATIONS: On insulin, heparin. DESCRIPTION OF RECORD: There is overall background slowing, predominantly at 6 Hz. Theta frequency, variable micro voltage but overall looks like theta range. EKG is artifactual but at times there looks like there may be a dysrhythmia. No epileptiform features. A lot of eye movement artifact. Hyperventilation was not performed. Photic stimulation with a mild driving response. IMPRESSION: Abnormal EEG due to mild slowing of background consistent with what looks like an encephalopathic process. Of note, there was some arrhythmia noted in the EKG portion that if unknown needs followup. No epileptiform features were seen. Clinical correlation. MD BLU Lorenzo/YANDEL , 02:12 PM , 02:30 PM
[2017-12-21 16:15] LABS: Hemoglobin A1c 7.9 % (4.3-6.0)
[2017-12-21] MEDS: amLODIPine 10 MG Tablet PO SCH (21:51)
[2017-12-22] MEDS: Insulin NovoLIN Regular Correctional Sugar Inj SQ SCH ×5 (02:54→22:19)
[2017-12-22] MEDS: Sod Chloride 0.9% Inj 1,000 ML IV.CONT SCH ×3 (03:07→22:21)
[2017-12-22] MEDS: Isosorbide Mononitrate 30 MG ER 24HR Tablet (Imdur) PO SCH (06:18)
--- NOTE | 2017-12-22 07:10 | P.PNNEU ---
Subjective Subjective Comments: sr Active Medications: Active Medications Amlodipine Besylate (Norvasc) 10 mg PO HS [facility] Last Admin: 12/21/17 21:51 Dose: 10 mg Aspirin (Aspirin Chew) 81 mg PO DAILY [facility] Last Admin: 12/21/17 10:22 Dose: 81 mg Clopidogrel Bisulfate (Plavix) 75 mg PO DAILY [facility] Last Admin: 12/21/17 11:45 Dose: Not Given Dextrose (D50w Vial) 50 ml IV.PUSH UNSCH PRN PRN Reason: PER HYPOGLYCEMIA PROTOCOL Glucagon (Glucagon Inj) 1 mg OTHER PRN PRN PRN Reason: for Hypoglycemia Protocol Heparin Sodium (Porcine) (Heparin Inj) 5,000 units SQ Q12H [facility] Last Admin: 12/21/17 21:51 Dose: 5,000 units Sodium Chloride (Ns Inj) 1,000 mls @ 70 mls/hr IV.CONT .[id number] [facility] Last Admin: 12/22/17 03:07 Dose: 70 mls/hr Insulin Human Regular (Novolin R Supplemental Scale) 0 units SQ ACHS AND 3AM [facility]; Protocol Last Admin: 12/22/17 02:54 Dose: Not Given Isosorbide Mononitrate (Imdur) 30 mg PO DAILY@0700 [facility] Last Admin: 12/22/17 06:18 Dose: 30 mg Lisinopril (Prinivil) 40 mg PO DAILY [facility] Last Admin: 12/21/17 10:22 Dose: 40 mg Loperamide HCl (Imodium) 2 mg PO Q6H PRN PRN Reason: DIARRHEA Metoprolol Tartrate (Lopressor) 25 mg PO DAILY [facility] Last Admin: 12/21/17 10:22 Dose: 25 mg Pantoprazole Sodium (Protonix) 40 mg PO DAILY [facility] Last Admin: 12/21/17 10:22 Dose: 40 mg Pravastatin Sodium (Pravachol) 40 mg PO HS [facility] Last Admin: 12/21/17 21:51 Dose: 40 mg Sodium Chloride (Ns Flush) 2 ml IV.FLUSH BID [facility] Last Admin: 12/21/17 20:29 Dose: Not Given Sodium Chloride (Ns Flush) 2 ml IV.FLUSH PRN PRN PRN Reason: FLUSH AFTER USING IV ACCESS Allergies/Adverse Reactions: Allergies Allergy/AdvReac Type Severity Reaction Status Date / Time No Known Allergies AdvReac Unknown Uncoded 11/12/17 16:48 Physical Exam Vital signs: Vital Signs 12/21/17 08:00 12/21/17 08:11 12/21/17 11:30 Temperature 98.8 F 98.6 F Pulse Rate 86 86 82 Respiratory Rate 20 20 Blood Pressure 145/72 H 140/68 Pulse Oximetry 99 98 12/21/17 12:34 12/21/17 12:35 12/21/17 12:36 Temperature Pulse Rate 82 84 79 Respiratory Rate Blood Pressure 133/76 122/64 115/59 L Pulse Oximetry 12/21/17 15:14 12/21/17 22:40 12/22/17 01:45 Temperature 98.8 F 96.4 F L 98.3 F Pulse Rate 80 81 72 Respiratory Rate 20 18 18 Blood Pressure 142/70 H 108/56 L 110/56 L Pulse Oximetry 98 97 96 12/22/17 06:09 Temperature 97.7 F Pulse Rate 78 Respiratory Rate 18 Blood Pressure 112/56 L Pulse Oximetry 78 L Intake & Output 12/21/17 12/22/17 12/22/17 18:59 06:59 18:59 Intake Total 1000 / 1000 1000 / 1000 Output Total 600 / 600 604 / 604 Balance 400 / 400 396 / 396 Weight 57.4 kg Intake: IV 1000 / 1000 1000 / 1000 NS Inj 1,000 ML @ 70 mls/hr IV. 1000 / 1000 1000 / 1000 CONT .[id number] [facility] Rx#: [id number] Oral 0 / 0 Output: Urine 600 / 600 600 / 600 Urine/Stool Mix 4 / 4 Other: # Incontinent Voids 2 Date of Last Bowel Movement 12/21/17 # Bowel Movements 2 # Incontinent Bowel Movements 4 Objective Laboratory Results - last 24 hr 12/21/17 12/21/17 12/21/17 05:25 05:25 07:40 POC Glucose 134 H Hemoglobin A1c 7.9 H Triglycerides 67 Cholesterol 71 L LDL Cholesterol, Calc 22 HDL Cholesterol 35.2 L Cholesterol/HDL Ratio 2.01 Eosinophil Stool Smear 12/21/17 12/21/17 12/21/17 12:36 16:48 20:51 POC Glucose 155 H 163 H 279 H Hemoglobin A1c Triglycerides Cholesterol LDL Cholesterol, Calc HDL Cholesterol Cholesterol/HDL Ratio Eosinophil Stool Smear 12/21/17 12/22/17 23:35 02:41 POC Glucose 143 H Hemoglobin A1c Triglycerides Cholesterol LDL Cholesterol, Calc HDL Cholesterol Cholesterol/HDL Ratio Eosinophil Stool Smear None seen Review/Management - Review/Management Plan: imp mri shows small r frontal infarct acute echo neg labs ok ldl trop neg sr us and echo nl eeg neg i dw nurse no problems plan is loop recorder as he already is on plavix and asa and i dont want to put on coumadin at this point without further evidence of arythmia i sarah nurse he could dc after loop in if cards ow clears if any afib found then i would start anticoag akin will fu monday if still here
--- NOTE | 2017-12-22 08:11 | P.PNIM ---
Subjective Interval history: Follow up CVA. Patient seen and examined today, patient will be transported to the main hospital to undergo a loop recorder today. Patient denies any acute events overnight. Diarrhea has continued. He denies any chest pain or shortness of breath. Vital signs are stable. Afebrile. Physical Exam Vital signs: Vital Signs 12/21/17 08:11 12/21/17 11:30 12/21/17 12:34 Temperature 98.8 F 98.6 F Pulse Rate 86 82 82 Respiratory Rate 20 20 Blood Pressure 145/72 H 140/68 133/76 Pulse Oximetry 99 98 12/21/17 12:35 12/21/17 12:36 12/21/17 15:14 Temperature 98.8 F Pulse Rate 84 79 80 Respiratory Rate 20 Blood Pressure 122/64 115/59 L 142/70 H Pulse Oximetry 98 12/21/17 22:40 12/22/17 01:45 12/22/17 06:09 Temperature 96.4 F L 98.3 F 97.7 F Pulse Rate 81 72 78 Respiratory Rate 18 18 18 Blood Pressure 108/56 L 110/56 L 112/56 L Pulse Oximetry 97 96 78 L Intake & Output 12/21/17 12/22/17 12/22/17 18:59 06:59 18:59 Intake Total 1000 / 1000 1000 / 1000 Output Total 600 / 600 604 / 604 Balance 400 / 400 396 / 396 Weight 57.4 kg Intake: IV 1000 / 1000 1000 / 1000 NS Inj 1,000 ML @ 70 mls/hr IV. 1000 / 1000 1000 / 1000 [facility] .[id number] [facility] Rx#: [id number] Oral 0 / 0 Output: Urine 600 / 600 600 / 600 Urine/Stool Mix 4 / 4 Other: # Incontinent Voids 2 Date of Last Bowel Movement 12/21/17 # Bowel Movements 2 # Incontinent Bowel Movements 4 Narrative: GENERAL: Well-developed, well-nourished. Sitting up in wheelchair comfortably no apparent distress. Pleasantly confused. SKIN: Warm and dry. No rash. HEAD: Normocephalic. Atraumatic. EYES: Right pupil 4mm and left pupil 2 mm. No scleral icterus. No injection or drainage. ENT: No nasal bleeding or discharge. Mucous membranes pink and moist. NECK: Supple. Trachea midline. CARDIOVASCULAR: Regular rate and rhythm. S1, S2 noted. No murmur appreciated. RESPIRATORY: No accessory muscle use. Clear to auscultation. Breath sounds equal bilaterally. GASTROINTESTINAL: Abdomen soft, non-tender, nondistended. Normoactive bowel sounds x4. MUSCULOSKELETAL: No obvious deformities. Extremities without clubbing, cyanosis , or edema. NEUROLOGICAL: Awake and alert. No obvious cranial nerve deficits. Motor grossly within normal limits. 5/5 muscle strength in bilateral upper and lower extremities. Normal speech - Constitutional no acute distress Results - Labs CBC & Chem 7: 12/20/17 17:56 12/20/17 17:56 Laboratory Results - last 24 hr 12/21/17 12/21/17 12/21/17 05:25 05:25 12:36 POC Glucose 155 H Hemoglobin A1c 7.9 H Triglycerides 67 Cholesterol 71 L LDL Cholesterol, Calc 22 HDL Cholesterol 35.2 L Cholesterol/HDL Ratio 2.01 Eosinophil Stool Smear 12/21/17 12/21/17 12/21/17 16:48 20:51 23:35 POC Glucose 163 H 279 H Hemoglobin A1c Triglycerides Cholesterol LDL Cholesterol, Calc HDL Cholesterol Cholesterol/HDL Ratio Eosinophil Stool Smear None seen 12/22/17 02:41 POC Glucose 143 H Hemoglobin A1c Triglycerides Cholesterol LDL Cholesterol, Calc HDL Cholesterol Cholesterol/HDL Ratio Eosinophil Stool Smear - Imaging Impressions Chest X-Ray 12/20/17 19:16 CONCLUSION: No acute cardiopulmonary disease. Carotid Doppler Study 12/21/17 00:00 CONCLUSION: 1. Right Internal Carotid Artery: No significant stenosis or atherosclerotic plaque is visualized. 2. Left Internal Carotid Artery: No significant stenosis or atherosclerotic plaque is visualized. 3. Antegrade flow both vertebral arteries. Head MRI 12/21/17 22:16 CONCLUSION: 1. Small focal area of increased signal high along the right cerebral vertex on the diffusion-weighted images characteristic for a small focal acute to subacute infarct. 2. Diffuse bilateral cortical atrophy and moderate diffuse chronic white matter changes are noted bilaterally. 3. Evidence of chronic sinus disease in the left maxillary sinus and sphenoid sinuses. Head MRA 12/21/17 22:16 CONCLUSION: 1. Unremarkable MRA of the brain. Assessment and Plan - Assessment (1) Transient ischemic attack Code(s): G45.9 - Transient cerebral ischemic attack, unspecified Status: Acute (2) Encephalopathy acute Code(s): G93.40 - Encephalopathy, unspecified Status: Acute - Plan 82-year-old male with past medical history significant for bladder cancer, hypertension, history of CVA/TIA and diabetes admitted with altered mental status. Prior hospitalization in November of this year. Encephalopathy, with underlying dementia or cognitive impairment Rule out CVA/TIA - Patient was found lying on the ground at home with apparent AMS. - Head CT negative. -MRI/MRA showing small focal area along the right cerebral vertex characteristic of a small focal acute to subacute infarct. There is diffuse bilateral cortical atrophy. - Carotid US with no significant vaso-occlusive dz - Echo from November 2016 with EF 55-60% - Lipid panel negative. - Neuro consulted, appreciate input recommendations. [facility] placement. This could be the cause of CVA. - Fall and seizure precautions. - PT ordered, recommendations for rehab/home health care. Diarrhea: C diff negative. Ensure hydration. Order for Imodium. Stool studies pending. Rule out Shigella. Hypertension, chronic. -Blood pressure stable. History of Type 2 DM - A1c checked last month, 7.7. - Continue on Accu-Cheks and insulin sliding scale. DVT prophylaxis: Heparin.
--- NOTE | 2017-12-22 09:58 | MB ---
cc: Corbin Quigley MD DATE: 12/22/2017 REASON FOR CONSULTATION: CVA. HISTORY OF PRESENT ILLNESS: The patient is a pleasant 82-year-old gentleman with some dementia, CVA, hypertension and seizure history, who presented with altered mental status. His MRI showed a small acute to subacute infarct and I have been asked to perform a loop recorder to exclude atrial fibrillation as the patient was already on antiplatelet medication. The patient is currently asymptomatic, denying any chest pain, shortness of breath, lightheadedness, dizziness. PAST MEDICAL HISTORY: CVA, hypertension, diabetes, seizure. CURRENT MEDICATIONS: 1. Amlodipine. 2. Aspirin. 3. Plavix. 4. Lopressor 25 mg daily. 5. Protonix. ALLERGIES: NO KNOWN DRUG ALLERGIES. PHYSICAL EXAMINATION: VITAL SIGNS: Afebrile, pulse 80, respiratory rate 20, BP 142/70, sating 98 on room air. GENERAL: Pleasant, thin, elderly gentleman in no distress. NECK: No JVD. LUNGS: Clear to auscultation bilaterally. CARDIOVASCULAR: Regular rate and rhythm. No murmurs appreciated. ABDOMEN: Benign. EXTREMITIES: No edema. LABORATORY DATA: White count 12.1, hematocrit 36.0, platelets 197. Sodium 136, potassium 4.4, chloride 100, bicarbonate 28.8, BUN 15, creatinine 1.00, glucose 265. EKG showed left atrial enlargement, in sinus rhythm. IMPRESSION: Cerebrovascular accident. The patient had a CVA with left atrial enlargement per his EKG. He is already on antiplatelet medication. PLAN: A loop recorder seems reasonable to exclude atrial fibrillation as a source of his CVA. The patient agrees to proceed. Once the loop recorder has been inserted, he could be discharged home to follow up with me once the primary medical team has completed their workup and assessment. Thank you again for the opportunity to participate in this patient's care. MD NADIA Overton/YANDEL , 09:44 AM , 09:57 AM
[2017-12-22] MEDS ORDERED: Chlorhexidine Gluconate 2% 1 Pack (2 Cloths) TOPICAL SCH (10:00)
[2017-12-22] MEDS ORDERED: Mupirocin 2% Nasal Oint Topical Syringe EACH NARE SCH (10:00)
[2017-12-22] MEDS ORDERED: ceFAZolin 2 GM Premix Inj 2 GM/50 ML PIGGYBACK IV.SIG SCH (10:01)
--- NOTE | 2017-12-22 10:15 | MR ---
cc: Corbin Quigley MD DATE: 12/22/2017 DATE OF PROCEDURE: 12/22/2017. INDICATIONS: CVA. DESCRIPTION OF PROCEDURE: The patient was brought to the DOC Unit. After informed consent was obtained, a [employer]-IO LINQ loop recorder was inserted subcutaneously to the left chest. The patient tolerated the procedure well without any apparent complications. Tachy-delbert pause and atrial fibrillation detection was enabled. The initial R-wave was 0.46 millivolts. The serial number was [id number]. Corbin Quigley MD NADIA/YANDEL , 10:08 AM , 10:13 AM
[2017-12-22] MEDS: Heparin - SQ 10,000 UNITS/ML Vial SQ SCH ×2 (15:05→22:15)
[2017-12-22] MEDS: Lisinopril 20 MG Tablet PO SCH (15:07)
[2017-12-22] MEDS: Metoprolol Tartrate 25 MG Tablet PO SCH (15:07)
[2017-12-22] MEDS: amLODIPine 10 MG Tablet PO SCH (22:16)
[2017-12-22] MEDS: Ciprofloxacin 500 MG Tablet PO SCH (22:17)
[2017-12-23] MEDS: Insulin NovoLIN Regular Correctional Sugar Inj SQ SCH ×5 (03:14→21:33)
[2017-12-23] MEDS: Isosorbide Mononitrate 30 MG ER 24HR Tablet (Imdur) PO SCH (06:20)
[2017-12-23 07:59] LABS: Baso % (Auto) 0.5 % (0.0-2.0); Eos # (Auto) 0.1 th/mm3 (0.0-0.4); Eos % (Auto) 2.5 % (0.0-4.0); Hematocrit 28.6 % (39.0-51.0); Hemoglobin 9.5 gm/dL (13.0-17.0); Lymph # (Auto) 0.7 th/mm3 (1.0-4.8); Lymph % (Auto) 20.4 % (9.0-44.0); Mean Corpuscular HGB Conc 33.3 % (32.0-36.0); Mean Corpuscular Hemoglobin 26.2 pg (27.0-34.0); Mean Corpuscular Volume 78.6 fL (80.0-100.0); Mean Platelet Volume 8.5 fL (7.0-11.0); Mono # (Auto) 0.3 th/mm3 (0.0-0.9); Mono % (Auto) 8.1 % (0.0-8.0); Neut # (Auto) 2.1 th/mm3 (1.8-7.7); Neut % (Auto) 68.5 % (16.0-70.0); Platelet Count 193 th/mm3 (150-450); Red Blood Count 3.64 mil/mm3 (4.50-5.90); Red Cell Distribution Width 13.8 % (11.6-17.2); White Blood Count 3.2 th/mm3 (4.0-11.0)
--- NOTE | 2017-12-23 08:42 | HM ---
Date Performed: 12/21/2017 Time Performed: 17:06:00 HOOKUP DATE: 12/21/17 05:06:00 PM Frannie ANALYSIS START TIME: 12/21/2017 5:11:00 PM ANALYSIS END TIME: 12/22/2017 10:07:01 AM PATIENT AGE: 82 PATIENT HEIGHT PATIENT WEIGHT DRUG LIST PATIENT DIAGNOSIS: SEIZURE/DEMENTIA/ENCEPHALOPATHY TEST NARRATIVE: The patient's average heart rate was 83 BPM. Heart rates greater than 120 B PM were noted < 1% of the time. No episodes of bradycardia were noted. No pauses exceeding 2.0 s econds were noted. 414 ventricular ectopics, which represented < 1% of the total beat count, were noted. The highest ventricular ectopic frequency occurred from 06:00 AM to 07:00 AM Fri. During th is time 134 VE(s) occurred. Ventricular ectopics were observed as 410 isolated beat(s) and as 2 coup let(s). No runs were noted. Some of the ventricular beats occurred in bigeminal cycles. 7149 mcdaniel praventricular ectopics, which represented 9% of the total beat count, were noted. The highest supra ventricular ectopic frequency occurred from 08:00 AM to 09:00 AM Fri. During this time 1210 SVE(s) o ccurred. No episodes of ST depression (defined as -1.0 mm or more) were noted in channel 1. No e pisodes of ST depression (defined as -1.0 mm or more) were noted in channel 2. No episodes of ST dep ression (defined as -1.0 mm or more) were noted in channel 3. NO DIARY RETURNED TEST INTERPRETATION: Sinus rhythm PACs PVCs Short runs of supraventricular tachycardia No pause No ventricular tachycardia No pause ob served There was no entry in the diary Signed by : Cori Tirado
[2017-12-23] MEDS: Sod Chloride 0.9% Inj 1,000 ML IV.CONT SCH ×3 (09:00→21:49)
[2017-12-23] MEDS: Metoprolol Tartrate 25 MG Tablet PO SCH (09:01)
[2017-12-23] MEDS: Lisinopril 20 MG Tablet PO SCH (09:01)
[2017-12-23] MEDS: Ciprofloxacin 500 MG Tablet PO SCH ×2 (09:01→21:33)
[2017-12-23] MEDS: Heparin - SQ 10,000 UNITS/ML Vial SQ SCH ×3 (09:05→21:33)
--- NOTE | 2017-12-23 09:30 | P.PNIM ---
Subjective Interval history: Follow-up diarrhea secondary to Shigella, CVA. Patient seen and examined, lying in bed comfortably no apparent distress. Pleasant and alert and oriented. Still having liquid stools, reports of 3 bowel movements this morning. Physical Exam Vital signs: Vital Signs 12/22/17 20:00 12/23/17 00:00 12/23/17 07:50 Temperature 96 F L 96.3 F L 97.6 F Pulse Rate 63 60 64 Respiratory Rate 20 20 20 Blood Pressure 103/63 100/66 111/60 Pulse Oximetry 99 96 92 L Intake & Output 12/22/17 12/23/17 12/23/17 18:59 06:59 18:59 Intake Total 1770 / 1770 340 / 340 1850 / 1850 Balance 1770 / 1770 340 / 340 1850 / 1850 Intake: IV 1050 / 1050 1850 / 1850 NS Inj 1,000 ML @ 70 mls/hr IV. 1000 / 1000 1850 / 1850 CONT .[id number] [facility] Rx#: [id number] Ancef 2 GM Premix Inj 2 gm In 50 / 50 50 ml @ 200 mls/hr IV.SIG [employer] [facility] Rx#:[id number] Oral 720 / 720 340 / 340 Other: # Voids 3 2 Date of Last Bowel Movement 12/22/17 # Bowel Movements 3 1 Narrative: GENERAL: Well-developed, well-nourished. Sitting up in wheelchair comfortably no apparent distress. SKIN: Warm and dry. No rash. HEAD: Normocephalic. Atraumatic. EYES: Right pupil 4mm and left pupil 2 mm. No scleral icterus. No injection or drainage. ENT: No nasal bleeding or discharge. Mucous membranes pink and moist. NECK: Supple. Trachea midline. CARDIOVASCULAR: Regular rate and rhythm. S1, S2 noted. No murmur appreciated. RESPIRATORY: No accessory muscle use. Clear to auscultation. Breath sounds equal bilaterally. GASTROINTESTINAL: Abdomen soft, non-tender, nondistended. Normoactive bowel sounds x4. MUSCULOSKELETAL: No obvious deformities. Extremities without clubbing, cyanosis , or edema. NEUROLOGICAL: Awake and alert. No obvious cranial nerve deficits. Motor grossly within normal limits. 5/5 muscle strength in bilateral upper and lower extremities. Normal speech Results - Labs CBC & Chem 7: 12/23/17 07:20 12/20/17 17:56 Laboratory Results - last 24 hr 12/21/17 12/22/17 12/22/17 13:15 15:58 22:06 CBC w Diff WBC RBC Hgb Hct MCV MCH MCHC RDW Plt Count MPV Neut % (Auto) Lymph % (Auto) [place] % (Auto) Eos % (Auto) Baso % (Auto) Neut # (Auto) Lymph # (Auto) [place] # (Auto) Eos # (Auto) Baso # (Auto) WBC Differential Differential Comment POC Glucose 198 H 270 H KELL Screen Neg 12/23/17 12/23/17 12/23/17 03:11 07:20 07:36 CBC w Diff Auto diff final WBC 3.2 L RBC 3.64 L Hgb 9.5 L Hct 28.6 L MCV 78.6 L MCH 26.2 L MCHC 33.3 RDW 13.8 Plt Count 193 MPV 8.5 Neut % (Auto) 68.5 Lymph % (Auto) 20.4 [place] % (Auto) 8.1 H Eos % (Auto) 2.5 Baso % (Auto) 0.5 Neut # (Auto) 2.1 Lymph # (Auto) 0.7 L [place] # (Auto) 0.3 Eos # (Auto) 0.1 Baso # (Auto) 0.0 WBC Differential . Differential Comment . POC Glucose 192 H 156 H KELL Screen Microbiology 12/21/17 23:35 Stool Enteric Pathogens (PCR) - Final Shigella species 12/21/17 23:35 Stool Stool for WBCs - Final Rare WBC's Assessment and Plan - Assessment (1) Transient ischemic attack Code(s): G45.9 - Transient cerebral ischemic attack, unspecified Status: Acute (2) Encephalopathy acute Code(s): G93.40 - Encephalopathy, unspecified Status: Acute - Plan 82-year-old male with past medical history significant for bladder cancer, hypertension, history of CVA/TIA and diabetes admitted with altered mental status. Prior hospitalization in November of this year. Acute CVA Encephalopathy, with underlying dementia or cognitive impairment - Patient was found lying on the ground at home with apparent AMS. - Head CT negative. - MRI/MRA showing small focal area along the right cerebral vertex characteristic of a small focal acute to subacute infarct. There is diffuse bilateral cortical atrophy. - Carotid US with no significant vaso-occlusive dz - Echo from November 2016 with EF 55-60% - Lipid panel negative. - Neuro consulted, appreciate input recommendations. Status post loop recorder placement. This could be the cause of CVA. - Fall and seizure precautions. - PT ordered, recommendations for rehab/home health care. Shigella virus Diarrhea secondary to above - C diff negative. Ensure hydration. Continue IVF for now. - Continue Cipro. Hypertension, chronic. -Blood pressure stable. History of Type 2 DM - A1c checked last month, 7.7. - Continue on Accu-Cheks and insulin sliding scale. DVT prophylaxis: Heparin. Discharge Planning: Pending clinical improvement. If diarrhea slows overnight possible DC in am.
[2017-12-23] MEDS: amLODIPine 10 MG Tablet PO SCH (21:34)
[2017-12-24] MEDS: Insulin NovoLIN Regular Correctional Sugar Inj SQ SCH ×3 (03:00→11:47)
[2017-12-24] MEDS: Isosorbide Mononitrate 30 MG ER 24HR Tablet (Imdur) PO SCH (06:08)
[2017-12-24 07:01] LABS: Baso % (Auto) 0.6 % (0.0-2.0); Eos # (Auto) 0.1 th/mm3 (0.0-0.4); Eos % (Auto) 3.1 % (0.0-4.0); Hematocrit 27.7 % (39.0-51.0); Hemoglobin 9.1 gm/dL (13.0-17.0); Lymph # (Auto) 0.7 th/mm3 (1.0-4.8); Lymph % (Auto) 24.2 % (9.0-44.0); Mean Corpuscular HGB Conc 32.9 % (32.0-36.0); Mean Corpuscular Hemoglobin 26.2 pg (27.0-34.0); Mean Corpuscular Volume 79.7 fL (80.0-100.0); Mean Platelet Volume 8.4 fL (7.0-11.0); Mono # (Auto) 0.2 th/mm3 (0.0-0.9); Mono % (Auto) 7.7 % (0.0-8.0); Neut # (Auto) 1.9 th/mm3 (1.8-7.7); Neut % (Auto) 64.4 % (16.0-70.0); Platelet Count 179 th/mm3 (150-450); Red Blood Count 3.48 mil/mm3 (4.50-5.90); Red Cell Distribution Width 13.6 % (11.6-17.2); White Blood Count 2.9 th/mm3 (4.0-11.0)
[2017-12-24] MEDS: Metoprolol Tartrate 25 MG Tablet PO SCH (08:21)
[2017-12-24] MEDS: Lisinopril 20 MG Tablet PO SCH (08:22)
[2017-12-24] MEDS: Ciprofloxacin 500 MG Tablet PO SCH (08:22)
--- NOTE | 2017-12-24 08:31 | P.PNIM ---
Physical Exam Vital signs: Vital Signs 12/23/17 11:27 12/23/17 15:20 12/23/17 20:00 Temperature 97.2 F L 97 F L 96.6 F L Pulse Rate 68 53 L 63 Respiratory Rate 20 20 20 Blood Pressure 115/64 104/55 L 119/65 Pulse Oximetry 93 L 92 L 99 12/24/17 00:00 12/24/17 07:57 Temperature 96.7 F L 96.9 F L Pulse Rate 57 L 74 Respiratory Rate 20 20 Blood Pressure 134/68 132/74 Pulse Oximetry 99 95 Intake & Output 12/23/17 12/24/17 12/24/17 18:59 06:59 18:59 Intake Total 3255 / 3255 675 / 675 Output Total 800 / 800 650 / 650 Balance 2455 / 2455 25 / Weight 57.6 kg Intake: IV 2415 / 2415 435 / 435 NS Inj 1,000 ML @ 70 mls/hr IV. 2415 / 2415 435 / 435 CONT .[id number] [facility] Rx#: [id number] Oral 840 / 840 240 / 240 Output: Urine 800 / 800 650 / 650 Other: Date of Last Bowel Movement 12/23/17 12/23/17 # Bowel Movements 1 3 Results - Labs CBC & Chem 7: 12/24/17 06:39 12/20/17 17:56 Laboratory Results - last 24 hr 12/23/17 12/23/17 12/23/17 11:55 17:06 21:24 CBC w Diff WBC RBC Hgb Hct MCV MCH MCHC RDW Plt Count MPV Neut % (Auto) Lymph % (Auto) [place] % (Auto) Eos % (Auto) Baso % (Auto) Neut # (Auto) Lymph # (Auto) [place] # (Auto) Eos # (Auto) Baso # (Auto) WBC Differential Differential Comment POC Glucose 200 H 230 H 188 H 12/24/17 12/24/17 12/24/17 02:08 06:39 07:24 CBC w Diff Auto diff final WBC 2.9 L RBC 3.48 L Hgb 9.1 L Hct 27.7 L MCV 79.7 L MCH 26.2 L MCHC 32.9 RDW 13.6 Plt Count 179 MPV 8.4 Neut % (Auto) 64.4 Lymph % (Auto) 24.2 [place] % (Auto) 7.7 Eos % (Auto) 3.1 Baso % (Auto) 0.6 Neut # (Auto) 1.9 Lymph # (Auto) 0.7 L [place] # (Auto) 0.2 Eos # (Auto) 0.1 Baso # (Auto) 0.0 WBC Differential . Differential Comment . POC Glucose 131 H 123 H Assessment and Plan - Assessment (1) Transient ischemic attack Code(s): G45.9 - Transient cerebral ischemic attack, unspecified Status: Acute (2) Encephalopathy acute Code(s): G93.40 - Encephalopathy, unspecified Status: Acute - Plan 82-year-old male with past medical history significant for bladder cancer, hypertension, history of CVA/TIA and diabetes admitted with altered mental status. Prior hospitalization in November of this year. Acute CVA Encephalopathy, with underlying dementia or cognitive impairment - Patient was found lying on the ground at home with apparent AMS. - Head CT negative. - MRI/MRA showing small focal area along the right cerebral vertex characteristic of a small focal acute to subacute infarct. There is diffuse bilateral cortical atrophy. - Carotid US with no significant vaso-occlusive dz - Echo from November 2016 with EF 55-60% - Lipid panel negative. - Neuro consulted, appreciate input recommendations. Status post loop recorder placement. This could be the cause of CVA. - Fall and seizure precautions. - PT ordered, recommendations for rehab/home health care. Shigella virus Diarrhea secondary to above - C diff negative. Ensure hydration. Continue IVF for now. - Continue Cipro. Hypertension, chronic. -Blood pressure stable. History of Type 2 DM - A1c checked last month, 7.7. - Continue on Accu-Cheks and insulin sliding scale. DVT prophylaxis: Heparin. Discharge Planning: Pending clinical improvement. If diarrhea slows overnight possible DC in am.
--- NOTE | 2017-12-24 09:03 | P.DS ---
Date of admission: 12/21/17 15:19 Primary care physician: Kerri Glasgow MD Brief History from admission: This is an 82-year-old male patient with a known medical history of previous CVA , diabetes, hypertension and seizure history who presented to the ED with altered mental status. Supposedly he lives with his ex-, patient was found on the ground unresponsive by his grandson today. Supposedly there was reports of delirium for the past few days, stating that patient was not making any sense. It should be also noted that patient has been incontinent of stool roughly 3 times per day especially with ambulating. Patient's PCP is Dr. Duque, and was called by the family yesterday and advised to come to the ED. Patient was recently admitted in early November, found to have a seizure as well as a stroke at that time. Neurology saw patient and stroke workup was done. Patient was advised to follow-up with neurology upon discharge although this is questionable whether he has followed up. Patient denies any recent illness including fever, chills, cough, shortness of breath, abdominal pain, nausea, vomiting or dysuria. He does admit to multiple episodes of diarrhea although C. difficile toxin in ED was negative. It should also be noted that patient's case was evaluated by DCF during prior hospitalization. Case management requested to assist in further evaluation. At the time of assessment this morning patient is sitting up in his wheelchair about to go down for an MRI. Patient is alert and awake, pleasantly confused, does state he is in the hospital although unaware of time and year. He does follow commands without any residual weakness. Right eye pupil is notably larger than the left - roughly 4 mm in the right and 2 mm in the left. Right pupil is not reactive. This is unclear if this is chronic for patient. He admits to previous cataract in the right eye. DS: Diagnosis - Discharge Diagnosis (1) Transient ischemic attack Status: Acute (2) Encephalopathy acute Status: Acute (3) Shigella infection Status: Acute DS: Medications - Discharge Medications Prescriptions: ciprofloxacin HCl 500 mg PO Q12HR 3 Days #6 tab DS: Summary Hospital Course: 82-year-old male with past medical history significant for bladder cancer, hypertension, history of CVA/TIA and diabetes admitted with altered mental status. Prior hospitalization in November of this year. Patient presented with encephalopathy does have underlying dementia. Patient was found lying on the ground at home with apparent EMS. Head CT negative upon presentation. Patient did have an acute CVA MRI/MRA showing small focal area along the right cerebral vertex characteristic of a small focal acute to subacute infarct. There is diffuse bilateral cortical atrophy.Carotid US with no significant vaso- occlusive dz. Echo from November 2016 with EF 55-60%. Lipid panel negative. Neurology followed patient during hospitalization, patient underwent loop recorder placement. Rule out any cause of CVA secondary to atrial fibrillation. She will be placed back on Plavix and aspirin follow-up with neurology and cardiology upon discharge. PT has been ordered and followed patient during hospitalization, home health care ordered and arranged by case management. Patient did present to the ED with diarrhea, C. difficile was negative. Shigella was positive in stool studies. Diarrhea has improved upon day of discharge. We will continue antibiotics, Cipro. Blood pressure stable during hospitalization. Patient has history of diabetes, was stable during hospitalization. Patient will follow up with PCP, neurology and cardiology. Patient is alert and oriented on day of discharge, understanding of plan. White blood cells did drop from 12-3 during hospitalization over the course of 4 days. Patient has been afebrile with no significant drop in temperature. Patient was advised to follow-up with PCP to follow white blood cell count. - Time Spent with Patient Total time spent providing and/or coordinating discharge services: Greater than 30 minutes - Quality: VTE Deep Vein Thrombosis/Pulmonary Embolism Present on Admission: No Exam Vital signs: Vital Signs 12/23/17 11:27 12/23/17 15:20 12/23/17 20:00 Temperature 97.2 F L 97 F L 96.6 F L Pulse Rate 68 53 L 63 Respiratory Rate 20 20 20 Blood Pressure 115/64 104/55 L 119/65 Pulse Oximetry 93 L 92 L 99 12/24/17 00:00 12/24/17 07:57 Temperature 96.7 F L 96.9 F L Pulse Rate 57 L 74 Respiratory Rate 20 20 Blood Pressure 134/68 132/74 Pulse Oximetry 99 95 Intake & Output 12/23/17 12/24/17 12/24/17 18:59 06:59 18:59 Intake Total 3255 / 3255 675 / 675 Output Total 800 / 800 650 / 650 Balance 2455 / 2455 25 / 25 Weight 57.6 kg Intake: IV 2415 / 2415 435 / 435 NS Inj 1,000 ML @ 70 mls/hr IV. 2414 435 / 435 CONT .[id number] NUSRAT Rx#: [id number] Oral 840 / 840 240 / 240 Output: Urine 800 / 800 650 / 650 Other: Date of Last Bowel Movement 12/23/17 12/23/17 # Bowel Movements 1 3 Narrative: GENERAL: Well-developed, thin elderly male patient in NAD. SKIN: Warm and dry. No rash. HEAD: Normocephalic. Atraumatic. EYES: Right pupil 4 mm nonreactive, left pupil 2 mm reactive. This is chronic for patient. Neuro aware. No scleral icterus. No injection or drainage. ENT: No nasal bleeding or discharge. Mucous membranes pink and moist. NECK: Supple. Trachea midline. CARDIOVASCULAR: Regular rate and rhythm. S1, S2 noted. No murmur appreciated. RESPIRATORY: No accessory muscle use. Clear to auscultation. Breath sounds equal bilaterally. GASTROINTESTINAL: Abdomen soft, non-tender, nondistended. Normoactive bowel sounds x4. MUSCULOSKELETAL: No obvious deformities. Extremities without clubbing, cyanosis , or edema. NEUROLOGICAL: Awake and alert. No obvious cranial nerve deficits. Motor grossly within normal limits. 5/5 muscle strength in bilateral upper and lower extremities. Normal speech. PSYCHIATRIC: Appropriate mood and affect; insight and judgment normal. - Constitutional no acute distress - Routine HEENT Exam Head: Present: normocephalic ENT: Present: mucous membranes moist - Routine Neck Exam Present: supple Results Procedures completed during hospitalization: See discharge summary. Loop recorder placement. Labs on day of discharge: Labs from last 24 hours 12/24/17 12/24/17 12/24/17 07:24 06:39 02:08 CBC w Diff Auto diff final WBC 2.9 L RBC 3.48 L Hgb 9.1 L Hct 27.7 L MCV 79.7 L MCH 26.2 L MCHC 32.9 RDW 13.6 Plt Count 179 MPV 8.4 Neut % (Auto) 64.4 Lymph % (Auto) 24.2 Tyler % (Auto) 7.7 Eos % (Auto) 3.1 Baso % (Auto) 0.6 Neut # (Auto) 1.9 Lymph # (Auto) 0.7 L Tyler # (Auto) 0.2 Eos # (Auto) 0.1 Baso # (Auto) 0.0 WBC Differential . Differential Comment . POC Glucose 123 H 131 H 12/23/17 12/23/17 12/23/17 21:24 17:06 11:55 CBC w Diff WBC RBC Hgb Hct MCV MCH MCHC RDW Plt Count MPV Neut % (Auto) Lymph % (Auto) Tyler % (Auto) Eos % (Auto) Baso % (Auto) Neut # (Auto) Lymph # (Auto) Tyler # (Auto) Eos # (Auto) Baso # (Auto) WBC Differential Differential Comment POC Glucose 188 H 230 H 200 H - Impressions ITS Impressions Chest X-Ray 12/20/17 19:16 CONCLUSION: No acute cardiopulmonary disease. Head CT 12/20/17 19:16 CONCLUSION: 1. No acute abnormality seen. 2. Mild atrophy. 3. Decreased density in the cerebral white matter likely secondary to small vessel ischemic change. 4. Sphenoid sinus disease. Carotid Doppler Study 12/21/17 00:00 CONCLUSION: 1. Right Internal Carotid Artery: No significant stenosis or atherosclerotic plaque is visualized. 2. Left Internal Carotid Artery: No significant stenosis or atherosclerotic plaque is visualized. 3. Antegrade flow both vertebral arteries. Head MRI 12/21/17 22:16 CONCLUSION: 1. Small focal area of increased signal high along the right cerebral vertex on the diffusion-weighted images characteristic for a small focal acute to subacute infarct. 2. Diffuse bilateral cortical atrophy and moderate diffuse chronic white matter changes are noted bilaterally. 3. Evidence of chronic sinus disease in the left maxillary sinus and sphenoid sinuses. Head MRA 12/21/17 22:16 CONCLUSION: 1. Unremarkable MRA of the brain. Discharge Plan - Discharge Disposition Patient Disposition: /Home Health Service - Discharge Condition Condition: Stable - Discharge Order Discharge Orders: Discharge Order (Routine); Ordered 12/24/17 Ordered By: Bre Crawford - Discharge Details Anticipated Discharge Date: 12/24/17 - Physicians Team Primary Care Provider: Kerri Glasgow Attending Provider: Cheyenne Almeida Other Providers: Marcos Miller MD ; Darren Chang MD ; Benoit Hope MD ; Shaheen Jamison
--- NOTE | 2017-12-24 09:04 | P.DCO ---
- Physical Therapy Order: Evaluate and treat, Improve ambulation, Strength and gait training - Home Health Nursing Order: Medical education, Signs/symptoms of disease process, Medication education-adverse effect, Nursing assessment with vital signs - Certification I have seen patient Ernie Elliott on 12/24/17. My clinical findings support the need for the requested home health care services because: Deconditioned with increased weakness I certify that my clinical findings support that this patient is homebound because: Unsteady gait/balance
[2017-12-24] MEDS: Sod Chloride 0.9% Inj 1,000 ML IV.CONT SCH ×2 (11:20→11:47)
[2017-12-24] MEDS: Heparin - SQ 10,000 UNITS/ML Vial SQ SCH (11:47)
[2017-12-26 16:57] LABS: Methylmalonic Acid 0.15 nmol/mL (<=0.40)
== END 2017-12-24 17:58 | disposition home health service (06) ==
LOC: PHEDA 16:21 → PHED 16:21 → PH3 23:09 → HDIC 12-22 09:22 → PH3 12-22 14:45
PROVIDERS: ADMIT Hospitalist; ATTEND Hospitalist